=== PATIENT | female | born 1940 | race Caucasian/White ===

== ENCOUNTER 2017-09-18 19:50 | Inpatient (IN) | payer OTHER, MEDICARE ==
[~2017-09-18] VITALS: Ht 165.1 cm; Wt 70.3 kg
[~2017-09-18 19:50] MED LIST: ADVAIR 250-501 EACH INH; ADVAIR DISKUS 21 DSK INH; ALLEGRA ALLERG180 M1 PO; ASPIRIN EC81 M1 PO; B-12500 MC1 PO; BACTRIM 400-801 EACH PO; BETAMETHASONE D15 G4 TOP; CALCIUM + D 5001 TAB PO; CALCIUM + D 6001 TAB PO; CENTRUM SILVER1 EAC3 PO; CO Q-10100 MG PO; CO Q-10200 MG PO; CO-Q-10 200 MG-1 SGL PO; COLACE100 MG PO; COUMADIN 5 MG TA5 MG PO; CRESTOR20 M2 PO; CRESTOR40 M2 PO; DILANTIN100 M1 PO; DOXYCYCLINE HY100 M4 PO; DULCOLAX5 M1 PO; FIBER 6 TABLE1000 MG PO; FISH OIL 1,0001 EAC1 PO; FUROSEMIDE20 M1 PO; GLUCOSAMINE CHO1 CAP PO; GLUCOSAMINE HC500 MG PO; GLUCOSAMINE-CH1 EACH PO; HEARTBURN PREVE20 MG PO; HYDROCODON-ACE1 EAC2 PO; K-TAB ER20 MEQ PO; LASIX20 M1 IV; LASIX80 M1 PO; LEVOCETIRIZINE D5 M1 PO; LEVOFLOXACIN500 MG PO; LEVOTHYROXINE50 MCG PO; LIORESAL 10MG T10 MG PO; LIPITOR40 M1 PO; LIPITOR80 M1 PO; LOPRESSOR50 M1 PO; LOVAZA1 GM PO; MEDROL DOSEPAK1 PAC PO; METOLAZONE2.5 M1 PO; METOPROLOL TART50 M1 PO; MOBIC15 MG PO; MUCINEX1200 MG PO; NASONEX17 GM NASB; NATURAL IRON65 MG PO; NEURONTIN300 M1 PO; OMEGA 31000 MG PO; OMEGA-31 SGL PO; PREDNISONE20 M1 PO; PRINIVIL5 M1 PO; PROAIR HFA0.09 MG/Ac INH; SYNTHROID25 MCG PO; TYLENOL EXTRA500 M2 PO; VICODIN 5-3001 EACH PO; VITAB121000 PO; VITAMIN C1000 M1 PO; VITAMIN C1000 M4 PO; VITAMIN D-32000 UNIT PO; VITAMIN D32000 IU PO; ZETIA10 M1 PO
--- NOTE | 2017-09-18 21:31 | ED UPPER/LOWER EXTREMITY COMPL ---
History of Present Illness General Chief Complaint: General Adult Stated Complaint: "RT LEG RED, SWOLLEN, PAINFULL, STIFF" Source: patient Exam Limitations: no limitations Vital Signs & Intake/Output Vital Signs & Intake/Output Vital Signs Date Time Temp Pulse Resp B/P B/P Pulse O2 O2 Flow FiO2 Mean Ox Delivery Rate 09/186 98.5 111 20 136/67 95 Room Air 09/18 1956 95.8 116 18 129/78 97 Room Air Allergies Coded Allergies: naproxen (Intermediate, RASH, ABD PAIN 03/31/17) tramadol (Intermediate, HEART PALPATATIONS 09/18/17) Penicillins (Mild, RASH 03/31/17) amoxapine (Mild, RASH 03/31/17) duloxetine (From CYMBALTA) (Mild, BLURRY VISION 09/18/17) gabapentin (Mild, BLURRY VISION 09/18/17) pregabalin (From LYRICA) (Mild, BLURRY VISION 09/18/17) amoxicillin (UNKNOWN PER PT EITHER HEART PALPITATIONS OR RASH 04/07/17) PER ORDER SHEET OF 02/18/17 (SJS) ibuprofen (HEART RACING 03/31/17) Reconcile Medications Acetaminophen (Tylenol Extra Strength) 500 MG TABLET 2 TAB PO PRN PAIN ( Reported) Ascorbic Acid (Vitamin C) 1,000 MG TABLET 2,000 MG PO 1200 SUPPLEMENT ( Reported) Aspirin (Ecotrin*) 81 MG TABLET.DR 1 TAB PO QAM HEART/BLOOD (Reported) Betamethasone Dipropionate 0.05 % CREAM..G. 1 FLETCHER TOP BID LEG RASH (Reported) apply to affected area(s) Bisacodyl (Dulcolax) 5 MG TABLET.DR 1 TAB PO QPM GI (Reported) Bran/Gum/Fib/Meredith/Psyl/Kelp/Pec (Fiber 6 Tablet) (Unknown Strength) TABLET ( Unknown Dose) PO QAM OAT BRAN 1000MG SUPPLEMENT (Reported) Cholecalciferol (Vitamin D3) (Vitamin D-3) 2,000 UNIT TABLET 1 TAB PO 1200 VITAMIN SUPPORT (Reported) Cyanocobalamin (Vitamin B-12) (B-12) 500 MCG TABLET 1 TAB PO 1200 VITAMIN SUPPORT (Reported) Ezetimibe (Zetia) 10 MG TABLET 1 TAB PO QPM CHOLESTEROL (Reported) Famotidine (Heartburn Prevention) 20 MG TABLET 1 TAB PO BID GI ANTACID ( Reported) Furosemide (Lasix) 80 MG TABLET 1 TAB PO DAILY Water pill . Gabapentin (Neurontin) 300 MG CAPSULE 1 CAP PO QPM NERVE PAIN (Reported) Glucosam HCl/Chondro Ulloa A/C/Mn (Glucosamine-Chondroitin Cap) 1 EACH CAPSULE 1 CAP PO 1200 SUPPLEMENT (Reported) Hydrocodone/Acetaminophen (Vicodin 5-300 MG Tablet) 5 MG-300 MG TABLET 1 TAB PO AD PRN PAIN (Reported) Levocetirizine Dihydrochloride 5 MG TABLET 1 TAB PO QPM ALLERGIES (Reported) Levothyroxine Sodium 50 MCG TABLET 1 TAB PO DAILY AC THYROID (Reported) Lisinopril (Prinivil) 5 MG TABLET 1 TAB PO DAILY blood pressure . Metoprolol Tartrate (Lopressor) 50 MG TABLET 1 TAB PO BID HTN (Reported) Mometasone Furoate (Nasonex) 50 MCG SPRAY.PUMP 1 SPRAY NASB DAILY PRN ALLERGIES (Reported) Multivit-Min/FA/Lycopen/Lutein (Centrum Silver Tablet) 0.4 MG-300 MCG-250 MCG TABLET 1 TAB PO 1200 VITAMIN SUPPORT (Reported) Hurley-3 Fatty Acids/Fish Oil (Fish Oil 1,000 MG Softgel) 1 EACH CAPSULE 2 CAP PO 1200 SUPLEMENT (Reported) Phenytoin (Dilantin) 100 MG CAPSULE 2 CAP PO BID SEIZURES (Reported) Potassium Chloride (K-Tab ER) 20 MEQ TABLET.ER 2 TAB PO DAILY Potassium supplement . Prednisone 20 MG TABLET 1 TAB PO TID STEROID (Reported) Rosuvastatin Calcium (Crestor) 40 MG TABLET 1 TAB PO QPM CHOLESTEROL ( Reported) Sulfamethoxazole/Trimethoprim (Bactrim 400-80 MG Tablet) 400 MG-80 MG TABLET 1 TAB PO QAM PROPHYLAXIS (Reported) Ubidecarenone (Co Q-10) 200 MG CAPSULE 1 CAP PO 1200 SUPPLEMENT (Reported) Triage Note: PT FROM HOME C/O RIGH LEG SWELLING X2 DAYS. PT STATES 2 DAYS AGO PT WALKED INTO A BOX AND HAD A SMALL ABRASION TO PTS RIGHT LOWER EXT, PT STATES THAT CLEAR FLOOD WAS OOZING OUT ALONG WITH MINIMAL AMOUNTS OF BLOOD. PTS LEG CONTINUED TO OOZE THROUGHOUT THE PAST 2X DAYS, PT STATED SHE APPLIED AN LUIS MIGUEL WRAP ON THE OOZING LAST NIGHT. WHEN PT AWOKE THE LUIS MIGUEL WRAP WAS TOO TIGHT AND PT STATED THE LOWER EXT WAS WARM, TENDER,SWOLLEN AND RED. THIS RN UNABLE TO VIEW FULL LEG IN TRIAGE DUE TO PT WEARING JEANS, PT STATES UNABLE TO MOVE LEG "IT FEELS STIFF AND LIKE ITS GOING TO BURST". PT IS ON LASIX 80MG 2 TIMES DAILY. PT PROVIDED WITH WHEELCHAIR. AFEBRILE IN TRIAGE. Triage Nurses Notes Reviewed? yes Onset: Gradual Duration: hour(s): Timing: recent history Severity: moderate Pain/Injury Location: Right: Leg. Method of Injury: redness, swelling Modifying Factors: Improves With: rest. Worsens With: movement. Associated Symptoms: swelling, redness HPI: 76 yo woman on steroids for "kidney problems" presents with redness, tenderness, swelling of right leg. "At 3:15 there was a red spot that was tender.... and then over the next several hours, the redness got worse... it started to spread along my leg." She notes no fever, chills, dyspnea. She is otherwise well. Past History Travel History Traveled to [place] past 21 day No Medical History Any Pertinent Medical History? see below for history Neurological: seizure EENT: allergies, hearing loss Cardiovascular: hypertension, hyperlipidemia, CLOGGED HEART ARTERIES Respiratory: NONE Gastrointestinal: NONE Hepatic: NONE Renal: NONE Musculoskeletal: ARTHRITIS LYMPHeDEMA Psychiatric: PANIC ATTACK Endocrine: NONE Blood Disorders: NONE Cancer(s): NONE BASKETBALL SCOUT/Reproductive: NONE History of MRSA: No History of VRE: No History of CDIFF: No Surgical History Surgical History: hip replacement, knee replacement Psychosocial History Who do you live with Spouse Services at Home None What is your primary language Bruneian Tobacco Use: Never used Family History Family History, If Any: DAUGHTER MOTHER FH: breast cancer FATHER FH: Parkinson's disease Relation not specified for: FH: rheumatoid arthritis Hx Contributory? No Review of Systems Review of Systems Constitutional: Reports: no symptoms. EENTM: Reports: no symptoms. Respiratory: Reports: no symptoms. Cardiovascular: Reports: no symptoms. Gastrointestinal/Abdominal: Reports: no symptoms. Genitourinary: Reports: no symptoms. Musculoskeletal: Reports: no symptoms. Skin: Reports: no symptoms. Neurological/Psychological: Reports: no symptoms. Hematologic/Endocrine: Reports: no symptoms. Immunological: Reports: no symptoms. All Other Systems: Reviewed and Negative Physical Exam Physical Exam General Appearance: well developed/nourished, mild distress Head: atraumatic Eyes: Bilateral: normal appearance. Ears, Nose, Throat: normal pharynx, normal ENT inspection, hearing grossly normal Neck: normal inspection, supple Cardiovascular/Respiratory: regular rate/rhythm Back: normal inspection Leg Right: induration, redness, tenderness on Skin: intact, normal color, warm/dry Lymphatic: no anterior cervical chavo Progress Differential Diagnosis: cellulitis vs other. Plan of Care: Orders Procedure Date/time Status Saline Lock 09/18 2309 Active Misc Message 09/18 2309 Active ED Holding Orders 09/18 2309 Active Admit to inpatient 09/18 2309 Active Vital Signs 09/18 2309 Active EKG 09/18 2309 Active Code Status 09/18 2309 Active BLOOD CULTURE 09/18 2144 Active COMPREHENSIVE METABOLIC PANEL 09/18 2140 Complete CBC WITHOUT DIFFERENTIAL 09/18 2140 Complete Current Medications Sig/Arsalan Start time Last Medication Dose Stop Time Status Admin Sodium Chloride 1,000 ML BOLUS ONE 09/18 2299 AC 09/18 (Normal Saline 0.9%) 09/18 2359 2336 Laboratory Tests 09/18/170: Anion Gap 8, Estimated GFR > 60, BUN/Creatinine Ratio 37.8 H, Glucose 157 H, Calcium 8.3 L, Total Bilirubin 0.3, AST 50 H, ALT 44, Alkaline Phosphatase 86, Total Protein 6.1 L, Albumin 2.9 L, Globulin 3.2, Albumin/Globulin Ratio 0.9 L, CBC w Diff MAN DIFF ORDERED, RBC 4.17 L, MCV 100.2 H, MCH 34.2 H, MCHC 34.2, RDW 13.2, MPV 7.1 L, Gran % 93.9 H, Lymphocytes % 3.6 L, Monocytes % 2.2, Eosinophils % 0.1, Basophils % 0.2, Absolute Granulocytes 17.3 H, Segmented Neutrophils 84 H, Band Neutrophils 4, Absolute Lymphocytes 0.7 L, Lymphocytes 9 L, Monocytes 2, Absolute Monocytes 0.4, Absolute Eosinophils 0, Absolute Basophils 0, Metamyelocytes 1, Platelet Estimate ADEQUATE, Macrocytic Cells 1+, Fld Total RBCs Counted 100 Microbiology 09/18 2239 BLOOD: Blood Culture - RECD 09/18 2140 BLOOD: Blood Culture - CAN Cancelled: Quantity not sufficient for Aerobic blood culture bottle. Diagnostic Imaging: Viewed by Me: Radiology Read. Discussed w/RAD: Radiology Read. Radiology Impression: PATIENT: JENSEN MILLER PRESENT AGE: 76 PATIENT ACCOUNT NO: [id number] : 40 LOCATION: [facility] ORDERING PHYSICIAN: Sagar Cuevas MD SERVICE DATE: 09/18/17 EXAM TYPE: RAD - XRY-KNEE COMPLETE RIGHT; [id number], RIGHT EXAMINATION: XR TIBIA AND FIBULA, RIGHT XR KNEE, RIGHT CLINICAL INFORMATION: Edema, question septicemias gas. COMPARISON: None TECHNIQUE: AP and lateral views of the right tibia and fibula were obtained. 4 views of the right knee were obtained. FINDINGS: Right knee: The patient is status post total knee arthroplasty. There is diffuse edema of the subcutaneous tissues of the knee. There is no joint effusion. No subcutaneous foci of gas. No evidence of hardware loosening. Right tibia, fibula : There is diffuse edema of the subcutaneous tissues of the right lower extremity. No foci of gas identified on the radiographs. The right tibia and fibula appear intact. Limited views of the right ankle are grossly unremarkable. IMPRESSION: Diffuse subcutaneous edema involving the right knee and right lower extremity. No subcutaneous emphysema identified. Right knee hardware appears intact. DICTATED BY: Socorro Winters MD DATE/TIME DICTATED:09/18/172212 COMPUTATIONAL SCIENTIST:ANIYA DATE/TIME TRANSCRIBED:09/18/172212 CONFIDENTIAL, DO NOT COPY WITHOUT APPROPRIATE AUTHORIZATION. <Electronically signed in Other Vendor System> SIGNED BY: Socorro Winters MD 09/18/172218 Initial ED EKG: sinus tach, non specific st segment changes. Departure Departure Disposition: STILL A PATIENT Condition: Stable Clinical Impression Primary Impression: Cellulitis Referrals: Jaron Tanner MD (PCP/Family) Departure Forms: Customer Survey General Discharge Information Admission Note Spoke With: Oneil FONTENOT,Leticia Documentation of Exam: Documentation of any treatments & extenuating circumstances including Concerns Regarding Discharge (functional status, medication knowledge or non-compliance, living conditions, etc.) that warrant an admission rather than observation: Pt on chronic steroids with cellulitis, elevated wbc count, merits iv abx, close exam.
[2017-09-18 22:17] LABS: ABSOLUTE BASOPHIL COUNT 0 /CUMM (0.0-0.2); ABSOLUTE EOSINOPHIL COUNT 0 /CUMM (0.0-0.7); ABSOLUTE GRANULOCYTE CT 17.3 /CUMM (1.4-6.5); ABSOLUTE LYMPH COUNT 0.7 /CUMM (1.2-3.4); ABSOLUTE MONOCYTE COUNT 0.4 /CUMM (0.10-0.60); BASOPHIL % 0.2 % (0.0-2.0); EOSINOPHIL % 0.1 % (0-5); GRANULOCYTE % 93.9 % (42.2-75.2); HEMATOCRIT 41.8 % (37-47); MEAN CORPUSCULAR HGB 34.2 PG (27.0-31.0); MEAN CORPUSCULAR HGB CONC 34.2 G/DL (33.0-37.0); MEAN CORPUSCULAR VOLUME 100.2 FL (81.0-99.0); MEAN PLATELET VOLUME 7.1 FL (7.4-10.4); PLATELET COUNT 397 /CUMM (130-400); RBC DISTRIBUTION WIDTH 13.2 % (11.5-14.5); RED BLOOD CELL CT 4.17 /CUMM (4.20-5.40); WHITE BLOOD CELL COUNT 18.5 /CUMM (4.8-10.8)
--- NOTE | 2017-09-18 22:19 | RADIOLOGY REPORT ---
EXAMINATION: XR TIBIA AND FIBULA, RIGHT XR KNEE, RIGHT CLINICAL INFORMATION: Edema, question septicemias gas. COMPARISON: None TECHNIQUE: AP and lateral views of the right tibia and fibula were obtained. 4 views of the right knee were obtained. FINDINGS: Right knee: The patient is status post total knee arthroplasty. There is diffuse edema of the subcutaneous tissues of the knee. There is no joint effusion. No subcutaneous foci of gas. No evidence of hardware loosening. Right tibia, fibula: There is diffuse edema of the subcutaneous tissues of the right lower extremity. No foci of gas identified on the radiographs. The right tibia and fibula appear intact. Limited views of the right ankle are grossly unremarkable. IMPRESSION: Diffuse subcutaneous edema involving the right knee and right lower extremity. No subcutaneous emphysema identified. Right knee hardware appears intact.
--- NOTE | 2017-09-19 01:10 | History & Physical ---
Clayton FONTENOT,[facility] 09/19/17 0110: General Information and HPI MD Statement: I have seen and personally examined JENSEN CURIEL and documented this H&P. The patient is a 76 year old F who presented with a patient stated chief complaint of [right leg swelling, pain and redness]. Source of Information: patient, old records Exam Limitations: unable to give history, not alert/orientated, confusion, poor historian History of Present Illness: The patient is a 76-year-old female with past medical history of hypertension, hyperlipidemia, peripheral vascular disease, seizure disorder, chronic lower extremity lymphedema, nephrotic syndrome (renal biopsy shows FSGS) on steroids and chronic lower back pain. She presented to [facility] on 09/19 with complaint of swelling, pain and redness of right lower extremity. The patient was in her state of health until 2 days back when she hit the refrigerator box. She had a small abrasion on right lower extremity near her ankle. It was oozing clear liquid. Yesterday night she wrapped her right lower extremity in Galindo wrap. When she woke up she felt that Galindo wrap was too tight and her lower extremity was significantly swollen. Redness was previously present but has become worse and was extending upwards. Her leg is extremely painful. She denies any fevers or chills. She reports shortness of breath on review of system. Denies chest pain palpitations nausea vomiting or abdominal pain. Of note last month patient had a venous procedure with as per patient's . I called patient's to obtain the history and he gives a similar story. Patient appears to be little bit confused. Is alert but not oriented. Complains of 10/10 leg pain. Of note pt was recently admitted to ICU [facility] and was discharged on 05/26/2017 after being treated forl severely hyponatremia and hypokalemia likely secondary to overdiuresis in setting of nephrotic syndrome Allergies/Medications Allergies: Coded Allergies: naproxen (Intermediate, RASH, ABD PAIN 03/31/17) tramadol (Intermediate, HEART PALPATATIONS 09/18/17) Penicillins (Mild, RASH 03/31/17) amoxapine (Mild, RASH 03/31/17) duloxetine (From CYMBALTA) (Mild, BLURRY VISION 09/18/17) gabapentin (Mild, BLURRY VISION 09/18/17) pregabalin (From LYRICA) (Mild, BLURRY VISION 09/18/17) amoxicillin (UNKNOWN PER PT EITHER HEART PALPITATIONS OR RASH 04/07/17) PER ORDER SHEET OF 02/18/17 (SJS) ibuprofen (HEART RACING 03/31/17) Home Med list Acetaminophen (Tylenol Extra Strength) 500 MG TABLET 2 TAB PO PRN PAIN ( Reported) Ascorbic Acid (Vitamin C) 1,000 MG TABLET 2,000 MG PO 1200 SUPPLEMENT ( Reported) Aspirin (Ecotrin*) 81 MG TABLET.DR 1 TAB PO QAM HEART/BLOOD (Reported) Betamethasone Dipropionate 0.05 % CREAM..G. 1 FLETCHER TOP BID LEG RASH (Reported) apply to affected area(s) Bisacodyl (Dulcolax) 5 MG TABLET.DR 1 TAB PO QPM GI (Reported) Bran/Gum/Fib/Meredith/Psyl/Kelp/Pec (Fiber 6 Tablet) (Unknown Strength) TABLET ( Unknown Dose) PO QAM OAT BRAN 1000MG SUPPLEMENT (Reported) Cholecalciferol (Vitamin D3) (Vitamin D-3) 2,000 UNIT TABLET 1 TAB PO 1200 VITAMIN SUPPORT (Reported) Cyanocobalamin (Vitamin B-12) (B-12) 500 MCG TABLET 1 TAB PO 1200 VITAMIN SUPPORT (Reported) Ezetimibe (Zetia) 10 MG TABLET 1 TAB PO QPM CHOLESTEROL (Reported) Famotidine (Heartburn Prevention) 20 MG TABLET 2 TAB PO BID GI ANTACID ( Reported) Furosemide (Lasix) 80 MG TABLET 1 TAB PO DAILY Water pill . Glucosam HCl/Chondro Ulloa A/C/Mn (Glucosamine-Chondroitin Cap) 1 EACH CAPSULE 1 CAP PO 1200 SUPPLEMENT (Reported) Hydrocodone/Acetaminophen (Vicodin 5-300 MG Tablet) 5 MG-300 MG TABLET 1 TAB PO AD PRN PAIN (Reported) Levocetirizine Dihydrochloride 5 MG TABLET 1 TAB PO QPM ALLERGIES (Reported) Levothyroxine Sodium 50 MCG TABLET 1 TAB PO DAILY AC THYROID (Reported) Metolazone 2.5 MG TABLET 1 TAB PO DAILY WATER PILL (Reported) Metoprolol Tartrate (Lopressor) 50 MG TABLET 1 TAB PO BID HTN (Reported) Mometasone Furoate (Nasonex) 50 MCG SPRAY.PUMP 1 SPRAY NASB DAILY PRN ALLERGIES (Reported) Multivit-Min/FA/Lycopen/Lutein (Centrum Silver Tablet) 0.4 MG-300 MCG-250 MCG TABLET 1 TAB PO 1200 VITAMIN SUPPORT (Reported) Refugio-3 Fatty Acids/Fish Oil (Fish Oil 1,000 MG Softgel) 1 EACH CAPSULE 2 CAP PO 1200 SUPLEMENT (Reported) Phenytoin (Dilantin) 100 MG CAPSULE 2 CAP PO BID SEIZURES (Reported) Potassium Chloride (K-Tab ER) 20 MEQ TABLET.ER 2 TAB PO DAILY Potassium supplement . Prednisone 20 MG TABLET 1 TAB PO BID NEPHROTIC SYNDROME (Reported) Rosuvastatin Calcium (Crestor) 40 MG TABLET 1 TAB PO QPM CHOLESTEROL ( Reported) Spironolactone 50 MG TABLET 1 TAB PO DAILY BP (Reported) Sulfamethoxazole/Trimethoprim (Bactrim 400-80 MG Tablet) 400 MG-80 MG TABLET 1 TAB PO QAM PROPHYLAXIS (Reported) Tizanidine HCl (Zanaflex) 4 MG CAPSULE 1 CAP PO DAILY MUSCLE RELAXER ( Reported) Ubidecarenone (Co Q-10) 200 MG CAPSULE 1 CAP PO 1200 SUPPLEMENT (Reported) Past History Travel History Traveled to [place] past 21 day No Medical History Neurological: seizure EENT: allergies, hearing loss Cardiovascular: hypertension, hyperlipidemia, CLOGGED HEART ARTERIES Respiratory: NONE Gastrointestinal: NONE Hepatic: NONE Renal: NONE Musculoskeletal: ARTHRITIS LYMPHeDEMA Psychiatric: PANIC ATTACK Endocrine: NONE Blood Disorders: NONE Cancer(s): NONE 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 Home Who Do You Live With? spouse Services at Home: None Primary Language: Yoruba Smoking Status: Never Smoked ETOH Use: denies use Illicit Drug Use: denies illicit drug use Living Will? yes Power of Anesthesiologists' Assistant/HCP? yes Name of POA/HCP: Nitesh Curiel Functional Ability ADLs Independent: dressing, eating, toileting, bathing. Ambulation: independent IADLs Independent: shopping, housework, finances, food prep, telephone, transportation , medication admin. Review of Systems Review of Systems Constitutional: Reports: see HPI. Denies: chills, malaise. EENTM: Reports: no symptoms. Cardiovascular: Denies: chest pain, palpitations. Respiratory: Reports: short of breath. Denies: cough, sputum production. GI: Reports: no symptoms. Genitourinary: Reports: no symptoms. Musculoskeletal: Reports: no symptoms. Skin: Reports: no symptoms. Exam & Diagnostic Data Last 24 Hrs of Vital Signs/I&O Vital Signs Date Time Temp Pulse Resp B/P B/P Pulse O2 O2 Flow FiO2 Mean Ox Delivery Rate 09/19 0156 97.7 81 18 110/59 98 Room Air 09/18 2246 98.5 111 20 136/67 95 Room Air 09/18 1956 95.8 116 18 129/78 97 Room Air Intake & Output 09/19 0800 09/19 0000 09/18 1600 Intake Total 1000 0 Output Total Balance 1000 0 Intake, IV 1000 Intake, Oral 0 Patient 155 lb Weight Weight Reported by Patient Measurement Method Physical Exam General Appearance Alert, Cooperative, confused Skin No Rashes Skin Temp/Moisture Exam: Warm/Dry HEENT Atraumatic Neck No JVD Cardiovascular Normal S1, Normal S2, No Murmurs Lungs Clear to Auscultation Abdomen Soft Neurological Normal Speech Extremities Normal Pulses, R leg stiff, ROM limited 2/2 pain, able to bend the knee Body Front and Back (Adult) 1) edema, erythema, tenderness, warm Last 24 Hrs of Labs/Jeyson: Laboratory Tests 09/18/17 2210: Anion Gap 8, Estimated GFR > 60, BUN/Creatinine Ratio 37.8 H, Glucose 157 H, Calcium 8.3 L, Total Bilirubin 0.3, AST 50 H, ALT 44, Alkaline Phosphatase 86, Total Protein 6.1 L, Albumin 2.9 L, Globulin 3.2, Albumin/Globulin Ratio 0.9 L, D-Dimer High Sensitivty 217, CBC w Diff MAN DIFF ORDERED, RBC 4.17 L, MCV 100.2 H, MCH 34.2 H, MCHC 34.2, RDW 13.2, MPV 7.1 L, Gran % 93.9 H, Lymphocytes % 3.6 L, Monocytes % 2.2, Eosinophils % 0.1, Basophils % 0.2, Absolute Granulocytes 17.3 H, Segmented Neutrophils 84 H, Band Neutrophils 4, Absolute Lymphocytes 0.7 L, Lymphocytes 9 L, Monocytes 2, Absolute Monocytes 0.4, Absolute Eosinophils 0, Absolute Basophils 0, Metamyelocytes 1, Platelet Estimate ADEQUATE, Macrocytic Cells 1+, Fld Total RBCs Counted 100 Microbiology 09/19 0115 NASOPHARYN: Influenza Virus A & B Rapid Smear - COMP 09/18 2240 BLOOD: Blood Culture - RECD 09/18 2140 BLOOD: Blood Culture - CAN Cancelled: Quantity not sufficient for Aerobic blood culture bottle. Diagnostic Data Other Results XRY-KNEE COMPLETE RIGHT; [id number], RIGHT IMPRESSION: Diffuse subcutaneous edema involving the right knee and right lower extremity. No subcutaneous emphysema identified. Right knee hardware appears intact. Assessment/Plan Assessment: The patient is a 76-year-old female with past medical history of hypertension, hyperlipidemia, peripheral vascular disease, seizure disorder, chronic lower extremity lymphedema, nephrotic syndrome (renal biopsy shows FSGS) on steroids and chronic lower back pain. She presented to [facility] ED on 09/19 with complaint of swelling, pain and redness of right lower extremity. -VS tachycardic 116, rest WNL -Pertinent labs WBC count 18.5 with 93.9 percentage of granulocytes, no bands, sodium 128 bicarbonate 34, lactic acid 1.3, AST 50, D-Dimer 217 -Imaging findings discussed above Patient received IV Tylenol, cefazolin and 1 L of normal saline blood cultures 2 were drawn and influenza was negative. The patient is being admitted to general medicine floor and is being treated and evaluated for following conditions #Sepsis secondary to nonpurulent right lower extremity cellulitis The patient is presenting with right lower extremity edema, erythema and tenderness. Her white count is 18.5 with 93.9 percentage of granulocytes, no bands which can be be attributed to chronic steroid use however infectious cause should not be ruled out. Patient is altered/confused and appears to be septic with tachycardia. -Monitor fever and WBC curve -Leg elevation -Follow blood cultures -Continue IV cefazolin Q8 -Doppler ultrasound to rule out DVT -Cellulitis area has been marked monitor for signs of resolution -IVF gentle hydration; be cautious -If patient becomes hypotensive consider IV steroids #Chronic moderate hyponatremia Patient is presenting with sodium of 128, which is around her baseline -Consider 1 L fluid restriction #History of nephrotic syndrome -Continue home dose of PO prednisone -Continue Bactrim for PCP prophylaxis in context of chronic steroid use -If blood pressure drops got as consider IV steroids #Chronic lower extremity lymhedema -Leg elevation -We will resume patient's diuretic regimen Lasix 80 mg, metolazone 2.5 mg, spironolactone 50 mg from tomorrow if blood pressure allows #Chronic medical conditions hyperlipidemia, GERD, HTN and chronic back pain continue Lipitor, Zetia, Pepcid, metoprolol and Vicodin As Ranked By This Provider Problem List: 1. Cellulitis Core Measures/Misc (05/08) Acute Coronary Syndrome ACS Diagnosis: No Congestive Heart Failure Congestive Heart Failure Diagnosis No Cerebrovascular Accident CVA/TIA Diagnosis: No VTE (View Protocol) VTE Risk Factors Age>40 No Mechanical VTE Prophylaxis d/t N/A MechProphylax Ordered No VTE Pharm Prophylaxis d/t NA PharmProphylax ordered Sepsis (View protocol) Sepsis Present: Yes Oneil FONTENOT, [facility] 09/19/17 0429: Attending MD Review Statement Attending Statement Attending MD Statement: examined this patient, discuss w/resident/PA/CLOTH WORKER, agreed w/resident/PA/CLOTH WORKER, discussed with family, reviewed images, amended to note Attending Assessment/Plan: 76 yo F with h/o HTN, PVD, chronic lymphedema, nephrotic syndrome (renal biopsy shows FSGS) on steroids, chronic back pain, seizure disorder, nonobstructive CAD , is here for evaluation of right lower extremity. Patient's provided history reporting trauma to patient's leg 2 days ago, resulting in small abrasion near the ankle. He did notice some clear to serosanguinous discharge from the right leg as she has chronic lymphedema. He wrapped her leg in GALINDO wrap last night and noted it was too tight this morning. Gradually erythema extended from ankle upwards. states, patient has some baseline redness to her legs but this is worse. Patient reports pain in the leg. Chills+. Of note, patient has had an outpatient 'vein procedure' in the past [address] Diallo. is not clear of what exactly the procedure was. Vitals: Tmax 99.2, HR 80-100's, BP 110/59, sats 98% RA. Exam: Patient appears in distress due to the chills and leg being stiff. Slightly confused. Right leg has diffuse confluent erythematous area extending from ankle upto just below the knee, warm, tender and pitting edema with some clear discharge noted. Peripheral pulses well felt. Labs: WBC 18.5 (on steroids), bands 4, Na 128, bicarb 35, BUN 34, creat 0.9, glucose 157, lactic acid 1.6. Right knee/ tib-fib Xray: diffuse subcutaneous edema involving right knee and right lower extremity. Right knee hardware intact. No foci of gas. Assessment and plan: 1. Right lower extremity cellulitis 2. Sepsis 3. Chronic lymphedema 4. Nephrotic syndrome on chronic steroids 5. Chronic back pain on opiates 6. Chronic hyponatremia - Admit to general medicine - Elevate bilateral lower extremities - Blood cultures x 2 - IV cefazolin - Obtain LE dopplers rule out DVT - Wound consult - Consider Vascular consult - Pain management with tylenol and vicodin - Gentle hydration x 1 bag - Resume diuretics from AM, maintain 1000 ml fluid restriction. - Resume prednisone, if hypotensive give stress dose steroids - Nephro consult DVT ppx Hep SC. Full code. Loan Donaldson 09/19/17 0431: Resident Review Statement Resident Statement: discussed with advisory intern Other Findings: 76-year-old woman with past medical history of nephrotic syndrome w renal bx suggestive FSGS, diastolic CHF, hypertension, hyperlipidemia, peripheral vascular disease, chronic lower extremity lymphedema, chronic low back pain presented to ER with complaint of right leg swelling,, redness and pain for last 2 days. According to patient she had a small abrasion on her right leg 2 days ago. There was also mild erythema and swelling. She wrapped her leg in an Galindo wrap last night but next day her swelling and redness was worse. Her leg was more painful and she was having difficulty walking. Upon our evaluation patient is complaining of pain in her right leg. She was moaning in pain and not much oriented. She was also looking drowsy and not able to provide much history. We called her for additional information. No history of fever or chills. Vitals on admission: Temperature 95.8, pulse 116, respiratory rate 18, blood pressure 129/78 and oxygen saturation 97% on room air. Pertinent physical exam findings: Drowsy and disoriented. Tachycardia on heart auscultation. Right lower extremity is swollen and erythematous. It is warm and tender to touch. There is also a small abrasion on the lateral side of lower leg. No discharge noted. Redness is spreading up to inner side of her thigh. There is a vertical scar denia on her right knee. She is able to bend her knee. Pulses are difficult to palpate because of swelling. Right leg is also swollen with 2+ pitting edema. Pertinent labs: WBC count 18.5, sodium 128, potassium 3.6, chloride 86, bicarbonate 35, calcium 8.3, AST 50, albumin 2.9. D-dimer 217 Knee x-ray showed diffuse subcutaneous edema involving the right knee and right lower extremity. No subcutaneous emphysema identified. Right knee hardware appears intact. Right tibia fibula x-ray also shows diffuse subcutaneous edema. In ER she was given IV fluids, cefazolin and IV Tylenol. Assessment and plan 76-year-old woman with past medical history of nephrotic syndrome w renal bx suggestive FSGS, diastolic CHF, hypertension, hyperlipidemia, peripheral vascular disease, chronic lower extremity lymphedema, chronic low back pain. Problem list 1. Sepsis secondary to her lower extremity cellulitis 2. Leukocytosis. Sepsis vs steroids 3. History of nephrotic syndrome w renal bx suggestive FSGS. On prednisone taper (20 mg BID till 09/23, 15 mg BID 09/24-09/30, 10 mg BID 10/01-10/07, 5 mg BID 10/15 -10/21). Plan to start her on tacrolimus on 10/03. She is on Lasix, metolazone and spironolactone. 4. History of hypertension/hyperlipidemia. On metoprolol/Zetia and Crestor 5. History of chronic hyponatremia. On 1 L fluid restriction 6. History of seizure disorder on Dilantin 7. On Bactrim, ? PCP prophylaxis given chronic steroid use 8. History of GERD on famotidine 9. History of hypothyroidism 10. History of chronic low back pain. On Tylenol and Vicodin at home Plan * Admit to general medicine floor * Monitor vitals closely * Continue IV cefazolin * Follow blood cultures * Wound consult in a.m. * Leg elevation * Doppler venous ultrasound of right lower extremity to rule out DVT * Nephro consult in a.m. * Monitor electrolytes daily * Continue on her home medications * Heart healthy diet with 1 L fluid restriction * DVT prophylaxis * Pain management pathway * Patient is full code
[2017-09-19 02:54] VITALS: BP 102/54
[2017-09-19] MEDS ORDERED: SPIRONOLACTONE50 M1 PO (03:10)
[2017-09-19] MEDS ORDERED: ZANAFLEX4 M2 PO (03:11)
[2017-09-19] MEDS ORDERED: METOLAZONE2.5 M1 PO (03:12)
--- NOTE | 2017-09-19 03:48 | Admission Certification ---
Admission Certification Certification Statement - As attending physician, I certify that at the time of - admission, based on clinical presentation, severity of - symptoms, need for further diagnostic testing and - therapeutic interventions, and risk of adverse outcomes - without in-hospital treatment, in my clinical assessment, - this patient requires an acute hospital stay for a minimum - of two nights or longer. I have also considered psychsocial - factors such as support system, advanced age, financial - issues, cognitive issues, and failed out-patient treatments, - past re-admission history, safety of patient, and lack of - compliance as applicable. Specific rationale supporting this admission is: Sepsis, Right lower extremity cellulitis.
[2017-09-19 06:20] VITALS: BP 112/56
--- NOTE | 2017-09-19 07:27 | PN- Housestaff ---
Keshav FONTENOT,[facility] 09/19/17 0727: Subjective Follow-up For: Right lower extremity cellulitis Sepsis Chronic lymphedema Nephrotic syndrome on chronic steroids Chronic back pain on opiates Chronic hyponatremia Subjective: No acute events. Patient states she is doing ok. States R leg is sore. Review of Systems Constitutional: Reports: no symptoms. Cardiovascular: Reports: no symptoms. Respiratory: Reports: no symptoms. Gastrointestinal: Reports: no symptoms. Genitourinary: Reports: no symptoms. Musculoskeletal: Reports: see HPI (RLE cellulitis). Skin: Reports: see HPI (RLE cellulitis). Objective Last 24 Hrs of Vital Signs/I&O Vital Signs Date Time Temp Pulse Resp B/P B/P Pulse O2 O2 Flow FiO2 Mean Ox Delivery Rate 09/19 2100 100 120/60 09/19 1408 98.0 100 20 112/78 93 Room Air 09/19 0833 110/60 09/19 0620 98.6 111 20 112/56 95 Room Air 09/19 0254 99.2 109 18 102/54 92 Room Air 09/19 0156 97.7 81 18 110/59 98 Room Air Intake & Output 09/19 1600 09/19 0800 09/19 0000 Intake Total 1050 1520 0 Output Total 600 250 Balance 450 1270 0 Intake, IV 800 1400 Intake, Oral 250 120 0 Output, Urine 600 250 Patient 155 lb 155 lb Weight Weight Reported by Patient Measurement Method Physical Exam General Appearance: Alert, Oriented X3, Cooperative, No Acute Distress Skin: RLE cellulitis apepars to be slightly improve per markings. Cardiovascular: Regular Rate, Normal S1, Normal S2 Abdomen: Normal Bowel Sounds, Soft, No Tenderness Extremities: 3+ LE edema b/l Vascular: 2+ radial pulses Current Medications: Current Medications Sig/Arsalan Start time Last Medication Dose Route Stop Time Status Admin Acetaminophen 1,000 MG Q6P PRN 09/19 0345 AC N/A 1 UNIT IV Acetaminophen 650 MG Q8P PRN 09/19 0245 AC PO Acetaminophen 0 .STK-MED ONE 09/19 0154 DC IV Acetaminophen 1,000 MG ONCE ONE 09/19 0145 DC 09/19 N/A 1 UNIT IV 09/19 0159 0153 Aspirin Buffered 81 MG QAM 09/19 1000 AC 09/19 PO 0833 Atorvastatin Calcium 40 MG 1700 09/19 1700 AC 09/19 PO 1634 Cefazolin Sodium 1,000 MG IQ8 09/19 0800 AC 09/19 IV 1634 Enoxaparin Sodium 40 MG DAILY 09/19 1000 AC 09/19 SC 0833 Ezetimibe 10 MG QPM 09/19 2200 AC 09/19 PO 2059 Famotidine 40 MG DAILY 09/19 1000 AC 09/19 PO 0832 Furosemide 80 MG DAILY 09/19 1000 AC 09/19 PO 0833 Hydrocodone Bitart/ 1 TAB DAILY PRN 09/19 1045 CAN Acetaminophen PO Hydrocodone Bitart/ 1 TAB Q6P PRN 09/19 0330 AC 09/19 Acetaminophen PO 1405 Levothyroxine Sodium 0.05 MG DAILY AC 09/19 0700 AC 09/19 PO 0610 Lisinopril 5 MG DAILY 09/19 1500 DC PO Metolazone 2.5 MG DAILY 09/19 1000 AC 09/19 PO 0831 Metoprolol Tartrate 50 MG BID 09/19 1000 AC 09/19 PO 2100 Morphine Sulfate 2 MG ONCE ONE 09/19 1030 DC 09/19 IV 09/19 1031 1038 Phenytoin 200 MG BID 09/19 1000 AC 09/19 PO 2100 Potassium Chloride 40 MEQ DAILY 09/19 1000 AC 09/19 PO 0832 Potassium Chloride 40 MEQ ONCE ONE 09/19 0945 DC 09/19 PO 09/19 0946 1036 Prednisone 20 MG BID 09/19 1000 AC 09/19 PO 2059 Sodium Chloride 1,000 ML Q10H 09/19 0315 DC 09/19 IV 09/19 1314 0400 Sodium Chloride 1,000 ML BOLUS ONE 09/18 2300 DC 09/18 IV 09/18 2359 2336 Spironolactone 50 MG DAILY 09/19 1000 AC 09/19 PO 0831 Trimethoprim/ 1 TAB QAM 09/19 1000 AC 09/19 Sulfamethoxazole PO 09/20 0959 0833 Last 24 Hrs of Lab/Jeyson Results Last 24 Hrs of Labs/Mics: Laboratory Tests 09/19/17 1000: Urine Color YEL, Urine Clarity HAZY H, Urine pH 6.0, Ur Specific [place] 1.025, Urine Protein >=300 H, Urine Ketones NEG, Urine Nitrite NEG, Urine Bilirubin NEG, Urine Urobilinogen 0.2, Ur Leukocyte Esterase NEG, Ur Microscopic SEDIMENT EXAMINED, Urine RBC RARE, Urine WBC 3-5 H, Ur Epithelial Cells FEW, Micro UA Comment BUDDING YEAST H, Urine Hemoglobin TRACE-INTACT, Urine Glucose NEG 09/19/17808: Anion Gap 8, Estimated GFR > 60, BUN/Creatinine Ratio 31.3 H, CBC w Diff MAN DIFF ORDERED, RBC 3.40 L, MCV 99.4 H, MCH 35.2 H, MCHC 35.4, RDW 13.7, MPV 7.3 L, Gran % 89.8 H, Lymphocytes % 8.5 L, Monocytes % 1.5 L, Eosinophils % 0.1, Basophils % 0.1, Absolute Granulocytes 12.8 H, Segmented Neutrophils 77 H , Band Neutrophils 12 H, Absolute Lymphocytes 1.2, Lymphocytes 8 L, Monocytes 3, Absolute Monocytes 0.2, Absolute Eosinophils 0, Absolute Basophils 0, Normocytic RBCs VERIFIED, Normochromic RBCs VERIFIED Microbiology 09/19 808 BLOOD: Blood Culture - RECD 09/19 114 NASOPHARYN: Influenza Virus A & B Rapid Smear - COMP Assessment/Plan Assessment: A: 76-year-old female with past medical history of hypertension, hyperlipidemia, peripheral vascular disease, seizure disorder, chronic lower extremity lymphedema, nephrotic syndrome (renal biopsy shows FSGS) on steroids and chronic lower back pain presenting for swelling, pain and redness of right lower extremity found to have cellulitis of the RLE #Nonpurulent right lower extremity cellulitis WBC 18.5 4 bands -> 14.3 w/ 12 bands D-Dimer 217 Bcx negative thus far Venous doppler negative for DVT Arterial doppler: some peripheral vascular disease on RLE -Continue IV cefazolin Q8 -consider vascular for RLE PVD, however most likely cellutlitis -If patient becomes hypotensive consider IV steroids (stress dose) -f/u wound consult #Chronic moderate hyponatremia Na 129 -at baseline continue to monitor -1200ml fluid restriction per nephro -Zaroxolyn likely the bigger culprit with hyponatremia would continue for now but if sodium falls could hold this per nephro #History of nephrotic syndrome -f/u 24 hr urine - f/u microalbumin/cr ratio - start lisinopril 5mg and titrate up per neprho AFTER 24 hr urine collection -Continue home dose of PO prednisone (20 BID) -Continue Bactrim for PCP prophylaxis in context of chronic steroid use -If blood pressure drops consider IV steroid stress dose #Chronic lower extremity lymhedema -Leg elevation -continue Lasix 80 mg, metolazone 2.5 mg, spironolactone 50 mg #Chronic medical conditions: hyperlipidemia, GERD, HTN, hypothyroid, seizures and chronic back pain -continue Lipitor, Zetia, Pepcid, metoprolol and Vicodin, phenytoin, aspirin, levothyroxine #FULL CODE #lovenox Problem List: 1. Cellulitis 2. Hyponatremia 3. Nephrotic syndrome Pain Ratin Pain Location: RLE back Pain Goal: Pain 4 or less Pain Plan: pain pathway Tomorrow's Labs & Rationales: cbc bep Eneida Mina 09/19/17 1158: Attending MD Review Statement Attending Statement Attending MD Statement: examined this patient, discuss w/resident/PA/ACCOUNTING POLICY CONSULTANT, agreed w/resident/PA/ACCOUNTING POLICY CONSULTANT, discussed with family, reviewed EMR data (avail), discussed with nursing, discussed with case mgmt, reviewed images, amended to note Attending Assessment/Plan: 76 yo F with h/o HTN, PVD, chronic lymphedema, nephrotic syndrome (renal biopsy shows FSGS) on steroids, chronic back pain, seizure disorder, nonobstructive CAD , is here for evaluation of right lower extremity redness, tender , warmth likely cellulitis. (Also had vascular procedure) Patient seen/examined bedside. She c/o right lower extremity pain, USG with no evidence of dvt. redness+, tender+, warmth+. Assessment and plan: 1. Right lower extremity cellulitis with mild improvement. 2. Sepsis 3. Chronic lymphedema 4. Nephrotic syndrome on chronic steroids 5. Chronic back pain on opiates 6. Chronic hyponatremia - Elevation of leg. - Blood cultures x 2 f/u. - IV cefazolin - Wound consult f/u. - Consider Vascular consult. - Pain management with tylenol and vicodin. - continue outpatient prednisone. - Nephro inform about admission. DVT ppx Hep SC. Full code. Plan of care d.wed patient/ bedside.
[2017-09-19 08:48] LABS: ABSOLUTE BASOPHIL COUNT 0 /CUMM (0.0-0.2); ABSOLUTE EOSINOPHIL COUNT 0 /CUMM (0.0-0.7); ABSOLUTE GRANULOCYTE CT 12.8 /CUMM (1.4-6.5); ABSOLUTE LYMPH COUNT 1.2 /CUMM (1.2-3.4); ABSOLUTE MONOCYTE COUNT 0.2 /CUMM (0.10-0.60); BASOPHIL % 0.1 % (0.0-2.0); EOSINOPHIL % 0.1 % (0-5); GRANULOCYTE % 89.8 % (42.2-75.2); MEAN CORPUSCULAR HGB 35.2 PG (27.0-31.0); MEAN CORPUSCULAR HGB CONC 35.4 G/DL (33.0-37.0); MEAN CORPUSCULAR VOLUME 99.4 FL (81.0-99.0); MEAN PLATELET VOLUME 7.3 FL (7.4-10.4); PLATELET COUNT 312 /CUMM (130-400); RBC DISTRIBUTION WIDTH 13.7 % (11.5-14.5); WHITE BLOOD CELL COUNT 14.3 /CUMM (4.8-10.8)
--- NOTE | 2017-09-19 09:35 | ULTRASOUND REPORT ---
EXAMINATION: US TRIPLEX LOWER EXTREMITY, RIGHT CLINICAL INFORMATION: Swollen right lower extremity COMPARISON: None TECHNIQUE: Color-flow triplex imaging with spectral analysis and compression Doppler were performed on the lower extremity. FINDINGS: Respiratory variation, normal compression and augmented flow are noted throughout the lower extremity. The visualized common femoral vein, superficial femoral vein, profunda femoral vein, popliteal vein and midcalf peroneal and posterior tibial venous segments show no evidence of deep venous thrombosis. There is no Kwon's cyst. IMPRESSION: Normal triplex scan without evidence of deep venous thrombosis involving the lower extremity.
[2017-09-19 10:26] LABS: HEMATOCRIT 33.8 % (37-47)
--- NOTE | 2017-09-19 12:06 | Cons- Nephrology ---
General Information and HPI Consulting Request Date of Consult: 09/19/17 Requested By: Leopoldo FONTENOT,Eneida History of Present Illness: Ms. Curiel is a 76 yo F followed by with biopsy proven FSGS. She had 20 grams of proteinuria last fall and was started on prednisone and lasix. Despite this proteinuria has been persistent and she is to be transitioned to tacrolimus (hasn't started yet) while prednisone is being tapered She was admitted with cellulitis and a sodium of 129. I am asked to see her for this. Allergies/Medications Allergies: Coded Allergies: naproxen (Intermediate, RASH, ABD PAIN 03/31/17) tramadol (Intermediate, HEART PALPATATIONS 09/18/17) Penicillins (Mild, RASH 03/31/17) amoxapine (Mild, RASH 03/31/17) duloxetine (From CYMBALTA) (Mild, BLURRY VISION 09/18/17) gabapentin (Mild, BLURRY VISION 09/18/17) pregabalin (From LYRICA) (Mild, BLURRY VISION 09/18/17) amoxicillin (UNKNOWN PER PT EITHER HEART PALPITATIONS OR RASH 04/07/17) PER ORDER SHEET OF 02/18/17 (SJS) ibuprofen (HEART RACING 03/31/17) Home Med List: Acetaminophen (Tylenol Extra Strength) 500 MG TABLET 2 TAB PO PRN PAIN ( Reported) Ascorbic Acid (Vitamin C) 1,000 MG TABLET 2,000 MG PO 1200 SUPPLEMENT ( Reported) Aspirin (Ecotrin*) 81 MG TABLET.DR 1 TAB PO QAM HEART/BLOOD (Reported) Betamethasone Dipropionate 0.05 % CREAM..G. 1 FLETCHER TOP BID LEG RASH (Reported) apply to affected area(s) Bisacodyl (Dulcolax) 5 MG TABLET.DR 1 TAB PO QPM GI (Reported) Bran/Gum/Fib/Meredith/Psyl/Kelp/Pec (Fiber 6 Tablet) (Unknown Strength) TABLET ( Unknown Dose) PO QAM OAT BRAN 1000MG SUPPLEMENT (Reported) Cholecalciferol (Vitamin D3) (Vitamin D-3) 2,000 UNIT TABLET 1 TAB PO 1200 VITAMIN SUPPORT (Reported) Cyanocobalamin (Vitamin B-12) (B-12) 500 MCG TABLET 1 TAB PO 1200 VITAMIN SUPPORT (Reported) Ezetimibe (Zetia) 10 MG TABLET 1 TAB PO QPM CHOLESTEROL (Reported) Famotidine (Heartburn Prevention) 20 MG TABLET 2 TAB PO BID GI ANTACID ( Reported) Furosemide (Lasix) 80 MG TABLET 1 TAB PO DAILY Water pill . Glucosam HCl/Chondro Ulloa A/C/Mn (Glucosamine-Chondroitin Cap) 1 EACH CAPSULE 1 CAP PO 1200 SUPPLEMENT (Reported) Hydrocodone/Acetaminophen (Vicodin 5-300 MG Tablet) 5 MG-300 MG TABLET 1 TAB PO AD PRN PAIN (Reported) Levocetirizine Dihydrochloride 5 MG TABLET 1 TAB PO QPM ALLERGIES (Reported) Levothyroxine Sodium 50 MCG TABLET 1 TAB PO DAILY AC THYROID (Reported) Metolazone 2.5 MG TABLET 1 TAB PO DAILY WATER PILL (Reported) Metoprolol Tartrate (Lopressor) 50 MG TABLET 1 TAB PO BID HTN (Reported) Mometasone Furoate (Nasonex) 50 MCG SPRAY.PUMP 1 SPRAY NASB DAILY PRN ALLERGIES (Reported) Multivit-Min/FA/Lycopen/Lutein (Centrum Silver Tablet) 0.4 MG-300 MCG-250 MCG TABLET 1 TAB PO 1200 VITAMIN SUPPORT (Reported) [place]-3 Fatty Acids/Fish Oil (Fish Oil 1,000 MG Softgel) 1 EACH CAPSULE 2 CAP PO 1200 SUPLEMENT (Reported) Phenytoin (Dilantin) 100 MG CAPSULE 2 CAP PO BID SEIZURES (Reported) Potassium Chloride (K-Tab ER) 20 MEQ TABLET.ER 2 TAB PO DAILY Potassium supplement . Prednisone 20 MG TABLET 1 TAB PO BID NEPHROTIC SYNDROME (Reported) Rosuvastatin Calcium (Crestor) 40 MG TABLET 1 TAB PO QPM CHOLESTEROL ( Reported) Spironolactone 50 MG TABLET 1 TAB PO DAILY BP (Reported) Sulfamethoxazole/Trimethoprim (Bactrim 400-80 MG Tablet) 400 MG-80 MG TABLET 1 TAB PO QAM PROPHYLAXIS (Reported) Tizanidine HCl (Zanaflex) 4 MG CAPSULE 1 CAP PO DAILY MUSCLE RELAXER ( Reported) Ubidecarenone (Co Q-10) 200 MG CAPSULE 1 CAP PO 1200 SUPPLEMENT (Reported) Current Medications: Current Medications Sig/Arsalan Start time Last Medication Dose Route Stop Time Status Admin Acetaminophen 1,000 MG Q6P PRN 09/19 0345 AC N/A 1 UNIT IV Acetaminophen 650 MG Q8P PRN 09/19 0245 AC PO Acetaminophen 0 .STK-MED ONE 09/19 0154 DC IV Acetaminophen 1,000 MG ONCE ONE 09/19 0145 DC 09/19 N/A 1 UNIT IV 09/19 0159 0153 Aspirin Buffered 81 MG QAM 09/19 1000 AC 09/19 PO 0833 Atorvastatin Calcium 40 MG 1700 09/19 1700 AC PO Cefazolin Sodium 1,000 MG IQ8 09/19 0800 AC 09/19 IV 0831 Cefazolin Sodium 0 .STK-MED ONE 09/18 2250 DC .ROUTE Cefazolin Sodium 1,000 MG ONCE ONE 09/18 2145 DC 09/18 IV 09/18 2146 2336 Enoxaparin Sodium 40 MG DAILY 09/19 1000 AC 09/19 SC 0833 Ezetimibe 10 MG QPM 09/19 2200 AC PO Famotidine 40 MG DAILY 09/19 1000 AC 09/19 PO 0832 Furosemide 80 MG DAILY 09/19 1000 AC 09/19 PO 0833 Hydrocodone Bitart/ 1 TAB DAILY PRN 09/19 1045 CAN Acetaminophen PO Hydrocodone Bitart/ 1 TAB Q6P PRN 09/19 0330 AC Acetaminophen PO Levothyroxine Sodium 0.05 MG DAILY AC 09/19 0700 AC 09/19 PO 0610 Metolazone 2.5 MG DAILY 09/19 1000 AC 09/19 PO 0831 Metoprolol Tartrate 50 MG BID 09/19 1000 AC 09/19 PO 0833 Morphine Sulfate 2 MG ONCE ONE 09/19 1030 DC 09/19 IV 09/19 1031 1038 Phenytoin 200 MG BID 09/19 1000 AC 09/19 PO 0833 Potassium Chloride 40 MEQ DAILY 09/19 1000 AC 09/19 PO 0832 Potassium Chloride 40 MEQ ONCE ONE 09/19 0945 DC 09/19 PO 09/19 0946 1036 Prednisone 20 MG BID 09/19 1000 AC 09/19 PO 0832 Sodium Chloride 1,000 ML Q10H 09/19 0315 AC 09/19 IV 09/19 1314 0400 Sodium Chloride 1,000 ML BOLUS ONE 09/18 2300 DC 09/18 IV 09/18 2359 2336 Spironolactone 50 MG DAILY 09/19 1000 AC 09/19 PO 0831 Trimethoprim/ 1 TAB QAM 09/19 1000 AC 09/19 Sulfamethoxazole PO 09/20 0959 0833 Past History Travel History Traveled to [place] past 21 day No Medical History Blood Transfusion Hx: No Neurological: seizure EENT: allergies, hearing loss Cardiovascular: hypertension, hyperlipidemia, CLOGGED HEART ARTERIES Respiratory: NONE Gastrointestinal: NONE Hepatic: NONE Renal: NONE Musculoskeletal: ARTHRITIS LYMPHeDEMA Psychiatric: PANIC ATTACK Endocrine: NONE Blood Disorders: NONE Cancer(s): NONE 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 Home Who Do You Live With? spouse Services at Home: None Primary Language: [place] Smoking Status: Never Smoked ETOH Use: denies use Illicit Drug Use: denies illicit drug use Living Will? yes Power of Cable Repairer/HCP? yes Name of POA/HCP: Nitesh Curiel Functional Ability ADLs Independent: dressing, eating, toileting, bathing. Ambulation: independent IADLs Independent: shopping, housework, finances, food prep, telephone, transportation , medication admin. Exam & Diagnostic Data Vital Signs and I&O Pleasant F NAD 110/60 111 98.6 Skin cellulitiss erythema RLE Eyes anicteric ENT moist Lungs clear Cor RRR Abd soft Ext 2+edema DATA Results Pertinent Lab Results: 129/ 90 / 25 / 3.1 / 31 / 0.8\ Assessment/Plan Assessment/Recommendations Assessment: Nephrotic syndrome with 15 g protein in May and hyponatremia. Hyponatremia likely related to duretic use with excess water intake (compared to solute). Patient is currently on NS and whereas it will help correct the sodium it will worsen edema. Sodium is okay where it is and should be managed predominantly with water restriction. Rec: 1200 cc fluid restriction Continue lasix Zaroxolyn likely the bigger culprit with hyponatremia would continue for now but if sodium falls could hold this. Would repeat formal 24 hr urine for protein/creatinine to see where she is now with her NS Would initiate ACEI as this will lower proteinuria (start after 24 hr urine done - could start with 5 mg lisinopril and titrate up. Thanks will follow Philippe Márquez mD Recommendations: .
[2017-09-19 14:08] VITALS: BP 112/78
--- NOTE | 2017-09-19 16:35 | Cons- Wound Care ---
General Information and HPI Consulting Request Date of Consult: 09/19/17 Requested By: Leopoldo FONTENOT,Eneida Reason for Consult: Right lower extremity cellulitis History of Present Illness: Patient is 76-year-old woman with chronic lymphedema likely status post knee surgery on prednisone for woman of atherosclerosis and nephrotic syndrome is admitted with acute cellulitis of the right lower extremity. Patient sustained trauma to her right lower extremity with small ulcer. She applied an Galindo wrap and subsequently noticed diffuse erythema consistent with soft tissue skin infection. She denies history of peripheral vascular disease. She does use of Velcro compression wrap as well as a lymphedema pump at home. Allergies/Medications Allergies: Coded Allergies: naproxen (Intermediate, RASH, ABD PAIN 03/31/17) tramadol (Intermediate, HEART PALPATATIONS 09/18/17) Penicillins (Mild, RASH 03/31/17) amoxapine (Mild, RASH 03/31/17) duloxetine (From CYMBALTA) (Mild, BLURRY VISION 09/18/17) gabapentin (Mild, BLURRY VISION 09/18/17) pregabalin (From LYRICA) (Mild, BLURRY VISION 09/18/17) amoxicillin (UNKNOWN PER PT EITHER HEART PALPITATIONS OR RASH 04/07/17) PER ORDER SHEET OF 02/18/17 (SJS) ibuprofen (HEART RACING 03/31/17) Home Med List: Acetaminophen (Tylenol Extra Strength) 500 MG TABLET 2 TAB PO PRN PAIN ( Reported) Ascorbic Acid (Vitamin C) 1,000 MG TABLET 2,000 MG PO 1200 SUPPLEMENT ( Reported) Aspirin (Ecotrin*) 81 MG TABLET.DR 1 TAB PO QAM HEART/BLOOD (Reported) Betamethasone Dipropionate 0.05 % CREAM..G. 1 FLETCHER TOP BID LEG RASH (Reported) apply to affected area(s) Bisacodyl (Dulcolax) 5 MG TABLET.DR 1 TAB PO QPM GI (Reported) Bran/Gum/Fib/Meredith/Psyl/Kelp/Pec (Fiber 6 Tablet) (Unknown Strength) TABLET ( Unknown Dose) PO QAM OAT BRAN 1000MG SUPPLEMENT (Reported) Cholecalciferol (Vitamin D3) (Vitamin D-3) 2,000 UNIT TABLET 1 TAB PO 1200 VITAMIN SUPPORT (Reported) Cyanocobalamin (Vitamin B-12) (B-12) 500 MCG TABLET 1 TAB PO 1200 VITAMIN SUPPORT (Reported) Ezetimibe (Zetia) 10 MG TABLET 1 TAB PO QPM CHOLESTEROL (Reported) Famotidine (Heartburn Prevention) 20 MG TABLET 2 TAB PO BID GI ANTACID ( Reported) Furosemide (Lasix) 80 MG TABLET 1 TAB PO DAILY Water pill . Glucosam HCl/Chondro Ulloa A/C/Mn (Glucosamine-Chondroitin Cap) 1 EACH CAPSULE 1 CAP PO 1200 SUPPLEMENT (Reported) Hydrocodone/Acetaminophen (Vicodin 5-300 MG Tablet) 5 MG-300 MG TABLET 1 TAB PO AD PRN PAIN (Reported) Levocetirizine Dihydrochloride 5 MG TABLET 1 TAB PO QPM ALLERGIES (Reported) Levothyroxine Sodium 50 MCG TABLET 1 TAB PO DAILY AC THYROID (Reported) Metolazone 2.5 MG TABLET 1 TAB PO DAILY WATER PILL (Reported) Metoprolol Tartrate (Lopressor) 50 MG TABLET 1 TAB PO BID HTN (Reported) Mometasone Furoate (Nasonex) 50 MCG SPRAY.PUMP 1 SPRAY NASB DAILY PRN ALLERGIES (Reported) Multivit-Min/FA/Lycopen/Lutein (Centrum Silver Tablet) 0.4 MG-300 MCG-250 MCG TABLET 1 TAB PO 1200 VITAMIN SUPPORT (Reported) [place]-3 Fatty Acids/Fish Oil (Fish Oil 1,000 MG Softgel) 1 EACH CAPSULE 2 CAP PO 1200 SUPLEMENT (Reported) Phenytoin (Dilantin) 100 MG CAPSULE 2 CAP PO BID SEIZURES (Reported) Potassium Chloride (K-Tab ER) 20 MEQ TABLET.ER 2 TAB PO DAILY Potassium supplement . Prednisone 20 MG TABLET 1 TAB PO BID NEPHROTIC SYNDROME (Reported) Rosuvastatin Calcium (Crestor) 40 MG TABLET 1 TAB PO QPM CHOLESTEROL ( Reported) Spironolactone 50 MG TABLET 1 TAB PO DAILY BP (Reported) Sulfamethoxazole/Trimethoprim (Bactrim 400-80 MG Tablet) 400 MG-80 MG TABLET 1 TAB PO QAM PROPHYLAXIS (Reported) Tizanidine HCl (Zanaflex) 4 MG CAPSULE 1 CAP PO DAILY MUSCLE RELAXER ( Reported) Ubidecarenone (Co Q-10) 200 MG CAPSULE 1 CAP PO 1200 SUPPLEMENT (Reported) Past History Travel History Traveled to [place] past 21 day No Medical History Blood Transfusion Hx: No Neurological: seizure EENT: allergies, hearing loss Cardiovascular: hypertension, hyperlipidemia, CLOGGED HEART ARTERIES Respiratory: NONE Gastrointestinal: NONE Hepatic: NONE Renal: NONE Musculoskeletal: ARTHRITIS LYMPHeDEMA Psychiatric: PANIC ATTACK Endocrine: NONE Blood Disorders: NONE Cancer(s): 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 Home Who Do You Live With? spouse Services at Home: None Primary Language: Bangladeshi Smoking Status: Never Smoked ETOH Use: denies use Illicit Drug Use: denies illicit drug use Living Will? yes Power of Soap Drier Tender/HCP? yes Name of POA/HCP: Nitesh Curiel Functional Ability ADLs Independent: dressing, eating, toileting, bathing. Ambulation: independent IADLs Independent: shopping, housework, finances, food prep, telephone, transportation , medication admin. Exam & Diagnostic Data Vital Signs and I&O Vital Signs Result Date Time Pulse Ox 93 09/19 1408 B/P 112/78 09/19 1408 O2 Delivery Room Air 09/19 1408 Temp 98.0 09/19 1408 Pulse 100 09/19 1408 Resp 20 09/19 1408 Intake & Output 09/19 0000 09/18 1600 09/18 0800 Intake Total 0 Output Total Balance 0 Intake, Oral 0 Patient 155 lb Weight Weight Reported by Patient Measurement Method There is 2-3+ pitting edema of the right leg with extensive erythema from the foot to below the knee. Distal pulses are able to be palpated. There is a small ulcer over the lower lateral leg measuring approximately 1 x 0.5 cm with serous drainage. Duplex ultrasound was negative Assessment/Plan Impression/Plan: 76-year-old woman with chronic lymphedema is admitted with acute cellulitis after trauma to her right lower extremity. There is a small ulcer there which can be covered with Aquacel Ag. Most importantly is continued diuresis as renal function allows and maximal leg elevation. Complete course of antibiotics. Consult Acknowledgment - Thank you for your consult request.
--- NOTE | 2017-09-19 17:06 | ULTRASOUND REPORT ---
EXAMINATION: US ARTERIAL DOPPLER LOWER EXTREMITY, BILATERAL CLINICAL INFORMATION: Cellulitis with history of peripheral vascular disease and claudication. COMPARISON: None TECHNIQUE: Bilateral lower extremity duplex ultrasound was performed with velocity measurements and waveform analysis in the common femoral arteries, profunda femoris arteries, proximal mid and distal superficial femoral arteries, popliteal arteries and tibial vessels. This study was performed only at rest. FINDINGS: Velocities in cm/s and phasicity as well as the presence of plaque are reported below. RIGHT LEG: Common Femoral: 135 cm/s Profunda Femoris: 134 cm/s Proximal SFA: 181 cm/s Mid SFA: 140 cm/s Distal SFA: 139 cm/s Popliteal: 120 cm/s Anterior Tibial: 64 cm/s Posterior Tibial: 75 cm/s Dorsalis Pedis: 81 cm/s There are scattered areas of plaquing present. The common femoral artery demonstrates triphasic flow as does the profunda femoris artery. In the femoral artery, popliteal artery, posterior tibial artery and anterior tibial artery, monophasic flow is seen. Surprisingly, triphasic flow is seen in the dorsalis pedis which may be getting excellent collateral flow from a non-imaged peroneal artery. LEFT LEG: Common Femoral: 106 cm/s Profunda Femoris: 85 cm/s Proximal SFA: 94 cm/s Mid SFA: 68 cm/s Distal SFA: 70 cm/s Popliteal: 74 cm/s Anterior Tibial: 66 cm/s Posterior Tibial: 62 cm/s Dorsalis Pedis: 69 cm/s Scattered areas of plaque are seen. Multiphasic flow is noted throughout the left lower extremity. IMPRESSION: There is evidence of some peripheral vascular disease on the right as described above. The left side looks unremarkable. If clinically indicated, CT angiography may be of value to better define the anatomic location of disease.
[2017-09-20 06:46] VITALS: BP 116/52
--- NOTE | 2017-09-20 07:44 | PN- Housestaff ---
BarryTati Del Alberto 09/20/17 0739: Subjective Follow-up For: Right lower extremity cellulitis Sepsis Chronic lymphedema Nephrotic syndrome on chronic steroids Chronic back pain on opiates Chronic hyponatremia Subjective: No overnight event. Pt was sleeping when I entered the room. Breathing comfortbly under RA. Review of Systems Constitutional: Reports: see HPI. Objective Last 24 Hrs of Vital Signs/I&O Vital Signs Date Time Temp Pulse Resp B/P B/P Pulse O2 O2 Flow FiO2 Mean Ox Delivery Rate 09/20 0646 98.2 106 20 116/52 92 Room Air 09/19 2355 99.2 90 18 94 Room Air 09/19 2100 100 120/60 09/19 1408 98.0 100 20 112/78 93 Room Air 09/19 0833 110/60 Intake & Output 09/20 0800 09/20 0000 09/19 1600 Intake Total 400 582 4950 Output Total 350 300 600 Balance -250 300 450 Intake, IV 800 Intake, Oral 100 600 250 Output, Urine 350 300 600 Physical Exam General Appearance: Patient was sleeping Cardiovascular: Regular Rate Lungs: Clear to Auscultation, Normal Air Movement Extremities: RLE cellulitis under ABx treatment, with darkened skin color and retracted from marked border Current Medications: Current Medications Sig/Arsalan Start time Last Medication Dose Route Stop Time Status Admin Acetaminophen 1,000 MG Q6P PRN 09/19 0345 AC N/A 1 UNIT IV Acetaminophen 650 MG Q8P PRN 09/19 0245 AC PO Aspirin Buffered 81 MG QAM 09/19 1000 AC 09/19 PO 0833 Atorvastatin Calcium 40 MG 1700 09/19 1700 AC 09/19 PO 1634 Cefazolin Sodium 1,000 MG IQ8 09/19 0800 AC 09/19 IV 2341 Enoxaparin Sodium 40 MG DAILY 09/19 1000 AC 09/19 SC 0833 Ezetimibe 10 MG QPM 09/19 2200 AC 09/19 PO 2059 Famotidine 40 MG DAILY 09/19 1000 AC 09/19 PO 0832 Furosemide 80 MG DAILY 09/19 1000 AC 09/19 PO 0833 Hydrocodone Bitart/ 1 TAB DAILY PRN 09/19 1045 CAN Acetaminophen PO Hydrocodone Bitart/ 1 TAB Q6P PRN 09/19 0330 AC 09/19 Acetaminophen PO 1405 Levothyroxine Sodium 0.05 MG DAILY AC 09/19 0700 AC 09/20 PO 0551 Lisinopril 5 MG DAILY 09/19 1500 DC PO Metolazone 2.5 MG DAILY 09/19 1000 AC 09/19 PO 0831 Metoprolol Tartrate 50 MG BID 09/19 1000 AC 09/19 PO 2100 Morphine Sulfate 2 MG ONCE ONE 09/19 1030 DC 09/19 IV 09/19 1031 1038 Phenytoin 200 MG BID 09/19 1000 AC 09/19 PO 2100 Potassium Chloride 40 MEQ DAILY 09/19 1000 AC 09/19 PO 0832 Potassium Chloride 40 MEQ ONCE ONE 09/19 0945 DC 09/19 PO 09/19 0946 1036 Prednisone 20 MG BID 09/19 1000 AC 09/19 PO 2059 Sodium Chloride 1,000 ML Q10H 09/19 0315 DC 09/19 IV 09/19 1314 0400 Spironolactone 50 MG DAILY 09/19 1000 AC 09/19 PO 0831 Trimethoprim/ 1 TAB QAM 09/19 1000 AC 09/19 Sulfamethoxazole PO 09/20 0959 0833 Last 24 Hrs of Lab/Jeyson Results Last 24 Hrs of Labs/Mics: Laboratory Tests 09/19/17 1000: Urine Color YEL, Urine Clarity HAZY H, Urine pH 6.0, Ur Specific [place] 1.025, Urine Protein >=300 H, Urine Ketones NEG, Urine Nitrite NEG, Urine Bilirubin NEG, Urine Urobilinogen 0.2, Ur Leukocyte Esterase NEG, Ur Microscopic SEDIMENT EXAMINED, Urine RBC RARE, Urine WBC 3-5 H, Ur Epithelial Cells FEW, Micro UA Comment [place] H, Urine Hemoglobin TRACE-INTACT, Urine Glucose NEG 09/19/17 0809: Anion Gap 8, Estimated GFR > 60, BUN/Creatinine Ratio 31.3 H, CBC w Diff MAN DIFF ORDERED, RBC 3.40 L, MCV 99.4 H, MCH 35.2 H, MCHC 35.4, RDW 13.7, MPV 7.3 L, Gran % 89.8 H, Lymphocytes % 8.5 L, Monocytes % 1.5 L, Eosinophils % 0.1, Basophils % 0.1, Absolute Granulocytes 12.8 H, Segmented Neutrophils 77 H , Band Neutrophils 12 H, Absolute Lymphocytes 1.2, Lymphocytes 8 L, Monocytes 3, Absolute Monocytes 0.2, Absolute Eosinophils 0, Absolute Basophils 0, Normocytic RBCs VERIFIED, Normochromic RBCs VERIFIED Microbiology 09/19 808 BLOOD: Blood Culture - RECD Assessment/Plan Assessment: Ms. Curiel is a 76-year-old female with past medical history of hypertension, hyperlipidemia, peripheral vascular disease, seizure disorder, chronic lower extremity lymphedema, nephrotic syndrome (renal biopsy shows FSGS) on steroids and chronic lower back pain presenting for swelling, pain and redness of right lower extremity found to have cellulitis of the RLE #Nonpurulent right lower extremity cellulitis WBC 18.5 4 bands -> 14.3 w/ 12 bands -> 16.3 w/ no bands on latest lab. - Sepsis w/ >10% band (within 24hrs of admission), leukocytosis, and tachycardia >100 on presentation, however resolved with treatment now. D-Dimer 217 Bcx negative thus far Venous doppler negative for DVT Arterial doppler: some peripheral vascular disease on RLE -Continue IV cefazolin Q8 1g, currently day 2. Will complete 2 week course of treatment. - Improved from yesterday with darken color and retraction from previously marked border. - Cultures negative so far. -consider vascular for RLE PVD, although arteries were patent on U/S. - Pending Vascular consult. -If patient becomes hypotensive consider IV steroids (stress dose) -f/u wound consult #Chronic moderate hyponatremia Na 129 -at baseline continue to monitor -1200ml fluid restriction per nephro -Zaroxolyn likely the bigger culprit with hyponatremia would continue for now but if sodium falls could hold this per nephro #History of nephrotic syndrome - f/u 24 hr urine - f/u microalbumin/cr ratio - would start lisinopril 5mg and titrate up per neprho AFTER 24 hr urine collection - Continue home dose of PO prednisone (20 BID) - Continue Bactrim for PCP prophylaxis in context of chronic steroid use - If blood pressure drops consider IV steroid stress dose #Chronic lower extremity lymhedema - Leg elevation - continue Lasix 80 mg, metolazone 2.5 mg, spironolactone 50 mg #Chronic medical conditions: hyperlipidemia, GERD, HTN, hypothyroid, seizures and chronic back pain - continue Lipitor, Zetia, Pepcid, metoprolol and Vicodin, phenytoin, aspirin, levothyroxine #FULL CODE Heart Healthy Diet #lovenox Problem List: 1. Cellulitis 2. Leg edema 3. Nephrotic syndrome 4. Hyponatremia Pain Ratin Pain Location: Pt is sleeping Pain Goal: Remain pain free Pain Plan: see AP Tomorrow's Labs & Rationales: CBC/BEP Eneida Mina 09/20/17 1125: Attending MD Review Statement Attending Statement Attending MD Statement: examined this patient, discuss w/resident/PA/FURNACE BRAZER, agreed w/resident/PA/FURNACE BRAZER, discussed with family, reviewed EMR data (avail), discussed with nursing, discussed with case mgmt, reviewed images, amended to note Attending Assessment/Plan: 76 yo F with h/o HTN, PVD, chronic lymphedema, nephrotic syndrome (renal biopsy shows FSGS) on steroids, chronic back pain, seizure disorder, nonobstructive CAD , is here for evaluation of right lower extremity redness, tender , warmth likely cellulitis. (Also had vascular procedure) Patient seen/examined bedside. She c/o right lower extremity pain, USG with no evidence of dvt. redness+, tender+, warmth+ with slow improvement. Assessment and plan: 1. Right lower extremity cellulitis with mild improvement. 2. Sepsis 3. Chronic lymphedema 4. Nephrotic syndrome on chronic steroids 5. Chronic back pain on opiates 6. Chronic hyponatremia - Elevation of leg continue - Blood cultures x 2 f/u. - IV cefazolin - Wound recommendations followed - f/u Vascular consult. - Pain management with tylenol and vicodin. - continue outpatient prednisone. - Nephro f/u. Addition of chidi inhibitor as per nephro. DVT ppx Hep SC. Full code. Plan of care d.wed patient/ bedside.
--- NOTE | 2017-09-20 08:33 | PN- Wound Care ---
Subjective Subjective: Patient feels well without complaints Objective Vital Signs and I&Os Vital Signs Result Date Time B/P 120/60 09/20 0807 Pulse Ox 92 09/20 645 O2 Delivery Room Air 09/20 645 Temp 98.2 09/20 645 Pulse 106 09/20 0646 Resp 20 09/20 0646 Intake & Output 09/20 0000 09/19 1600 09/19 0800 Intake Total 600 1050 1520 Output Total 300 600 250 Balance 660 965 5992 Intake, IV 800 1400 Intake, Oral 600 250 120 Output, Urine 300 600 250 Patient 155 lb Weight The extensive right lower extremity remedy erythema appears to be receding. There are no open wounds or drainage. There is persistent edema Impression/Plan Impression/Plan Impression/Plan: 76-year-old woman with chronic lymphedema is admitted with acute cellulitis after trauma to her right lower extremity. There is a small ulcer there which can be covered with Aquacel Ag. Most importantly is continued diuresis as renal function allows and maximal leg elevation. Complete course of antibiotics. Patient appears to be responding to antibiotics. Patient's bed will be changed to facilitate more aggressive elevation. The original wound appears to have a small scab no further wound care appears necessary
[2017-09-20 09:20] LABS: ABSOLUTE BASOPHIL COUNT 0 /CUMM (0.0-0.2); ABSOLUTE EOSINOPHIL COUNT 0 /CUMM (0.0-0.7); ABSOLUTE GRANULOCYTE CT 14.2 /CUMM (1.4-6.5); ABSOLUTE LYMPH COUNT 1.2 /CUMM (1.2-3.4); ABSOLUTE MONOCYTE COUNT 0.9 /CUMM (0.10-0.60); BASOPHIL % 0.1 % (0.0-2.0); EOSINOPHIL % 0 % (0-5); HEMATOCRIT 32.5 % (37-47); MEAN CORPUSCULAR HGB 35.1 PG (27.0-31.0); MEAN CORPUSCULAR HGB CONC 34.8 G/DL (33.0-37.0); MEAN PLATELET VOLUME 7.7 FL (7.4-10.4); PLATELET COUNT 296 /CUMM (130-400); RBC DISTRIBUTION WIDTH 13.4 % (11.5-14.5); RED BLOOD CELL CT 3.22 /CUMM (4.20-5.40); WHITE BLOOD CELL COUNT 16.3 /CUMM (4.8-10.8)
[2017-09-20 14:28] VITALS: BP 102/50
--- NOTE | 2017-09-20 16:53 | Cons- Vascular Surgery ---
See Addendum General Information and HPI Consulting Request Date of Consult: 09/20/17 Requested By: Eneida Mina MD History of Present Illness: 76-year-old lady with history of hypertension, venous insufficiency, nephrotic syndrome on steroids, lymphedema and dyslipidemia was admitted with right leg swelling and pain and discoloration. She was diagnosed with right leg cellulitis and has been started on antibiotics. She does wear compression stockings and use his lymphedema pump at home. Vascular surgery was called regarding lots applied to the leg. Allergies/Medications Allergies: Coded Allergies: naproxen (Intermediate, RASH, ABD PAIN 03/31/17) tramadol (Intermediate, HEART PALPATATIONS 09/18/17) Penicillins (Mild, RASH 03/31/17) amoxapine (Mild, RASH 03/31/17) duloxetine (From CYMBALTA) (Mild, BLURRY VISION 09/18/17) gabapentin (Mild, BLURRY VISION 09/18/17) pregabalin (From LYRICA) (Mild, BLURRY VISION 09/18/17) amoxicillin (UNKNOWN PER PT EITHER HEART PALPITATIONS OR RASH 04/07/17) PER ORDER SHEET OF 02/18/17 (SJS) ibuprofen (HEART RACING 03/31/17) Home Med List: Acetaminophen (Tylenol Extra Strength) 500 MG TABLET 2 TAB PO PRN PAIN ( Reported) Ascorbic Acid (Vitamin C) 1,000 MG TABLET 2,000 MG PO 1200 SUPPLEMENT ( Reported) Aspirin (Ecotrin*) 81 MG TABLET.DR 1 TAB PO QAM HEART/BLOOD (Reported) Betamethasone Dipropionate 0.05 % CREAM..G. 1 FLETCHER TOP BID LEG RASH (Reported) apply to affected area(s) Bisacodyl (Dulcolax) 5 MG TABLET.DR 1 TAB PO QPM GI (Reported) Bran/Gum/Fib/Meredith/Psyl/Kelp/Pec (Fiber 6 Tablet) (Unknown Strength) TABLET ( Unknown Dose) PO QAM OAT BRAN 1000MG SUPPLEMENT (Reported) Cholecalciferol (Vitamin D3) (Vitamin D-3) 2,000 UNIT TABLET 1 TAB PO 1200 VITAMIN SUPPORT (Reported) Cyanocobalamin (Vitamin B-12) (B-12) 500 MCG TABLET 1 TAB PO 1200 VITAMIN SUPPORT (Reported) Ezetimibe (Zetia) 10 MG TABLET 1 TAB PO QPM CHOLESTEROL (Reported) Famotidine (Heartburn Prevention) 20 MG TABLET 2 TAB PO BID GI ANTACID ( Reported) Furosemide (Lasix) 80 MG TABLET 1 TAB PO DAILY Water pill . Glucosam HCl/Chondro [place]lloa A/C/Mn (Glucosamine-Chondroitin Cap) 1 EACH CAPSULE 1 CAP PO 1200 SUPPLEMENT (Reported) Hydrocodone/Acetaminophen (Vicodin 5-300 MG Tablet) 5 MG-300 MG TABLET 1 TAB PO AD PRN PAIN (Reported) Levocetirizine Dihydrochloride 5 MG TABLET 1 TAB PO QPM ALLERGIES (Reported) Levothyroxine Sodium 50 MCG TABLET 1 TAB PO DAILY AC THYROID (Reported) Metolazone 2.5 MG TABLET 1 TAB PO DAILY WATER PILL (Reported) Metoprolol Tartrate (Lopressor) 50 MG TABLET 1 TAB PO BID HTN (Reported) Mometasone Furoate (Nasonex) 50 MCG SPRAY.PUMP 1 SPRAY NASB DAILY PRN ALLERGIES (Reported) Multivit-Min/FA/Lycopen/Lutein (Centrum Silver Tablet) 0.4 MG-300 MCG-250 MCG TABLET 1 TAB PO 1200 VITAMIN SUPPORT (Reported) [place]-3 Fatty Acids/Fish Oil (Fish Oil 1,000 MG Softgel) 1 EACH CAPSULE 2 CAP PO 1200 SUPLEMENT (Reported) Phenytoin (Dilantin) 100 MG CAPSULE 2 CAP PO BID SEIZURES (Reported) Potassium Chloride (K-Tab ER) 20 MEQ TABLET.ER 2 TAB PO DAILY Potassium supplement . Prednisone 20 MG TABLET 1 TAB PO BID NEPHROTIC SYNDROME (Reported) Rosuvastatin Calcium (Crestor) 40 MG TABLET 1 TAB PO QPM CHOLESTEROL ( Reported) Spironolactone 50 MG TABLET 1 TAB PO DAILY BP (Reported) Sulfamethoxazole/Trimethoprim (Bactrim 400-80 MG Tablet) 400 MG-80 MG TABLET 1 TAB PO QAM PROPHYLAXIS (Reported) Tizanidine HCl (Zanaflex) 4 MG CAPSULE 1 CAP PO DAILY MUSCLE RELAXER ( Reported) Ubidecarenone (Co Q-10) 200 MG CAPSULE 1 CAP PO 1200 SUPPLEMENT (Reported) Past History Medical History Blood Transfusion Hx: No Neurological: seizure EENT: allergies, hearing loss Cardiovascular: hypertension, hyperlipidemia, CLOGGED HEART ARTERIES Respiratory: NONE Gastrointestinal: NONE Hepatic: NONE Renal: NONE Musculoskeletal: ARTHRITIS LYMPHeDEMA Psychiatric: PANIC ATTACK Endocrine: NONE Blood Disorders: NONE Cancer(s): NONE ASTROBIOLOGIST/Reproductive: NONE Surgical History Pertinent Surgical History: hip replacement, knee replacement Family History Relations & Conditions If Any: DAUGHTER MOTHER FH: breast cancer FATHER FH: Parkinson's disease Relation not specified for: FH: rheumatoid arthritis Psychosocial History Where Do You Live? Home Who Do You Live With? spouse Services at Home: None Primary Language: Tamazight Smoking Status: Never Smoked ETOH Use: denies use Illicit Drug Use: denies illicit drug use Living Will? yes Power of Workforce Management Analyst/HCP? yes Name of POA/HCP: Nitesh Curiel Functional Ability ADLs Independent: dressing, eating, toileting, bathing. Ambulation: independent IADLs Independent: shopping, housework, finances, food prep, telephone, transportation , medication admin. Review of Systems Review of Systems: She denies headache, dizziness, cough, palpitation, diarrhea or constipation Exam & Diagnostic Data Vital Signs and I&O Vital Signs Date Time Temp Pulse Resp B/P B/P Pulse O2 O2 Flow FiO2 Mean Ox Delivery Rate 09/20 1428 98.4 106 22 102/50 93 Room Air 09/20 0807 120/60 09/20 0646 98.2 106 20 116/52 92 Room Air 09/19 2355 99.2 90 18 94 Room Air 09/19 2100 100 120/60 Intake & Output 09/20 1600 09/20 0800 09/20 0000 09/19 1600 09/19 0700 09/19 0000 Intake Total 440 996 134 6393 1520 0 Output Total 900 350 300 600 250 Balance -460 -250 188 201 3717 0 Intake, IV 800 1400 Intake, Oral 440 100 600 250 120 0 Output, Urine 900 350 300 600 250 Patient 155 lb 155 lb Weight Weight Reported by Patient Measurement Method Physical Exam: Patient is alert and oriented 3 Lungs: Clear to auscultation bilaterally Heart: Regular rate and rhythm Abdomen: Soft, nontender nondistended Extremities: There is discoloration of right leg reddish purplish tinge. There are strongly palpable pedal pulses. Assessment/Plan Assessment/Plan 76-year-old lady with right leg cellulitis and palpable pedal pulses. I don't believe she has significant arterial disease. Venous duplex showed no evidence of DVT. Continue leg elevation and antibiotics. Vascular surgery interventions necessary at this time. Thank you for asking me to be involved in the care of this patient. Consult Acknowledgment - Thank you for your consult request. Attending MD Review Statement Attending Statement Attending MD Statement: examined this patient, discuss w/resident/PA/ASPHALT SCREED OPERATOR
[2017-09-20 22:42] VITALS: BP 124/62
[2017-09-21 06:53] VITALS: BP 124/70
--- NOTE | 2017-09-21 08:21 | PN- Wound Care ---
Subjective Subjective: Patient feels well without complaints Objective Vital Signs and I&Os Vital Signs Result Date Time Pulse Ox 95 09/21 652 B/P 124/70 09/21 652 O2 Delivery Room Air 09/21 652 Temp 97.6 09/21 652 Pulse 96 09/21 652 Resp 20 09/21 652 Intake & Output 09/21 0000 09/20 1600 09/20 0800 Intake Total 800 440 100 Output Total 900 350 Balance 800 -460 -250 Intake, Oral 800 440 100 Output, Urine 900 350 She remains afebrile the amount of erythema of the right lower extremity is dramatically improved with effective elevation and antibiotics. There is no open wound. Vascular evaluation reviewed Impression/Plan Impression/Plan Impression/Plan: 76-year-old woman with chronic lymphedema is admitted with acute cellulitis after trauma to her right lower extremity. Cellulitis appears dramatically improved. They are is no longer an open ulcer. Patient should be able to resume her routine lymphedema management treatment at discharge
[2017-09-21 08:58] LABS: ABSOLUTE BASOPHIL COUNT 0 /CUMM (0.0-0.2); ABSOLUTE EOSINOPHIL COUNT 0.1 /CUMM (0.0-0.7); ABSOLUTE GRANULOCYTE CT 13.6 /CUMM (1.4-6.5); ABSOLUTE LYMPH COUNT 1.7 /CUMM (1.2-3.4); BASOPHIL % 0.3 % (0.0-2.0); EOSINOPHIL % 0.3 % (0-5); GRANULOCYTE % 82.7 % (42.2-75.2); MEAN CORPUSCULAR HGB CONC 33.9 G/DL (33.0-37.0); MEAN CORPUSCULAR VOLUME 100.5 FL (81.0-99.0); MEAN PLATELET VOLUME 7.9 FL (7.4-10.4); PLATELET COUNT 327 /CUMM (130-400); RED BLOOD CELL CT 3.38 /CUMM (4.20-5.40); WHITE BLOOD CELL COUNT 16.4 /CUMM (4.8-10.8)
--- NOTE | 2017-09-21 12:11 | PN- Housestaff ---
Tati Reddy 09/21/17 1211: Subjective Follow-up For: Right lower extremity cellulitis Sepsis Chronic lymphedema Nephrotic syndrome on chronic steroids Chronic back pain on opiates Chronic hyponatremia Subjective: No overnight event. Patient got her legs elevated in bed and felt improved on pain and the look of her legs with less redness. No other specific complaint. Review of Systems Constitutional: Reports: see HPI. Objective Last 24 Hrs of Vital Signs/I&O Vital Signs Date Time Temp Pulse Resp B/P B/P Pulse O2 O2 Flow FiO2 Mean Ox Delivery Rate 09/21 0950 96 124/70 09/21 0913 96 124/70 09/21 0800 Room Air 09/21 0653 97.6 96 20 124/70 95 Room Air 09/20 2242 98.1 108 20 124/62 95 Room Air 09/20 2131 108 124/70 09/20 1428 98.4 106 22 102/50 93 Room Air Intake & Output 09/21 1600 09/21 0800 09/21 0000 Intake Total 100 800 Output Total 1000 900 Balance -1000 -800 800 Intake, Oral 100 800 Number 0 Bowel Movements Output, Urine 1000 900 Physical Exam General Appearance: Alert, Oriented X3, Cooperative, No Acute Distress Cardiovascular: Regular Rate Lungs: Clear to Auscultation, Normal Air Movement Abdomen: Normal Bowel Sounds, Soft, No Tenderness Neurological: Normal Speech Extremities: RLE cellulitis with retracted erythema and redness, very mild pain upon pressing on the RLE Current Medications: Current Medications Sig/Arsalan Start time Last Medication Dose Route Stop Time Status Admin Acetaminophen 1,000 MG Q6P PRN 09/19 0345 AC N/A 1 UNIT IV Acetaminophen 650 MG Q8P PRN 09/19 0245 AC PO Aspirin Buffered 81 MG QAM 09/19 1000 AC 09/21 PO 0912 Atorvastatin Calcium 40 MG 1700 09/19 1700 AC 09/20 PO 1635 Cefazolin Sodium 1,000 MG IQ8 09/19 0800 AC 09/21 IV 0911 Enoxaparin Sodium 40 MG DAILY 09/19 1000 AC 09/21 SC 0913 Ezetimibe 10 MG QPM 09/19 2200 AC 09/20 PO 2131 Famotidine 40 MG DAILY 09/19 1000 AC 09/21 PO 0912 Furosemide 80 MG DAILY 09/19 1000 AC 09/21 PO 0912 Hydrocodone Bitart/ 1 TAB Q6P PRN 09/19 0330 AC 09/19 Acetaminophen PO 1405 Levothyroxine Sodium 0.05 MG DAILY AC 09/19 0700 AC 09/21 PO 0547 Lisinopril 5 MG DAILY 09/21 1000 AC 09/21 PO 0950 Metolazone 2.5 MG DAILY 09/19 1000 AC 09/21 PO 0911 Metoprolol Tartrate 50 MG BID 09/19 1000 AC 09/21 PO 0913 Patient Medication 1 ED ONE ONE 09/21 1030 DC Teaching ED 09/21 1031 Phenytoin 200 MG BID 09/19 1000 AC 09/21 PO 0912 Potassium Chloride 40 MEQ DAILY 09/19 1000 AC 09/21 PO 0912 Prednisone 20 MG BID 09/19 1000 AC 09/21 PO 0913 Spironolactone 50 MG DAILY 09/19 1000 AC 09/21 PO 0911 Last 24 Hrs of Lab/Jeyson Results Last 24 Hrs of Labs/Mics: Laboratory Tests 09/21/17 0852: D-Dimer High Sensitivty 439 H 09/21/17 0740: Anion Gap 8, Estimated GFR > 60, BUN/Creatinine Ratio 28.3 H, CBC w Diff NO MAN DIFF REQ, RBC 3.38 L, MCV 100.5 H, MCH 34.0 H, MCHC 33.9, RDW 13.0, MPV 7.9, Gran % 82.7 H, Lymphocytes % 10.4 L, Monocytes % 6.3, Eosinophils % 0.3, Basophils % 0.3, Absolute Granulocytes 13.6 H, Absolute Lymphocytes 1.7, Absolute Monocytes 1.0 H, Absolute Eosinophils 0.1, Absolute Basophils 0 09/20/17 1853: Ur Random Creatinine 37.9, Urine Total Volume 1850 H, Urine Creatinine 0.7 L, Ur Total Protein 24 Hr 35819.5 H 09/20/17 1600: Ur Random Creatinine Cancelled, Urine Total Volume Cancelled, Urine Creatinine Cancelled Assessment/Plan Assessment: Ms. Curiel is a 76-year-old female with past medical history of hypertension, hyperlipidemia, peripheral vascular disease, seizure disorder, chronic lower extremity lymphedema, nephrotic syndrome (renal biopsy shows FSGS) on steroids and chronic lower back pain presenting for swelling, pain and redness of right lower extremity found to have cellulitis of the RLE #Nonpurulent right lower extremity cellulitis, resolving WBC 18.5 4 bands -> 14.3 w/ 12 bands -> 16.3 w/ no bands on latest lab. - Sepsis w/ >10% band (within 24hrs of admission), leukocytosis, and tachycardia >100 on presentation, however resolved with treatment now. D-Dimer 217 -> 439 Bcx negative thus far Venous doppler negative for DVT Arterial doppler: some peripheral vascular disease on RLE -Continue IV cefazolin Q8 1g, currently day 3. Will complete 2 week course of treatment. - Improved from yesterday with retraction from previously marked border. Very mild pain on pressing. - Cultures negative so far. -Vascular surgery suggested no intervention at this time for PVD. -If patient becomes hypotensive consider IV steroids (stress dose) -f/u wound consult #Chronic moderate hyponatremia Na 128 on admission -> 132 on latest lab -at baseline continue to monitor -1200ml fluid restriction per nephro -Zaroxolyn likely the bigger culprit with hyponatremia would continue for now but if sodium falls could hold this per nephro #History of nephrotic syndrome - 24hr urine showed 12.6g protein, aligned with her underlying nephrotic symdrome. - f/u microalbumin/cr ratio - restarted lisinopril 5mg and titrate up per neprho AFTER 24 hr urine collection - Continue home dose of PO prednisone (20 BID) - Continue Bactrim for PCP prophylaxis in context of chronic steroid use - If blood pressure drops consider IV steroid stress dose #Chronic lower extremity lymhedema - Leg elevation - continue Lasix 80 mg, metolazone 2.5 mg, spironolactone 50 mg #Chronic medical conditions: hyperlipidemia, GERD, HTN, hypothyroid, seizures and chronic back pain - continue Lipitor, Zetia, Pepcid, metoprolol and Vicodin, phenytoin, aspirin, levothyroxine #FULL CODE Heart Healthy Diet #lovenox Problem List: 1. Cellulitis 2. Nephrotic syndrome Pain Ratin Pain Location: NA Pain Goal: Remain pain free Pain Plan: see AP Tomorrow's Labs & Rationales: CBC/BEP Eneida Mina 09/21/17 1302: Attending Review Statement Attending Statement Attending MD Statement: examined this patient, discuss w/resident/PA/HEARING AID ASSEMBLY SUPERVISOR, agreed w/resident/PA/HEARING AID ASSEMBLY SUPERVISOR, discussed with family, reviewed EMR data (avail), discussed with nursing, discussed with case mgmt, reviewed images, amended to note Attending Assessment/Plan: 76 yo F with h/o HTN, PVD, chronic lymphedema, nephrotic syndrome (renal biopsy shows FSGS) on steroids, chronic back pain, seizure disorder, nonobstructive CAD , is here for evaluation of right lower extremity redness, tender , warmth likely cellulitis. (Also had vascular procedure) Patient seen/examined bedside. She c/o right lower extremity pain, USG with no evidence of dvt. redness+, tender+, warmth+ with some clinical improvement. Assessment and plan: 1. Right lower extremity cellulitis with mild improvement. 2. Sepsis 3. Chronic lymphedema 4. Nephrotic syndrome on chronic steroids 5. Chronic back pain on opiates 6. Chronic hyponatremia - Elevation of leg continue - Blood cultures x 2 f/u. - PO abx. - Wound recommendations followed - f/u Vascular consult recommend no intervention inpatient. - Pain management - continue outpatient prednisone. - Nephro f/u. Addition of chidi inhibitor as per nephro. - PT consult for dc planning. DVT ppx Hep SC. Full code.
--- NOTE | 2017-09-21 13:39 | PN- Nephrology ---
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 titrate up as BP allows. target dose would be in the 10-40 mg range if she tolerates this. To start tacrolimus as outpt. Please ask PT to see patient. She is unable to walk. Philippe Márquez MD Suggestion: . Subjective Subjective: Pt doing much better. 24 hr urine with 12 grams of protein (0.7 grams creatinine ) a bit better than last fall. Cellulitis much better. sd Objective Vital Signs and I&Os 124/70 96 97.6 Lungs clear Cor RRR Abd soft Ext 1+edema erythema better Current Medications: Current Medications Sig/Arsalan Start time Last Medication Dose Route Stop Time Status Admin Acetaminophen 1,000 MG Q6P PRN 09/19 0345 AC N/A 1 UNIT IV Acetaminophen 650 MG Q8P PRN 09/19 0245 AC PO Aspirin Buffered 81 MG QAM 09/19 1000 AC 09/21 PO 0912 Atorvastatin Calcium 40 MG 1700 09/19 1700 AC 09/20 PO 1635 Cefazolin Sodium 1,000 MG IQ8 09/19 0800 AC 09/21 IV 0911 Enoxaparin Sodium 40 MG DAILY 09/19 1000 AC 09/21 SC 0913 Ezetimibe 10 MG QPM 09/19 2200 AC 09/20 PO 2131 Famotidine 40 MG DAILY 09/19 1000 AC 09/21 PO 0912 Furosemide 80 MG DAILY 09/19 1000 AC 09/21 PO 0912 Hydrocodone Bitart/ 1 TAB Q6P PRN 09/19 0330 AC 09/19 Acetaminophen PO 1405 Levothyroxine Sodium 0.05 MG DAILY AC 09/19 0700 AC 09/21 PO 0547 Lisinopril 5 MG DAILY 09/21 1000 AC 09/21 PO 0950 Metolazone 2.5 MG DAILY 09/19 1000 AC 09/21 PO 0911 Metoprolol Tartrate 50 MG BID 09/19 1000 AC 09/21 PO 0913 Patient Medication 1 ED ONE ONE 09/21 1030 DC Teaching ED 09/21 1031 Phenytoin 200 MG BID 09/19 1000 AC 09/21 PO 0912 Potassium Chloride 40 MEQ DAILY 09/19 1000 AC 09/21 PO 0912 Prednisone 20 MG BID 09/19 1000 AC 09/21 PO 0913 Spironolactone 50 MG DAILY 09/19 1000 AC 09/21 PO 0911 Results Pertinent Lab Results: Laboratory Tests 09/21 09/21 09/20 0852 0740 1853 Chemistry Sodium (137 - 145 mmol/L) 132 L Potassium (3.5 - 5.1 mmol/L) 3.1 L Chloride (98 - 107 mmol/L) 93 L Carbon Dioxide (22 - 30 mmol/L) 31 H Anion Gap (5 - 16) 8 BUN (7 - 17 mg/dL) 17 Creatinine (0.5 - 1.0 mg/dL) 0.6 Estimated GFR (>60 ml/min) > 60 BUN/Creatinine Ratio (7 - 25 %) 28.3 H Coagulation D-Dimer High Sensitivty (0 - 243 ng/ml) 439 H Hematology CBC w Diff NO MAN DIFF REQ WBC (4.8 - 10.8 /CUMM) 16.4 H RBC (4.20 - 5.40 /CUMM) 3.38 L Hgb (12.0 - 16.0 G/DL) 11.5 L Hct (37 - 47 %) 34.0 L MCV (81.0 - 99.0 FL) 100.5 H MCH (27.0 - 31.0 PG) 34.0 H MCHC (33.0 - 37.0 G/DL) 33.9 RDW (11.5 - 14.5 %) 13.0 Plt Count (130 - 400 /CUMM) 327 MPV (7.4 - 10.4 FL) 7.9 Gran % (42.2 - 75.2 %) 82.7 H Lymphocytes % (20.5 - 51.1 %) 10.4 L Monocytes % (1.7 - 9.3 %) 6.3 Eosinophils % (0 - 5 %) 0.3 Basophils % (0.0 - 2.0 %) 0.3 Absolute Granulocytes (1.4 - 6.5 /CUMM) 13.6 H Absolute Lymphocytes (1.2 - 3.4 /CUMM) 1.7 Absolute Monocytes (0.10 - 0.60 /CUMM) 1.0 H Absolute Eosinophils (0.0 - 0.7 /CUMM) 0.1 Absolute Basophils (0.0 - 0.2 /CUMM) 0 Urines Ur Random Creatinine (mg/dL) 37.9 Urine Total Volume (600 - 1500 ML/24HR) 1850 H Urine Creatinine (0.8 - 1.8 g/24HR) 0.7 L Ur Total Protein 24 Hr (42 - 255 mg/24HR) 06734.5 H 09/20 09/20 09/20 1600 UNK 0832 Chemistry Sodium (137 - 145 mmol/L) 128 L Potassium (3.5 - 5.1 mmol/L) 3.2 L Chloride (98 - 107 mmol/L) 89 L Carbon Dioxide (22 - 30 mmol/L) 33 H Anion Gap (5 - 16) 6 BUN (7 - 17 mg/dL) 22 H Creatinine (0.5 - 1.0 mg/dL) 0.8 Estimated GFR (>60 ml/min) > 60 BUN/Creatinine Ratio (7 - 25 %) 27.5 H Hematology CBC w Diff NO MAN DIFF REQ WBC (4.8 - 10.8 /CUMM) 16.3 H RBC (4.20 - 5.40 /CUMM) 3.22 L Hgb (12.0 - 16.0 G/DL) 11.3 L Hct (37 - 47 %) 32.5 L MCV (81.0 - 99.0 FL) 101.0 H MCH (27.0 - 31.0 PG) 35.1 H MCHC (33.0 - 37.0 G/DL) 34.8 RDW (11.5 - 14.5 %) 13.4 Plt Count (130 - 400 /CUMM) 296 MPV (7.4 - 10.4 FL) 7.7 Gran % (42.2 - 75.2 %) 87.0 H Lymphocytes % (20.5 - 51.1 %) 7.4 L Monocytes % (1.7 - 9.3 %) 5.5 Eosinophils % (0 - 5 %) 0 Basophils % (0.0 - 2.0 %) 0.1 Absolute Granulocytes (1.4 - 6.5 /CUMM) 14.2 H Absolute Lymphocytes (1.2 - 3.4 /CUMM) 1.2 Absolute Monocytes (0.10 - 0.60 /CUMM) 0.9 H Absolute Eosinophils (0.0 - 0.7 /CUMM) 0 Absolute Basophils (0.0 - 0.2 /CUMM) 0 Urines Ur Random Creatinine Cancelled Urine Total Volume Cancelled Cancelled Urine Creatinine Cancelled Ur Total Protein 24 Hr Cancelled 09/19 09/19 1450 1000 Urines Urine Color (YEL,AMB,STR) YEL Urine Clarity (CLEAR) HAZY H Urine pH (5.0 - 8.0) 6.0 Ur Specific Altha (1.001 - 1.035) 1.025 Urine Protein (NEG,<30 MG/DL) >=300 H Urine Ketones (NEG) NEG Urine Nitrite (NEG) NEG Urine Bilirubin (NEG) NEG Urine Urobilinogen (0.1 - 1.0 EU/dl) 0.2 Ur Leukocyte Esterase (NEG) NEG Ur Microscopic SEDIMENT EXAMINED Urine RBC (0 - 5 /HPF) RARE Urine WBC (0 - 2 /HPF) 3-5 H Ur Epithelial Cells (NONE,FEW) FEW Micro UA Comment BUDDING YEAST H Urine Hemoglobin (NEG) TRACE-INTACT Ur Random Creatinine Cancelled Ur Random Microalbumin Cancelled Urine Total Volume Cancelled Urine Creatinine Cancelled Urine Glucose (N MG/DL) NEG U Cystine/Creat Ratio Cancelled 09/19 09/18 0809 2210 Chemistry Sodium (137 - 145 mmol/L) 129 L 128 L Potassium (3.5 - 5.1 mmol/L) 3.1 L 3.6 Chloride (98 - 107 mmol/L) 90 L 86 L Carbon Dioxide (22 - 30 mmol/L) 31 H 35 H Anion Gap (5 - 16) 8 8 BUN (7 - 17 mg/dL) 25 H 34 H Creatinine (0.5 - 1.0 mg/dL) 0.8 0.9 Estimated GFR (>60 ml/min) > 60 > 60 BUN/Creatinine Ratio (7 - 25 %) 31.3 H 37.8 H Glucose (65 - 99 mg/dL) 157 H Lactic Acid (0.7 - 2.1 mmol/L) 1.6 Calcium (8.4 - 10.2 mg/dL) 8.3 L Total Bilirubin (0.2 - 1.3 mg/dL) 0.3 AST (14 - 36 U/L) 50 H ALT (9 - 52 U/L) 44 Alkaline Phosphatase (<127 U/L) 86 Total Protein (6.3 - 8.2 g/dL) 6.1 L Albumin (3.5 - 5.0 g/dL) 2.9 L Globulin (1.9 - 4.2 gm/dL) 3.2 Albumin/Globulin Ratio (1.1 - 2.2 %) 0.9 L Coagulation D-Dimer High Sensitivty (0 - 243 ng/ml) 217 Hematology CBC w Diff MAN DIFF ORDERED MAN DIFF ORDERED WBC (4.8 - 10.8 /CUMM) 14.3 H 18.5 H RBC (4.20 - 5.40 /CUMM) 3.40 L 4.17 L Hgb (12.0 - 16.0 G/DL) 11.9 L 14.3 Hct (37 - 47 %) 33.8 L 41.8 MCV (81.0 - 99.0 FL) 99.4 H 100.2 H MCH (27.0 - 31.0 PG) 35.2 H 34.2 H MCHC (33.0 - 37.0 G/DL) 35.4 34.2 RDW (11.5 - 14.5 %) 13.7 13.2 Plt Count (130 - 400 /CUMM) 312 397 MPV (7.4 - 10.4 FL) 7.3 L 7.1 L Gran % (42.2 - 75.2 %) 89.8 H 93.9 H Lymphocytes % (20.5 - 51.1 %) 8.5 L 3.6 L Monocytes % (1.7 - 9.3 %) 1.5 L 2.2 Eosinophils % (0 - 5 %) 0.1 0.1 Basophils % (0.0 - 2.0 %) 0.1 0.2 Absolute Granulocytes (1.4 - 6.5 /CUMM) 12.8 H 17.3 H Segmented Neutrophils (42.2 - 75.2 %) 77 H 84 H Band Neutrophils (0.0 - 5.0 %) 12 H 4 Absolute Lymphocytes (1.2 - 3.4 /CUMM) 1.2 0.7 L Lymphocytes (20.5 - 51.1 %) 8 L 9 L Monocytes (1.7 - 9.3 %) 3 2 Absolute Monocytes (0.10 - 0.60 /CUMM) 0.2 0.4 Absolute Eosinophils (0.0 - 0.7 /CUMM) 0 0 Absolute Basophils (0.0 - 0.2 /CUMM) 0 0 Metamyelocytes (0.0 - 1.0 %) 1 Platelet Estimate (ADEQUATE) ADEQUATE Normocytic RBCs VERIFIED Normochromic RBCs VERIFIED Macrocytic Cells 1+ Other Body Source Fld Total RBCs Counted (%) 100
[2017-09-21 13:49] VITALS: BP 122/84
--- NOTE | 2017-09-21 19:05 | Patient Discharge Instructions ---
Discharge Instructions General Discharge Information You were seen/treated for: #Sepsis 2/2 RLE cellulitis #Chronic hyponatremia #Chronic lower extremity edema #Nephrotic Syndrome Special Instructions: - Please follow up with your kidney specialist Dr. Gardner within 1 week of discharge for your nephrotic syndrome and further ealuation of your medications. - Please continue Lasix 80mg daily. - Please recheck your BEP within a week. - Please follow up with your primary care physician within 1-2 week of discharge. Inform your primary care physician of this admission to [facility]. - Continue your current medications per discharge instructions. - Please watch for these problems: Fever, Chills, Nausea, Vomiting, Shortness of Breath, Productive Cough, Chest Pain/Discomfort, Abdominal Pain, Active Bleeding or Bloody urine/stool. Diet Continue normal diet: Yes Activity Full Activity/No Limits: Yes Acute Coronary Syndrome Inclusion Criteria At DC or during hospital stay patient has or had the following: ACS DIAGNOSIS No Discharge Core Measures Meds if any: Prescribed or Continued at Discharge Meds if any: NOT Prescribed or Continued at Discharge Congestive Heart Failure Inclusion Criteria At DC or during hospital stay patient has or had the following: CHF DIAGNOSIS No Discharge Core Measures Meds if any: Prescribed or Continued at Discharge Meds if any: NOT Prescribed or Continued at Discharge Cerebrovascular accident Inclusion Criteria At DC or during hospital stay patient has or had the following: CVA/TIA Diagnosis No Discharge Core Measures Meds if any: Prescribed or Continued at Discharge Meds if any: NOT Prescribed or Continued at Discharge Venous thromboembolism Inclusion Criteria VTE Diagnosis No VTE Type NONE VTE Confirmed by (Test) NONE Discharge Core Measures - Per Current guidelines, there needs to be overlap - treatment for the first 5 days of Warfarin therapy. - If discharged on Warfarin prior to 5 days of - overlap therapy, the patient will need to be - assessed for post discharge needs including - *Post discharge parental anticoagulation - *Warfarin and/or parental anticoagulation education - *Follow up date to check INR post discharge At least 5 days overlap therapy as Inpatient No Meds if any: Prescribed or Continued at Discharge Note: Overlap Therapy is Warfarin and Anticoagulant Meds if any: NOT Prescribed or Continued at Discharge
--- NOTE | 2017-09-21 19:07 | Discharge Summary ---
Visit Information Visit Dates Admission Date: 09/18/17 Hospital Course Course Attending Physician: Eneida Mina MD Primary Care Physician: Jaron Tanner MD Allergies: Coded Allergies: naproxen (Intermediate, RASH, ABD PAIN 03/31/17) tramadol (Intermediate, HEART PALPATATIONS 09/18/17) Penicillins (Mild, RASH 03/31/17) amoxapine (Mild, RASH 03/31/17) duloxetine (From CYMBALTA) (Mild, BLURRY VISION 09/18/17) gabapentin (Mild, BLURRY VISION 09/18/17) pregabalin (From LYRICA) (Mild, BLURRY VISION 09/18/17) amoxicillin (UNKNOWN PER PT EITHER HEART PALPITATIONS OR RASH 04/07/17) PER ORDER SHEET OF 02/18/17 (SJS) ibuprofen (HEART RACING 03/31/17) Pertinent Lab Results: SERVICE DATE: 09/18/17-2140 EXAM TYPE: RAD - XRY-KNEE COMPLETE RIGHT; [id number], RIGHT IMPRESSION: Diffuse subcutaneous edema involving the right knee and right lower extremity. No subcutaneous emphysema identified. Right knee hardware appears intact. SERVICE DATE: 09/19/17- EXAM TYPE: US - US-UNILATERAL VENOUS DOPPLER IMPRESSION: Normal triplex scan without evidence of deep venous thrombosis involving the lower extremity. SERVICE DATE: 09/19/17-1599 EXAM TYPE: US - US-BILAT LOW EXTR ARTERIAL DOP IMPRESSION: There is evidence of some peripheral vascular disease on the right as described above. The left side looks unremarkable. If clinically indicated, CT angiography may be of value to better define the anatomic location of disease. Disposition Summary Disposition Principal Diagnosis: #Sepsis 2/2 RLE cellulitis #Chronic hyponatremia #Chronic lower extremity edema #Nephrotic Syndrome Additional Diagnosis: As above Discharge Instructions General Discharge Information Code Status: Full Code Patient's Diet: Heart Healthy Patient's Activity: As tolerated Medications at Discharge Discharge Medications: Stop taking the following medications: Prednisone (Prednisone) 20 MG TABLET ORAL TWICE DAILY Qty = 90 Potassium Chloride (K-Tab ER) 20 MEQ TABLET.ER ORAL DAILY Qty = 60 Spironolactone (Spironolactone) 50 MG TABLET ORAL DAILY Qty = 30 Metolazone (Metolazone) 2.5 MG TABLET ORAL DAILY Qty = 30 Continue taking these medications: Phenytoin (Dilantin) 100 MG CAPSULE 2 Capsule ORAL TWICE DAILY Comments: Last Taken: 10/04/17 Time: 9:00 AM Metoprolol Tartrate (Lopressor) 50 MG TABLET 1 Tablet ORAL TWICE DAILY Comments: NOT GIVEN IN HOSPITAL Ezetimibe (Zetia) 10 MG TABLET 1 Tablet ORAL Every night Comments: Last Taken: 10/04/17 Time: 9:00 PM Levocetirizine Dihydrochloride (Levocetirizine Dihydrochloride) 5 MG TABLET 1 Tablet ORAL Every night Comments: NOT GIVEN IN HOSPITAL Multivit-Min/FA/Lycopen/Lutein (Centrum Silver Tablet) 0.4 MG-300 MCG-250 MCG TABLET 1 Tablet ORAL 1200 Comments: NOT GIVEN IN HOSPITAL Bran/Gum/Fib/Meredith/Psyl/Kelp/Pec (Fiber 6 Tablet) (Unknown Strength) TABLET Unknown Dose ORAL Every Morning Comments: NOT GIVEN IN HOSPITAL Cholecalciferol (Vitamin D3) (Vitamin D-3) 2,000 UNIT TABLET 1 Tablet ORAL 1200 Comments: Last Taken: 05-26-17 Time: 9 AM Mometasone Furoate (Nasonex) 50 MCG SPRAY.PUMP 1 Teller Both sides of nose DAILY as needed for ALLERGIES Comments: NOT GIVEN IN HOSPITAL Cyanocobalamin (Vitamin B-12) (B-12) 500 MCG TABLET 1 Tablet ORAL 1200 Comments: NOT GIVEN IN HOSPITAL Ascorbic Acid (Vitamin C) 1,000 MG TABLET 2,000 Milligram ORAL 1200 Comments: NOT GIVEN IN HOSPITAL [place]-3 Fatty Acids/Fish Oil (Fish Oil 1,000 MG Softgel) 1 EACH CAPSULE 2 Capsule ORAL 1200 Comments: NOT GIVEN IN HOSPITAL Acetaminophen (Tylenol Extra Strength) 500 MG TABLET 2 Tablet ORAL as needed for PAIN Comments: LAST GIVEN 10/03 3:50 PM Betamethasone Dipropionate (Betamethasone Dipropionate) 0.05 % CREAM..G. 1 Application On the skin TWICE DAILY Qty = 45 Instructions: apply to affected area(s) Comments: NOT GIVEN IN HOSPITAL Rosuvastatin Calcium (Crestor) 40 MG TABLET 1 Tablet ORAL Every night Qty = 30 Comments: Last Taken: 10/03/17 Time: 5 PM GIVEN LIPITOR Bisacodyl (Dulcolax) 5 MG TABLET.DR 1 Tablet ORAL Every night Comments: NOT GIVEN IN HOSPITAL Aspirin (Ecotrin*) 81 MG TABLET.DR 1 Tablet ORAL Every Morning Comments: Last Taken: 10/04/17 Time: 9:50 AM Sulfamethoxazole/Trimethoprim (Bactrim 400-80 MG Tablet) 400 MG-80 MG TABLET 1 Tablet ORAL Every Morning Qty = 30 Comments: NOT GIVEN IN HOSPITAL Ubidecarenone (Co Q-10) 200 MG CAPSULE 1 Capsule ORAL 1200 Comments: NOT GIVEN IN HOSPITAL Famotidine (Heartburn Prevention) 20 MG TABLET 2 Tablet ORAL TWICE DAILY Comments: LAST TAKEN: 10/04/17 9:50 AM Glucosam HCl/Chondro Ulloa A/C/Mn (Glucosamine-Chondroitin Cap) 1 EACH CAPSULE 1 Capsule ORAL 1200 Comments: NOT GIVEN IN HOSPITAL Levothyroxine Sodium (Levothyroxine Sodium) 50 MCG TABLET 1 Tablet ORAL DAILY BEFORE BREAKFAST Comments: Last Taken: 10/04/17 Time: 5:50 AM Hydrocodone/Acetaminophen (Vicodin 5-300 MG Tablet) 5 MG-300 MG TABLET 1 Tablet ORAL As Directed as needed for PAIN Qty = 30 Comments: NOT GIVEN IN HOSPITAL Furosemide (Lasix) 80 MG TABLET 1 Tablet ORAL DAILY Qty = 30 Instructions: . Comments: NOT GIVEN WITH LAST FEW DAYS Tizanidine HCl (Zanaflex) 4 MG CAPSULE 1 Capsule ORAL DAILY Qty = 60 Comments: NOT GIVEN IN HOSPITAL Start taking the following new medications: Prednisone (Prednisone) 5 MG TABLET 10 Milligram ORAL TWICE DAILY Qty = 20 No Refills Instructions: . Comments: LAST GIVEN 10MG 10/04/17 9:00 AM Copies To: Jaron Tanner MD Attending MD Review Statement Documenting Attending: Eneida Mina MD Other Findings: 76 yo F with h/o HTN, PVD, chronic lymphedema, nephrotic syndrome (renal biopsy shows FSGS) on steroids, chronic back pain, seizure disorder, nonobstructive CAD , is here for evaluation of right lower extremity redness, tender , warmth admitted for cellulitis (Also had vascular procedure) now developed acute kidney injury with lisinopril challenge likely ATN possible worsening FSGS. Patient seen/examined bedside. Denies any new complaints, Watch for fluid overlaod, Cr 3.8 today. Patient is working with PT daily. DSICHARGE DIAGNOSIS 1. Right lower extremity cellulitis with improvement 2. Sepsis resoved 3. Chronic lymphedema 4. Nephrotic syndrome on chronic steroids 5. Chronic back pain on opiates 6. Chronic hyponatremia 7. 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 Resumed diuretics as per nephrology. Titrate lasix as per nephro. Can give lasix as outpatent. - f/u Vascular consult recommend no intervention inpatient. - Pain management. - continue outpatient prednisone. Taper prednisone as per nephro. Tacrolimus as per nephro. - PT recommends home PT. - anticipate dc as cr function improves with close outpatient follow up with nephrology Dr Godinez. FOLLOW UP Nephrology in 3-5 days
[2017-09-21 22:35] VITALS: BP 102/60
[2017-09-22 06:20] VITALS: BP 118/70
--- NOTE | 2017-09-22 08:32 | PN- Housestaff ---
BarryTati 09/22/17 08: Subjective Follow-up For: Right lower extremity cellulitis Sepsis Chronic lymphedema Nephrotic syndrome on chronic steroids Chronic back pain on opiates Chronic hyponatremia Subjective: No overnight event. Patient had her legs elevated and had no specific complaint. Patient was eating her breakfast when i entered Review of Systems Constitutional: Reports: see HPI. Objective Last 24 Hrs of Vital Signs/I&O Vital Signs Date Time Temp Pulse Resp B/P B/P Pulse O2 O2 Flow FiO2 Mean Ox Delivery Rate 09/22 1434 97.8 90 20 110/64 96 09/22 1150 Room Air 09/22 0934 98.0 80 16 132/82 09/22 0932 98.0 80 16 132/82 09/22 0800 94 Room Air 09/22 0620 98.1 95 18 118/70 95 Room Air 09/21 2235 98.1 100 20 102/60 97 Room Air 09/21 2115 98.1 100 20 102/60 Intake & Output 09/22 1600 09/22 0800 09/22 0000 Intake Total 110 600 Output Total 200 Balance -90 600 Intake, IV 10 Intake, Oral 100 600 Output, Urine 200 Physical Exam General Appearance: Alert, Oriented X3, Cooperative, No Acute Distress Cardiovascular: Regular Rate, Normal S1 Lungs: Clear to Auscultation, Normal Air Movement Abdomen: Soft, No Tenderness Neurological: Normal Speech Extremities: Normal Pulses, Much improved look from RLE cellulitis with insurance underwriter color and non-tender on pressing Current Medications: Current Medications Sig/Arsalan Start time Last Medication Dose Route Stop Time Status Admin Acetaminophen 1,000 MG Q6P PRN 09/19 0345 AC N/A 1 UNIT IV Acetaminophen 650 MG Q8P PRN 09/19 0245 AC PO Aspirin Buffered 81 MG QAM 09/19 1000 AC 09/22 PO 0935 Atorvastatin Calcium 40 MG 1700 09/19 1700 AC 09/21 PO 1629 Cefazolin Sodium 1,000 MG IQ8 09/19 0800 DC 09/22 IV 0733 Cephalexin 250 MG Q8 09/22 1400 AC PO Enoxaparin Sodium 40 MG DAILY 09/19 1000 AC 09/22 SC 0932 Ezetimibe 10 MG QPM 09/19 2200 AC 09/21 PO 2115 Famotidine 40 MG DAILY 09/19 1000 AC 09/22 PO 0934 Furosemide 80 MG DAILY 09/19 1000 AC 09/22 PO 0934 Hydrocodone Bitart/ 1 TAB Q6P PRN 09/19 0330 AC 09/19 Acetaminophen PO 1405 Levothyroxine Sodium 0.05 MG DAILY AC 09/19 0700 AC 09/22 PO 0534 Lisinopril 5 MG DAILY 09/21 1000 DC 09/22 PO 0932 Metolazone 2.5 MG DAILY 09/19 1000 AC 09/22 PO 0932 Metoprolol Tartrate 50 MG BID 09/19 1000 AC 09/22 PO 0934 Phenytoin 200 MG BID 09/19 1000 AC 09/22 PO 0935 Potassium Chloride 40 MEQ ONCE ONE 09/21 1445 DC 09/21 PO 09/21 1446 1629 Potassium Chloride 40 MEQ DAILY 09/19 1000 DC 09/22 PO 0935 Prednisone 20 MG BID 09/19 1000 AC 09/22 PO 0934 Spironolactone 50 MG DAILY 09/19 1000 DC 09/22 PO 0935 Last 24 Hrs of Lab/Jeyson Results Last 24 Hrs of Labs/Mics: Laboratory Tests 09/22/17 0847: Anion Gap 9, Estimated GFR 24 L, BUN/Creatinine Ratio 16.0, CBC w Diff NO MAN DIFF REQ, RBC 3.54 L, MCV 99.9 H, MCH 34.3 H, MCHC 34.3, RDW 13.4, MPV 7.6, Gran % 78.7 H, Lymphocytes % 10.7 L, Monocytes % 9.4 H, Eosinophils % 1.1, Basophils % 0.1, Absolute Granulocytes 11.9 H, Absolute Lymphocytes 1.6, Absolute Monocytes 1.4 H, Absolute Eosinophils 0.2, Absolute Basophils 0 Assessment/Plan Assessment: Ms. Curiel is a 76-year-old female with past medical history of hypertension, hyperlipidemia, peripheral vascular disease, seizure disorder, chronic lower extremity lymphedema, nephrotic syndrome (renal biopsy shows FSGS) on steroids and chronic lower back pain presenting for swelling, pain and redness of right lower extremity found to have cellulitis of the RLE #Nonpurulent right lower extremity cellulitis, resolving WBC 18.5 4 bands -> 14.3 w/ 12 bands -> 15.1 w/ no bands on latest lab. - Sepsis w/ >10% band (within 24hrs of admission), leukocytosis, and tachycardia >100 on presentation, however resolved with treatment now. D-Dimer 217 -> 439 Bcx negative thus far Venous doppler negative for DVT Arterial doppler: some peripheral vascular disease on RLE -Switched to Oral Keflex 250mg q8, currently day 4. Will complete 2 week course of treatment. - Improved with retraction from previously marked border. Very mild pain on pressing. - Cultures negative so far. -Vascular surgery suggested no intervention at this time for PVD. -If patient becomes hypotensive consider IV steroids (stress dose) -f/u wound consult #Acute Kidney Injury (new onset 09/22/2017): Cr increased suddenly from 0.6 -> 2.0 , likely 2/2 restart of lisinopril after 24hr urine collection. - Will hold lisinopril, spironolactone, and K (to avoid hyperkalemia in CRF). - Recheck BEP in PM and next AM. #Chronic moderate hyponatremia Na 128 on admission -> 130 on latest lab -at baseline continue to monitor -1200ml fluid restriction per nephro -Zaroxolyn likely the bigger culprit with hyponatremia would continue for now but if sodium falls could hold this per nephro #History of nephrotic syndrome - 24hr urine showed 12.6g protein, aligned with her underlying nephrotic symdrome. - f/u microalbumin/cr ratio - Hold lisinopril as above. - Continue home dose of PO prednisone (20 BID) - Continue Bactrim for PCP prophylaxis in context of chronic steroid use - If blood pressure drops consider IV steroid stress dose #Chronic lower extremity lymhedema - Leg elevation - continue Lasix 80 mg, metolazone 2.5 mg, spironolactone 50 mg #Chronic medical conditions: hyperlipidemia, GERD, HTN, hypothyroid, seizures and chronic back pain - continue Lipitor, Zetia, Pepcid, metoprolol and Vicodin, phenytoin, aspirin, levothyroxine #FULL CODE Heart Healthy Diet #lovenox Problem List: 1. Nephrotic syndrome 2. Cellulitis 3. S/P total hip arthroplasty Pain Ratin Pain Location: NA Pain Goal: Remain pain free Pain Plan: see AP Tomorrow's Labs & Rationales: CBC/BEP Shani Mitchell MD 09/22/17 1232: Attending MD Review Statement Attending Statement Attending MD Statement: examined this patient, discuss w/resident/PA/GEOTHERMAL FIELD TECHNICIAN, agreed w/resident/PA/GEOTHERMAL FIELD TECHNICIAN, discussed with family, reviewed EMR data (avail), discussed with nursing, discussed with case mgmt, reviewed images Attending Assessment/Plan: Overall patient feels better. She feels like her right leg is markedly better. She is worried about her ability to go home given the soreness and her weakness. She was seen by PT who is recommending STR. She is a 76-year-old who has chronic lymphedema was here with a right lower extremity nonpurulent cellulitis on IV Ancef. She appears to have a chronically elevated white count which could be attributed to the chronic prednisone she is on for her FSGS associated nephrotic syndrome. She was on Bactrim as an outpatient for PJP prophylaxis witht this high-dose of steroids. She was also on Lasix, metolazone and Aldactone. I am concerned as today after the introduction of lisinopril, as per renal's recommendations to decrease proteinuria it appears that her creatinine dramatically went from 0.6-2.0 today. We'll stop the lisinopril, stop the potassium supplementation and stop the Aldactone. Will have to talk to renal and follow the creatinine closely.
--- NOTE | 2017-09-22 08:47 | PN- Wound Care ---
Subjective Subjective: Patient feels significantly improved. Erythema has almost completely resolved edema is markedly improved Objective Vital Signs and I&Os Vital Signs Result Date Time Pulse Ox 95 09/22 619 B/P 118/70 09/22 619 O2 Delivery Room Air 09/22 619 Temp 98.1 09/22 06 Pulse 95 09/22 0620 Resp 18 09/22 06 Intake & Output 09/22 0000 09/21 1600 09/21 0800 Intake Total 600 240 100 Output Total 1300 900 Balance 600 -1060 -800 Intake, Oral 600 240 100 Number 0 0 Bowel Movements Output, Urine 1300 900 Exam of her right lower extremity shows there to be minimal residual erythema the edema has improved. Persistent leukocytosis is thought secondary to high- dose prednisone Impression/Plan Impression/Plan Impression/Plan: 76-year-old woman with chronic lymphedema is admitted with acute cellulitis after trauma to her right lower extremity. Cellulitis appears to have almost resolved complete course of antibiotics orally patient is safe to resume her maintenance lymphedema treatment
[2017-09-22 09:31] LABS: ABSOLUTE BASOPHIL COUNT 0 /CUMM (0.0-0.2); ABSOLUTE EOSINOPHIL COUNT 0.2 /CUMM (0.0-0.7); ABSOLUTE GRANULOCYTE CT 11.9 /CUMM (1.4-6.5); ABSOLUTE LYMPH COUNT 1.6 /CUMM (1.2-3.4); ABSOLUTE MONOCYTE COUNT 1.4 /CUMM (0.10-0.60); BASOPHIL % 0.1 % (0.0-2.0); EOSINOPHIL % 1.1 % (0-5); GRANULOCYTE % 78.7 % (42.2-75.2); HEMATOCRIT 35.4 % (37-47); MEAN CORPUSCULAR HGB 34.3 PG (27.0-31.0); MEAN CORPUSCULAR HGB CONC 34.3 G/DL (33.0-37.0); MEAN CORPUSCULAR VOLUME 99.9 FL (81.0-99.0); MEAN PLATELET VOLUME 7.6 FL (7.4-10.4); PLATELET COUNT 414 /CUMM (130-400); RBC DISTRIBUTION WIDTH 13.4 % (11.5-14.5); RED BLOOD CELL CT 3.54 /CUMM (4.20-5.40); WHITE BLOOD CELL COUNT 15.1 /CUMM (4.8-10.8)
--- NOTE | 2017-09-22 11:35 | Discharge Summary ---
Visit Information Visit Dates Admission Date: 09/18/17 Discharge Date: 10/04/2017 Hospital Course Course Attending Physician: Paula FONTENOT,Shani Simmons Primary Care Physician: Jaron Tanner MD Consulting Request: Consulting Specialty: Nephrology Consulting Physician: Reason for Consult: FSGS Hospital Course: 76 yo F with h/o HTN, PVD, chronic lymphedema, nephrotic syndrome (renal biopsy shows FSGS) on steroids, chronic back pain, seizure disorder, nonobstructive CAD , is here for evaluation of right lower extremity swelling,, redness and pain for last 2 days. Vitals on admission: Temperature 95.8, pulse 116, respiratory rate 18, blood pressure 129/78 and oxygen saturation 97% on room air. Pertinent physical exam findings: Drowsy and disoriented. Tachycardia on heart auscultation. Right lower extremity is swollen and erythematous. It is warm and tender to touch. There is also a small abrasion on the lateral side of lower leg. No discharge noted. Redness is spreading up to inner side of her thigh. There is a vertical scar denia on her right knee. She is able to bend her knee. Pulses are difficult to palpate because of swelling. Right leg is also swollen with 2+ pitting edema. Pertinent labs: WBC count 18.5, sodium 128, potassium 3.6, chloride 86, bicarbonate 35, calcium 8.3, AST 50, albumin 2.9. D-dimer 217 Problem list 1. Sepsis secondary to her lower extremity cellulitis 2. Leukocytosis. Sepsis vs steroids 3. History of nephrotic syndrome w renal bx suggestive FSGS. On prednisone taper (15 mg BID 09/24-09/30, 10 mg BID 10/01-10/07, 5 mg BID 10/15-10/21). Plan to start her on tacrolimus on 10/03. She is on Lasix, metolazone and spironolactone. 4. History of HTN/HLD On metoprolol/Zetia and Crestor 5. History of chronic hyponatremia. On 1 L fluid restriction 6. History of seizure disorder on Dilantin 7. On Bactrim, ? PCP prophylaxis given chronic steroid use 8. History of GERD on famotidine 9. History of hypothyroidism 10. History of chronic low back pain. On Tylenol and Vicodin at home Admitted to general medicine floor and the following is her management Nonpurulent right lower extremity cellulitis, resolving Intially she had WBC 18.5 4 bands -> 14.3 w/ 12 bands -> 15.1 w/ no bands on latest lab. Presumably Sepsis w/ >10% band, leukocytosis, and tachycardia >100 at presentation. Started on IV cefazoline with good response, so transitioned to oral keflex and completed a 7-day course. Blood cultures were negative. Doppler had ruled out DVT. Arterial doppler shows scattered plaques secondary to PVD (no inpatient management required). ANURAG/ATN secondary to lisinopril Patient is on a long couse of steroid taper for FSGS. During this hospitalization 24-hour urine collection revealed 12.6 g of protein excretion ( previously 15 g). She was started on lisinopril 5 mg which increased her creatinine to 2.0 which further got worse up to 4.6. Lasix, spironolactone and metolazone were held and watchfully waited for creatinine to return. Patient's Cr slowly improved to 3.8 prior discharge and patient was advised to restarted lasix 80mg daily. Patient would need to follow up with coil assembler outpatient for restart of other medications. Last yr ultrasound of the patient did show small kidney on right side, normal kidney on left side. It was presumed that patient could have KENNEDY on left side, however renal doppler showed no KENNEDY. Further evaluation by renal scan or captopril renal to check split function +/- evidence of KENNEDY (mostly looking at the left kidney changes) could be done but this would have to wait until after creatinine recovers to baseline and could be done as outpt. Patient's prednisone for her nephrotic syndrome had been tapered to 10mg twice daily based on the tapering schedule from her coil assembler. Tacrolimus was not started due to ANURAG/ATN and would defer to outpatient follow up. DVT prophylaxis Subcutaneous Lovenox CODE STATUS Full code Complications: Increase in creatinine after starting lisinopril 5mg Allergies: Coded Allergies: naproxen (Intermediate, RASH, ABD PAIN 03/31/17) tramadol (Intermediate, HEART PALPATATIONS 09/18/17) Penicillins (Mild, RASH 03/31/17) amoxapine (Mild, RASH 03/31/17) duloxetine (From CYMBALTA) (Mild, BLURRY VISION 09/18/17) gabapentin (Mild, BLURRY VISION 09/18/17) pregabalin (From LYRICA) (Mild, BLURRY VISION 09/18/17) amoxicillin (UNKNOWN PER PT EITHER HEART PALPITATIONS OR RASH 04/07/17) PER ORDER SHEET OF 02/18/17 ([facility]) ibuprofen (HEART RACING 03/31/17) Significant Procedures: EXAM TYPE: RAD - XRY-KNEE COMPLETE RIGHT; [id number], RIGHT IMPRESSION: Diffuse subcutaneous edema involving the right knee and right lower extremity. No subcutaneous emphysema identified. Right knee hardware appears intact. SERVICE DATE: 09/19/17- EXAM TYPE: US - US-UNILATERAL VENOUS DOPPLER IMPRESSION: Normal triplex scan without evidence of deep venous thrombosis involving the lower extremity. SERVICE DATE: 09/19/17-1600 EXAM TYPE: US - US-BILAT LOW EXTR ARTERIAL DOP IMPRESSION: There is evidence of some peripheral vascular disease on the right as described above. The left side looks unremarkable. If clinically indicated, CT angiography may be of value to better define the anatomic location of disease. Pertinent Lab Results: as above Disposition Summary Disposition Principal Diagnosis: Sepsis 2/2 RLE cellulitis Additional Diagnosis: Chronic hyponatremia Chronic lower extremity edema Nephrotic Syndrome with focal segmental glomerulosclerosis on renal biopsy Discharge Disposition: short term rehab Discharge Instructions General Discharge Information Code Status: Full Code Patient's Diet: heart healthy Patient's Activity: as tolerated Follow-Up Instructions/Appts: Please follow up with your PCP in a week Please follow up with your Director Of Therapy Services in a week Medications at Discharge Discharge Medications: Stop taking the following medications: Prednisone (Prednisone) 20 MG TABLET ORAL TWICE DAILY Qty = 90 Potassium Chloride (K-Tab ER) 20 MEQ TABLET.ER ORAL DAILY Qty = 60 Spironolactone (Spironolactone) 50 MG TABLET ORAL DAILY Qty = 30 Metolazone (Metolazone) 2.5 MG TABLET ORAL DAILY Qty = 30 Continue taking these medications: Phenytoin (Dilantin) 100 MG CAPSULE 2 Capsule ORAL TWICE DAILY Comments: Last Taken: 10/04/17 Time: 9:00 AM Metoprolol Tartrate (Lopressor) 50 MG TABLET 1 Tablet ORAL TWICE DAILY Comments: NOT GIVEN IN HOSPITAL Ezetimibe (Zetia) 10 MG TABLET 1 Tablet ORAL Every night Comments: Last Taken: 10/04/17 Time: 9:00 PM Levocetirizine Dihydrochloride (Levocetirizine Dihydrochloride) 5 MG TABLET 1 Tablet ORAL Every night Comments: NOT GIVEN IN HOSPITAL Multivit-Min/FA/Lycopen/Lutein (Centrum Silver Tablet) 0.4 MG-300 MCG-250 MCG TABLET 1 Tablet ORAL 1200 Comments: NOT GIVEN IN HOSPITAL Bran/Gum/Fib/Meredith/Psyl/Kelp/Pec (Fiber 6 Tablet) (Unknown Strength) TABLET Unknown Dose ORAL Every Morning Comments: NOT GIVEN IN HOSPITAL Cholecalciferol (Vitamin D3) (Vitamin D-3) 2,000 UNIT TABLET 1 Tablet ORAL 1200 Comments: Last Taken: 05-26-17 Time: 9 AM Mometasone Furoate (Nasonex) 50 MCG SPRAY.PUMP 1 [place] Both sides of nose DAILY as needed for ALLERGIES Comments: NOT GIVEN IN HOSPITAL Cyanocobalamin (Vitamin B-12) (B-12) 500 MCG TABLET 1 Tablet ORAL 1200 Comments: NOT GIVEN IN HOSPITAL Ascorbic Acid (Vitamin C) 1,000 MG TABLET 2,000 Milligram ORAL 1200 Comments: NOT GIVEN IN HOSPITAL [place]-3 Fatty Acids/Fish Oil (Fish Oil 1,000 MG Softgel) 1 EACH CAPSULE 2 Capsule ORAL 1200 Comments: NOT GIVEN IN HOSPITAL Acetaminophen (Tylenol Extra Strength) 500 MG TABLET 2 Tablet ORAL as needed for PAIN Comments: LAST GIVEN 10/03 3:50 PM Betamethasone Dipropionate (Betamethasone Dipropionate) 0.05 % CREAM..G. 1 Application On the skin TWICE DAILY Qty = 45 Instructions: apply to affected area(s) Comments: NOT GIVEN IN HOSPITAL Rosuvastatin Calcium (Crestor) 40 MG TABLET 1 Tablet ORAL Every night Qty = 30 Comments: Last Taken: 10/03/17 Time: 5 PM GIVEN LIPITOR Bisacodyl (Dulcolax) 5 MG TABLET.DR 1 Tablet ORAL Every night Comments: NOT GIVEN IN HOSPITAL Aspirin (Ecotrin*) 81 MG TABLET.DR 1 Tablet ORAL Every Morning Comments: Last Taken: 10/04/17 Time: 9:50 AM Sulfamethoxazole/Trimethoprim (Bactrim 400-80 MG Tablet) 400 MG-80 MG TABLET 1 Tablet ORAL Every Morning Qty = 30 Comments: NOT GIVEN IN HOSPITAL Ubidecarenone (Co Q-10) 200 MG CAPSULE 1 Capsule ORAL 1200 Comments: NOT GIVEN IN HOSPITAL Famotidine (Heartburn Prevention) 20 MG TABLET 2 Tablet ORAL TWICE DAILY Comments: LAST TAKEN: 10/04/17 9:50 AM Glucosam HCl/Chondro [place] A/C/Mn (Glucosamine-Chondroitin Cap) 1 EACH CAPSULE 1 Capsule ORAL 1200 Comments: NOT GIVEN IN HOSPITAL Levothyroxine Sodium (Levothyroxine Sodium) 50 MCG TABLET 1 Tablet ORAL DAILY BEFORE BREAKFAST Comments: Last Taken: 10/04/17 Time: 5:50 AM Hydrocodone/Acetaminophen (Vicodin 5-300 MG Tablet) 5 MG-300 MG TABLET 1 Tablet ORAL As Directed as needed for PAIN Qty = 30 Comments: NOT GIVEN IN HOSPITAL Furosemide (Lasix) 80 MG TABLET 1 Tablet ORAL DAILY Qty = 30 Instructions: . Comments: NOT GIVEN WITH LAST FEW DAYS Tizanidine HCl (Zanaflex) 4 MG CAPSULE 1 Capsule ORAL DAILY Qty = 60 Comments: NOT GIVEN IN HOSPITAL Start taking the following new medications: Prednisone (Prednisone) 5 MG TABLET 10 Milligram ORAL TWICE DAILY Qty = 20 No Refills Instructions: . Comments: LAST GIVEN 10MG 10/04/17 9:00 AM Copies To: Jj FONTENOT,Ede Ruiz; Jraon Tanner MD Attending MD Review Statement Documenting Attending: Shani Mitchell MD
[2017-09-22 14:34] VITALS: BP 110/64
--- NOTE | 2017-09-22 15:05 | PN- Nephrology ---
Assessment/Plan Assessment: FSGS. Cr up. repeat labs today. If hi (I suspect it will be) she will not be able to take ACEI or ARB. At some point could look for KENNEDY (can be done as outpt). Philippe Márquez MD Suggestion: . Subjective Subjective: Asked to resee for Cr up to 2.0. Pt received 2 doses of lisinopril (yesterday and today) (2.0 reflects only first dose) Objective Vital Signs and I&Os F NAD 110/64 90 97.8 Lungs clear Cor RRR Abd soft Ext 1+edema cellulitis better. Results Pertinent Lab Results: Laboratory Tests 09/22 09/21 0847 0852 Chemistry Sodium (137 - 145 mmol/L) 130 L Potassium (3.5 - 5.1 mmol/L) 4.1 Chloride (98 - 107 mmol/L) 93 L Carbon Dioxide (22 - 30 mmol/L) 27 Anion Gap (5 - 16) 9 BUN (7 - 17 mg/dL) 32 H Creatinine (0.5 - 1.0 mg/dL) 2.0 H Estimated GFR (>60 ml/min) 24 L BUN/Creatinine Ratio (7 - 25 %) 16.0 Coagulation D-Dimer High Sensitivty (0 - 243 ng/ml) 439 H Hematology CBC w Diff NO MAN DIFF REQ WBC (4.8 - 10.8 /CUMM) 15.1 H RBC (4.20 - 5.40 /CUMM) 3.54 L Hgb (12.0 - 16.0 G/DL) 12.1 Hct (37 - 47 %) 35.4 L MCV (81.0 - 99.0 FL) 99.9 H MCH (27.0 - 31.0 PG) 34.3 H MCHC (33.0 - 37.0 G/DL) 34.3 RDW (11.5 - 14.5 %) 13.4 Plt Count (130 - 400 /CUMM) 414 H MPV (7.4 - 10.4 FL) 7.6 Gran % (42.2 - 75.2 %) 78.7 H Lymphocytes % (20.5 - 51.1 %) 10.7 L Monocytes % (1.7 - 9.3 %) 9.4 H Eosinophils % (0 - 5 %) 1.1 Basophils % (0.0 - 2.0 %) 0.1 Absolute Granulocytes (1.4 - 6.5 /CUMM) 11.9 H Absolute Lymphocytes (1.2 - 3.4 /CUMM) 1.6 Absolute Monocytes (0.10 - 0.60 /CUMM) 1.4 H Absolute Eosinophils (0.0 - 0.7 /CUMM) 0.2 Absolute Basophils (0.0 - 0.2 /CUMM) 0 09/21 09/20 0740 1853 Chemistry Sodium (137 - 145 mmol/L) 132 L Potassium (3.5 - 5.1 mmol/L) 3.1 L Chloride (98 - 107 mmol/L) 93 L Carbon Dioxide (22 - 30 mmol/L) 31 H Anion Gap (5 - 16) 8 BUN (7 - 17 mg/dL) 17 Creatinine (0.5 - 1.0 mg/dL) 0.6 Estimated GFR (>60 ml/min) > 60 BUN/Creatinine Ratio (7 - 25 %) 28.3 H Hematology CBC w Diff NO MAN DIFF REQ WBC (4.8 - 10.8 /CUMM) 16.4 H RBC (4.20 - 5.40 /CUMM) 3.38 L Hgb (12.0 - 16.0 G/DL) 11.5 L Hct (37 - 47 %) 34.0 L MCV (81.0 - 99.0 FL) 100.5 H MCH (27.0 - 31.0 PG) 34.0 H MCHC (33.0 - 37.0 G/DL) 33.9 RDW (11.5 - 14.5 %) 13.0 Plt Count (130 - 400 /CUMM) 327 MPV (7.4 - 10.4 FL) 7.9 Gran % (42.2 - 75.2 %) 82.7 H Lymphocytes % (20.5 - 51.1 %) 10.4 L Monocytes % (1.7 - 9.3 %) 6.3 Eosinophils % (0 - 5 %) 0.3 Basophils % (0.0 - 2.0 %) 0.3 Absolute Granulocytes (1.4 - 6.5 /CUMM) 13.6 H Absolute Lymphocytes (1.2 - 3.4 /CUMM) 1.7 Absolute Monocytes (0.10 - 0.60 /CUMM) 1.0 H Absolute Eosinophils (0.0 - 0.7 /CUMM) 0.1 Absolute Basophils (0.0 - 0.2 /CUMM) 0 Urines Ur Random Creatinine (mg/dL) 37.9 Urine Total Volume (600 - 1500 ML/24HR) 1850 H Urine Creatinine (0.8 - 1.8 g/24HR) 0.7 L Ur Total Protein 24 Hr (42 - 255 mg/24HR) 18638.5 H 09/20 09/20 09/20 1600 UNK 0832 Chemistry Sodium (137 - 145 mmol/L) 128 L Potassium (3.5 - 5.1 mmol/L) 3.2 L Chloride (98 - 107 mmol/L) 89 L Carbon Dioxide (22 - 30 mmol/L) 33 H Anion Gap (5 - 16) 6 BUN (7 - 17 mg/dL) 22 H Creatinine (0.5 - 1.0 mg/dL) 0.8 Estimated GFR (>60 ml/min) > 60 BUN/Creatinine Ratio (7 - 25 %) 27.5 H Hematology CBC w Diff NO MAN DIFF REQ WBC (4.8 - 10.8 /CUMM) 16.3 H RBC (4.20 - 5.40 /CUMM) 3.22 L Hgb (12.0 - 16.0 G/DL) 11.3 L Hct (37 - 47 %) 32.5 L MCV (81.0 - 99.0 FL) 101.0 H MCH (27.0 - 31.0 PG) 35.1 H MCHC (33.0 - 37.0 G/DL) 34.8 RDW (11.5 - 14.5 %) 13.4 Plt Count (130 - 400 /CUMM) 296 MPV (7.4 - 10.4 FL) 7.7 Gran % (42.2 - 75.2 %) 87.0 H Lymphocytes % (20.5 - 51.1 %) 7.4 L Monocytes % (1.7 - 9.3 %) 5.5 Eosinophils % (0 - 5 %) 0 Basophils % (0.0 - 2.0 %) 0.1 Absolute Granulocytes (1.4 - 6.5 /CUMM) 14.2 H Absolute Lymphocytes (1.2 - 3.4 /CUMM) 1.2 Absolute Monocytes (0.10 - 0.60 /CUMM) 0.9 H Absolute Eosinophils (0.0 - 0.7 /CUMM) 0 Absolute Basophils (0.0 - 0.2 /CUMM) 0 Urines Ur Random Creatinine Cancelled Urine Total Volume Cancelled Cancelled Urine Creatinine Cancelled Ur Total Protein 24 Hr Cancelled
[2017-09-22 22:28] VITALS: BP 124/70
[2017-09-23 05:46] VITALS: BP 120/70
--- NOTE | 2017-09-23 08:44 | PN- Housestaff ---
Tati Redyd 09/23/17 0839: Subjective Follow-up For: Right lower extremity cellulitis Sepsis Chronic lymphedema Nephrotic syndrome on chronic steroids Chronic back pain on opiates Chronic hyponatremia Subjective: No complaint. Patient was working with physical therapy when I entered. Patient admitted soreness from RLE cellulitis site but no pain. Patient felt sore throat this morning but denied chills/fever/muscle aches. Review of Systems Constitutional: Reports: see HPI. Objective Last 24 Hrs of Vital Signs/I&O Vital Signs Date Time Temp Pulse Resp B/P B/P Pulse O2 O2 Flow FiO2 Mean Ox Delivery Rate 09/23 0546 98.0 91 20 120/70 96 09/22 2228 97.6 89 20 124/70 97 09/22 2139 88 120/60 09/22 1600 95 Room Air 09/22 1434 97.8 90 20 110/64 96 09/22 1150 Room Air 09/22 0934 98.0 80 16 132/82 09/22 0932 98.0 80 16 132/82 Intake & Output 09/23 1600 09/23 0800 09/23 0000 Intake Total 100 100 Output Total 802 300 Balance -702 -200 Intake, Oral 100 100 Number 1 Bowel Movements Output, Stool 2 Output, Urine 800 300 Physical Exam General Appearance: Alert, Oriented X3, Cooperative, No Acute Distress Cardiovascular: Regular Rate Lungs: Normal Air Movement Neurological: Normal Speech Extremities: Normal Pulses, RLE darken color without erythema or elevation of skin temp. Appeared more swelling compared to left but not tender to press. Current Medications: Current Medications Sig/Arsalan Start time Last Medication Dose Route Stop Time Status Admin Acetaminophen 1,000 MG Q6P PRN 09/19 0345 AC N/A 1 UNIT IV Acetaminophen 650 MG Q8P PRN 09/19 0245 AC PO Aspirin Buffered 81 MG QAM 09/19 1000 AC 09/22 PO 0935 Atorvastatin Calcium 40 MG 1700 09/19 1700 AC 09/22 PO 1554 Cefazolin Sodium 1,000 MG IQ8 09/19 0800 DC 09/22 IV 0733 Cephalexin 250 MG Q8 09/22 1400 AC 09/23 PO 0552 Enoxaparin Sodium 40 MG DAILY 09/19 1000 AC 09/22 SC 0932 Ezetimibe 10 MG QPM 09/19 2200 AC 09/22 PO 2133 Famotidine 40 MG DAILY 09/19 1000 AC 09/22 PO 0934 Furosemide 80 MG DAILY 09/19 1000 AC 09/22 PO 0934 Hydrocodone Bitart/ 1 TAB Q6P PRN 09/19 0330 AC 09/19 Acetaminophen PO 1405 Levothyroxine Sodium 0.05 MG DAILY AC 09/19 0700 AC 09/23 PO 0553 Lisinopril 5 MG DAILY 09/21 1000 DC 09/22 PO 0932 Metolazone 2.5 MG DAILY 09/19 1000 AC 09/22 PO 0932 Metoprolol Tartrate 50 MG BID 09/19 1000 AC 09/22 PO 2139 Phenytoin 200 MG BID 09/19 1000 AC 09/22 PO 2133 Potassium Chloride 40 MEQ DAILY 09/19 1000 DC 09/22 PO 0935 Prednisone 15 MG BID 09/24 1000 AC PO Prednisone 20 MG BID 09/19 1000 AC 09/22 PO 09/23 2300 2155 Spironolactone 50 MG DAILY 09/19 1000 DC 09/22 PO 0935 Last 24 Hrs of Lab/Jeyson Results Last 24 Hrs of Labs/Mics: Laboratory Tests 09/23/17 0600: CBC w Diff Cancelled, WBC Cancelled, RBC Cancelled, Hgb Cancelled, Hct Cancelled , MCV Cancelled, MCH Cancelled, MCHC Cancelled, RDW Cancelled, Plt Count Cancelled, MPV Cancelled 09/22/17 2050: Anion Gap 10, Estimated GFR 18 L, BUN/Creatinine Ratio 16.2 09/22/17 0847: Anion Gap 9, Estimated GFR 24 L, BUN/Creatinine Ratio 16.0, CBC w Diff NO MAN DIFF REQ, RBC 3.54 L, MCV 99.9 H, MCH 34.3 H, MCHC 34.3, RDW 13.4, MPV 7.6, Gran % 78.7 H, Lymphocytes % 10.7 L, Monocytes % 9.4 H, Eosinophils % 1.1, Basophils % 0.1, Absolute Granulocytes 11.9 H, Absolute Lymphocytes 1.6, Absolute Monocytes 1.4 H, Absolute Eosinophils 0.2, Absolute Basophils 0 Assessment/Plan Assessment: Ms. Curiel is a 76-year-old female with past medical history of hypertension, hyperlipidemia, peripheral vascular disease, seizure disorder, chronic lower extremity lymphedema, nephrotic syndrome (renal biopsy shows FSGS) on steroids and chronic lower back pain presenting for swelling, pain and redness of right lower extremity found to have cellulitis of the RLE #Nonpurulent right lower extremity cellulitis, resolving WBC 18.5 4 bands -> 14.3 w/ 12 bands -> 15.1 w/ no bands on latest lab. - Sepsis w/ >10% band (within 24hrs of admission), leukocytosis, and tachycardia >100 on presentation, however resolved with treatment now. D-Dimer 217 -> 439 Bcx negative thus far Venous doppler negative for DVT Arterial doppler: some peripheral vascular disease on RLE -Switched to Oral Keflex 250mg q8, currently day 5. Will complete 2 week course of treatment. - RLE appeared to be in chronic change from cellulitis without pain/elevated skin temp. Encouraged patient to try her best of OOB to chair. - Cultures negative so far. -Vascular surgery suggested no intervention at this time for PVD. -If patient becomes hypotensive consider IV steroids (stress dose) -f/u wound consult #Acute Kidney Injury (new onset 09/22/2017): Cr increased suddenly from 0.6 -> 2.0 -> 2.6, likely 2/2 restart of lisinopril after 24hr urine collection. - Will hold lisinopril, spironolactone, and K (to avoid hyperkalemia in CRF). - Recheck BEP in PM and next AM. #Chronic moderate hyponatremia Na 128 on admission -> 130 on latest lab -at baseline continue to monitor -1200ml fluid restriction per nephro -Zaroxolyn likely the bigger culprit with hyponatremia would continue for now but if sodium falls could hold this per nephro #History of nephrotic syndrome - 24hr urine showed 12.6g protein, aligned with her underlying nephrotic symdrome. - f/u microalbumin/cr ratio - Hold lisinopril as above. - Continue home dose of PO prednisone (20 BID) - Continue Bactrim for PCP prophylaxis in context of chronic steroid use - If blood pressure drops consider IV steroid stress dose #Chronic lower extremity lymhedema - Leg elevation - continue Lasix 80 mg, metolazone 2.5 mg, spironolactone 50 mg #Chronic medical conditions: hyperlipidemia, GERD, HTN, hypothyroid, seizures and chronic back pain - continue Lipitor, Zetia, Pepcid, metoprolol and Vicodin, phenytoin, aspirin, levothyroxine #FULL CODE Heart Healthy Diet #lovenox Problem List: 1. Nephrotic syndrome 2. Cellulitis Pain Ratin Pain Location: NA Pain Goal: Remain pain free Pain Plan: see AP Tomorrow's Labs & Rationales: BRIAN Mitchell MD,Shani 09/23/17 1434: Attending MD Review Statement Attending Statement Attending MD Statement: examined this patient, discuss w/resident/PA/APPLICATION DEFENSE MANAGER, agreed w/resident/PA/APPLICATION DEFENSE MANAGER, reviewed EMR data (avail), discussed with nursing, reviewed images Attending Assessment/Plan: Pt feels okay. She's worried about her kidneys. Now her creatinine went from 2 yesterday to 2.6 yesterday afternoon to 3 today. We spoke at length with the senior tax accountant whose feeling is this is likely renal artery stenosis and given that it appears that she has only one functioning kidney even unilateral renal artery stenosis could do this. He feels that this reflects the 2 doses of the lisinopril and in the next 24-48 hours, her creatinine will start coming down. We'll await that closely. We'll follow the creatinine closely. Will hold off on the Lasix, metolazone for now and watch the creatinine. Will switch her to by mouth Augmentin for the cellulitis.
[2017-09-23] MEDS ORDERED: CEPHALEXIN250 M2 PO (08:47)
--- NOTE | 2017-09-23 13:00 | PN- Nephrology ---
Assessment/Plan Assessment: FSGS. ANURAG most likely due to lisinopril. Ultrasound done here last year showed a small right kidney (8.5 cm) and normal L (10.7 cm) (note this is a single dimension so kidney volume is proportional to the cube of a single dimension. hence the smaller kidney is less than half the size of the larger. The loss is predominantly cortical so the R kidney has very little function and I suspect most of the function is from the left. She could have unilateral left KENNEDY to explain this ANURAG. In any case Cr should start to recover over the weekend. Avoid NSAIDs/ACEI/ARB. Could do renal scan or captopril renal to check split function +/- evidence of KENNEDY (mostly looking at the left kidney changes) but this would have to wait until after creatinine recovers to baseline and could be done as outpt. Okay to use lasix. Okay to hold today but will need to resume over weekend to avoid reaccumulation of edema. Philippe Márquez MD. Suggestion: . Subjective Subjective: Pt comfortable Cr up to 3.0 today (expected) Objective Vital Signs and I&Os F NAD BP 128/80 80 98.1 Lungs clear Cor RRR Abd soft Ext 1+ edema Results Pertinent Lab Results: Laboratory Tests 09/23 09/23 09/22 0700 0600 2050 Chemistry Sodium (137 - 145 mmol/L) 128 L 128 L Potassium (3.5 - 5.1 mmol/L) 5.1 4.7 Chloride (98 - 107 mmol/L) 91 L 89 L Carbon Dioxide (22 - 30 mmol/L) 27 29 Anion Gap (5 - 16) 9 10 BUN (7 - 17 mg/dL) 44 H 42 H Creatinine (0.5 - 1.0 mg/dL) 3.0 H 2.6 H Estimated GFR (>60 ml/min) 15 L 18 L BUN/Creatinine Ratio (7 - 25 %) 14.7 16.2 Hematology CBC w Diff Cancelled WBC Cancelled RBC Cancelled Hgb Cancelled Hct Cancelled MCV Cancelled MCH Cancelled MCHC Cancelled RDW Cancelled Plt Count Cancelled MPV Cancelled 09/22 09/21 0847 0852 Chemistry Sodium (137 - 145 mmol/L) 130 L Potassium (3.5 - 5.1 mmol/L) 4.1 Chloride (98 - 107 mmol/L) 93 L Carbon Dioxide (22 - 30 mmol/L) 27 Anion Gap (5 - 16) 9 BUN (7 - 17 mg/dL) 32 H Creatinine (0.5 - 1.0 mg/dL) 2.0 H Estimated GFR (>60 ml/min) 24 L BUN/Creatinine Ratio (7 - 25 %) 16.0 Coagulation D-Dimer High Sensitivty (0 - 243 ng/ml) 439 H Hematology CBC w Diff NO MAN DIFF REQ WBC (4.8 - 10.8 /CUMM) 15.1 H RBC (4.20 - 5.40 /CUMM) 3.54 L Hgb (12.0 - 16.0 G/DL) 12.1 Hct (37 - 47 %) 35.4 L MCV (81.0 - 99.0 FL) 99.9 H MCH (27.0 - 31.0 PG) 34.3 H MCHC (33.0 - 37.0 G/DL) 34.3 RDW (11.5 - 14.5 %) 13.4 Plt Count (130 - 400 /CUMM) 414 H MPV (7.4 - 10.4 FL) 7.6 Gran % (42.2 - 75.2 %) 78.7 H Lymphocytes % (20.5 - 51.1 %) 10.7 L Monocytes % (1.7 - 9.3 %) 9.4 H Eosinophils % (0 - 5 %) 1.1 Basophils % (0.0 - 2.0 %) 0.1 Absolute Granulocytes (1.4 - 6.5 /CUMM) 11.9 H Absolute Lymphocytes (1.2 - 3.4 /CUMM) 1.6 Absolute Monocytes (0.10 - 0.60 /CUMM) 1.4 H Absolute Eosinophils (0.0 - 0.7 /CUMM) 0.2 Absolute Basophils (0.0 - 0.2 /CUMM) 0 09/21 09/20 0740 1853 Chemistry Sodium (137 - 145 mmol/L) 132 L Potassium (3.5 - 5.1 mmol/L) 3.1 L Chloride (98 - 107 mmol/L) 93 L Carbon Dioxide (22 - 30 mmol/L) 31 H Anion Gap (5 - 16) 8 BUN (7 - 17 mg/dL) 17 Creatinine (0.5 - 1.0 mg/dL) 0.6 Estimated GFR (>60 ml/min) > 60 BUN/Creatinine Ratio (7 - 25 %) 28.3 H Hematology CBC w Diff NO MAN DIFF REQ WBC (4.8 - 10.8 /CUMM) 16.4 H RBC (4.20 - 5.40 /CUMM) 3.38 L Hgb (12.0 - 16.0 G/DL) 11.5 L Hct (37 - 47 %) 34.0 L MCV (81.0 - 99.0 FL) 100.5 H MCH (27.0 - 31.0 PG) 34.0 H MCHC (33.0 - 37.0 G/DL) 33.9 RDW (11.5 - 14.5 %) 13.0 Plt Count (130 - 400 /CUMM) 327 MPV (7.4 - 10.4 FL) 7.9 Gran % (42.2 - 75.2 %) 82.7 H Lymphocytes % (20.5 - 51.1 %) 10.4 L Monocytes % (1.7 - 9.3 %) 6.3 Eosinophils % (0 - 5 %) 0.3 Basophils % (0.0 - 2.0 %) 0.3 Absolute Granulocytes (1.4 - 6.5 /CUMM) 13.6 H Absolute Lymphocytes (1.2 - 3.4 /CUMM) 1.7 Absolute Monocytes (0.10 - 0.60 /CUMM) 1.0 H Absolute Eosinophils (0.0 - 0.7 /CUMM) 0.1 Absolute Basophils (0.0 - 0.2 /CUMM) 0 Urines Ur Random Creatinine (mg/dL) 37.9 Urine Total Volume (600 - 1500 ML/24HR) 1850 H Urine Creatinine (0.8 - 1.8 g/24HR) 0.7 L Ur Total Protein 24 Hr (42 - 255 mg/24HR) 27359.5 H 09/20 1600 Urines Ur Random Creatinine Cancelled Urine Total Volume Cancelled Urine Creatinine Cancelled
[2017-09-23 14:03] VITALS: BP 110/80; BP 118/80
[2017-09-23 22:19] VITALS: BP 120/60
[2017-09-24 07:41] VITALS: BP 136/70
--- NOTE | 2017-09-24 08:05 | PN- Housestaff ---
BarryTati Del Alberto 09/24/17 0805: Subjective Follow-up For: Right lower extremity cellulitis Sepsis Chronic lymphedema Nephrotic syndrome on chronic steroids Chronic back pain on opiates Chronic hyponatremia Subjective: No complaint. Patient was happy about making progress with physical therapy and was able to walk around with computer assistant, and denied soreness feeling from RLE. c/ o of chronic pain from possible sciatica of her LLE but would not need treatment for now. Review of Systems Constitutional: Reports: see HPI. Objective Last 24 Hrs of Vital Signs/I&O Vital Signs Date Time Temp Pulse Resp B/P B/P Pulse O2 O2 Flow FiO2 Mean Ox Delivery Rate 09/24 0835 120/60 / 0741 97.3 90 20 136/70 95 Room Air 09/23 2219 98.0 86 20 120/60 98 Room Air 09/23 2137 98.8 86 20 120/60 09/23 1403 98.0 88 20 118/80 94 Room Air 09/23 1154 Room Air 09/23 1059 98.1 80 16 128/80 Intake & Output 09/24 1600 09/24 0800 09/24 0000 Intake Total 120 480 Output Total 100 Balance -100 120 480 Intake, Oral 120 480 Number 1 1 Bowel Movements Output, Urine 100 Physical Exam General Appearance: Alert, Oriented X3, Cooperative, No Acute Distress Cardiovascular: Regular Rate Lungs: Clear to Auscultation, Normal Air Movement Abdomen: Normal Bowel Sounds, Soft, No Tenderness Neurological: Normal Speech Extremities: RLE post-cellulitis with darken color without tenderness Current Medications: Current Medications Sig/Arsalan Start time Last Medication Dose Route Stop Time Status Admin Acetaminophen 1,000 MG Q6P PRN 09/19 0345 AC N/A 1 UNIT IV Acetaminophen 650 MG Q8P PRN 09/19 0245 AC PO Aspirin Buffered 81 MG QAM 09/19 1000 AC 09/24 PO 0835 Atorvastatin Calcium 40 MG 1700 09/19 1700 AC 09/23 PO 1630 Cephalexin 250 MG Q8 09/22 1400 AC 09/24 PO 0623 Diphenhydramine HCl 50 MG ONCE ONE 09/24 0100 DC 09/24 PO 09/24 0101 0049 Diphenhydramine HCl 50 MG ONCE ONE 09/24 0030 DC PO 09/24 0031 Diphenhydramine HCl 25 MG ONCE ONE 09/23 1930 DC 09/23 PO 09/23 193 194 Enoxaparin Sodium 40 MG DAILY 09/19 1000 DC 09/24 SC 0838 Ezetimibe 10 MG QPM 09/19 2200 AC 09/23 PO 2137 Famotidine 40 MG DAILY 09/19 1000 AC 09/24 PO 0835 Hydrocodone Bitart/ 1 TAB Q6P PRN 09/19 0330 AC 09/19 Acetaminophen PO 1405 Levothyroxine Sodium 0.05 MG DAILY AC 09/19 0700 AC 09/24 PO 0623 Metolazone 2.5 MG DAILY 09/19 1000 DC 09/23 PO 1102 Metoprolol Tartrate 50 MG BID 09/19 1000 AC 09/24 PO 0835 Phenytoin 200 MG BID 09/19 1000 AC 09/24 PO 0835 Prednisone 15 MG BID 09/24 1000 AC 09/24 PO 0836 Prednisone 20 MG BID 09/19 1000 DC 09/23 PO 09/23 2300 2137 Last 24 Hrs of Lab/Jeyson Results Last 24 Hrs of Labs/Mics: Laboratory Tests 09/24/17 0820: Anion Gap 11, Estimated GFR 11 L, BUN/Creatinine Ratio 13.8 Assessment/Plan Assessment: Ms. Curiel is a 76-year-old female with past medical history of hypertension, hyperlipidemia, peripheral vascular disease, seizure disorder, chronic lower extremity lymphedema, nephrotic syndrome (renal biopsy shows FSGS) on steroids and chronic lower back pain presenting for swelling, pain and redness of right lower extremity found to have cellulitis of the RLE #Nonpurulent right lower extremity cellulitis, resolving WBC 18.5 4 bands -> 14.3 w/ 12 bands -> 15.1 w/ no bands on latest lab. - Sepsis w/ >10% band (within 24hrs of admission), leukocytosis, and tachycardia >100 on presentation, however resolved with treatment now. D-Dimer 217 -> 439 Bcx negative thus far Venous doppler negative for DVT Arterial doppler: some peripheral vascular disease on RLE -Switched to Oral Keflex 250mg q8, currently day 6. Will complete 2 week course of treatment. - RLE appeared to be in chronic change from cellulitis without pain/elevated skin temp. Encouraged patient to try her best of OOB to chair. - Cultures negative so far. -Vascular surgery suggested no intervention at this time for PVD. -If patient becomes hypotensive consider IV steroids (stress dose) -f/u wound consult #Acute Kidney Injury (new onset 09/22/2017): Cr increased suddenly from 0.6 -> 2.0 -> 2.6 -> 3.9 on latest lab. likely 2/2 restart of lisinopril after 24hr urine collection. - Will hold lisinopril, spironolactone, and K (to avoid hyperkalemia in CRF). - Recheck BEP daily to trend Cr. #Chronic moderate hyponatremia Na 128 on admission -> 128 on latest lab -at baseline continue to monitor -1200ml fluid restriction per nephro -Zaroxolyn on hold as well #History of nephrotic syndrome - 24hr urine showed 12.6g protein, aligned with her underlying nephrotic symdrome. - f/u microalbumin/cr ratio - Hold lisinopril as above. - Continue home dose of PO prednisone (20 BID) - Continue Bactrim for PCP prophylaxis in context of chronic steroid use - If blood pressure drops consider IV steroid stress dose #Chronic lower extremity lymhedema - Leg elevation - Holding diuretics as above. #Chronic medical conditions: hyperlipidemia, GERD, HTN, hypothyroid, seizures and chronic back pain - continue Lipitor, Zetia, Pepcid, metoprolol and Vicodin, phenytoin, aspirin, levothyroxine #FULL CODE Heart Healthy Diet #lovenox Problem List: 1. Cellulitis 2. Nephrotic syndrome Pain Ratin Pain Location: NA Pain Goal: Remain pain free Pain Plan: see AP Tomorrow's Labs & Rationales: CBC/BEP Shani Mitchell MD 09/24/17 0937: Attending MD Review Statement Attending Statement Attending MD Statement: examined this patient, discuss w/resident/PA/DESIGN TECHNICIAN, agreed w/resident/PA/DESIGN TECHNICIAN, reviewed EMR data (avail), discussed with nursing, reviewed images Attending Assessment/Plan: Patient did extremely well with physical therapy today and walked all around the unit with a walker. PT says if she continues at this she likely can go home instead of rehabilitation. She is feeling okay and her edema appears to be at baseline. However her creatinine has jama further to 3.9 today. So it is essentially gone from 0.5-0.6 to now 3.9 in 48 hours. We are presuming this is a lisinopril induced as she got 2 doses of lisinopril and she could have underlying unilateral renal artery stenosis with secondary FSGS as a result of this. We are watching the creatinine closely and watching for any signs of acute kidney injury on chronic kidney disease in terms of volume overload, hyperkalemia or any such symptoms. I stopped the Lovenox due to the bleeding risk and switched her to Alps. And will follow-up closely with the creatinine and nephrology's recommendations. I think we can comfortably stop the antibiotics tomorrow she'll finish a seven-day course of antibiotics for cellulitis.
[2017-09-24 13:47] VITALS: BP 130/80
[2017-09-25 07:00] VITALS: BP 124/70
--- NOTE | 2017-09-25 08:50 | PN- Housestaff ---
Tati Reddy Del Alberto 09/25/17 0850: Subjective Follow-up For: Right lower extremity cellulitis Sepsis Chronic lymphedema Nephrotic syndrome on chronic steroids Chronic back pain on opiates Chronic hyponatremia Subjective: No overnight event. Patient had no specific complaint or discomfort. Would like to stay until her overall renal status recovers Review of Systems Constitutional: Reports: see HPI. Objective Last 24 Hrs of Vital Signs/I&O Vital Signs Date Time Temp Pulse Resp B/P B/P Pulse O2 O2 Flow FiO2 Mean Ox Delivery Rate 09/25 0754 124/70 09/25 0700 97.4 89 20 124/70 94 Room Air 09/24 2037 85 112/68 09/24 1347 98.0 96 20 130/80 95 Room Air Intake & Output 09/25 1600 09/25 0800 09/25 0000 Intake Total 120 600 Output Total 400 400 Balance -400 -280 600 Intake, Oral 120 600 Output, Urine 400 400 Physical Exam General Appearance: Alert, Oriented X3, Cooperative, No Acute Distress Cardiovascular: Regular Rate Lungs: Clear to Auscultation, Normal Air Movement Abdomen: Normal Bowel Sounds, Soft, No Tenderness Neurological: Normal Speech Extremities: No Edema, Normal Pulses, RLE cellulitis resolved without much physical findings. Current Medications: Current Medications Sig/Arsalan Start time Last Medication Dose Route Stop Time Status Admin Acetaminophen 1,000 MG Q6P PRN 09/19 0345 AC N/A 1 UNIT IV Acetaminophen 650 MG Q8P PRN 09/19 0245 AC PO Aspirin Buffered 81 MG QAM 09/19 1000 AC 09/25 PO 0754 Atorvastatin Calcium 40 MG 1700 09/19 1700 AC 09/24 PO 1615 Cephalexin 250 MG Q8 09/22 1400 AC 09/25 PO 09/25 1800 0549 Diphenhydramine HCl 1 FLETCHER Q6-PRN PRN 09/24 1945 AC 09/25 TOP 0430 Ezetimibe 10 MG QPM 09/19 2200 AC 09/24 PO 2037 Famotidine 40 MG DAILY 09/19 1000 AC 09/25 PO 0754 Guaifenesin 10 ML Q6P PRN 09/25 0415 AC 09/25 PO 0430 Hydrocodone Bitart/ 1 TAB Q6P PRN 09/19 0330 AC 09/19 Acetaminophen PO 1405 Levothyroxine Sodium 0.05 MG DAILY AC 09/19 0700 AC 09/25 PO 0549 Metoprolol Tartrate 50 MG BID 09/19 1000 AC 09/25 PO 0754 Phenytoin 200 MG BID 09/19 1000 AC 09/25 PO 0754 Prednisone 15 MG BID 09/24 1000 AC 09/25 PO 0754 Last 24 Hrs of Lab/Jeyson Results Last 24 Hrs of Labs/Mics: Laboratory Tests 09/25/17 0740: Anion Gap 10, Estimated GFR 9 L, BUN/Creatinine Ratio 12.8, CBC w Diff MAN DIFF ORDERED, RBC 3.09 L, MCV 100.1 H, MCH 34.4 H, MCHC 34.4, RDW 13.9, MPV 7.3 L , Gran % 82.3 H, Lymphocytes % 9.2 L, Monocytes % 7.2, Eosinophils % 1.1, Basophils % 0.2, Absolute Granulocytes 12.9 H, Segmented Neutrophils 69, Band Neutrophils 4, Absolute Lymphocytes 1.5, Lymphocytes 14 L, Monocytes 4, Absolute Monocytes 1.1 H, Eosinophils 1, Absolute Eosinophils 0.2, Absolute Basophils 0, Metamyelocytes 8 H, Normocytic RBCs VERIFIED, Normochromic RBCs VERIFIED Assessment/Plan Assessment: Ms. Curiel is a 76-year-old female with past medical history of hypertension, hyperlipidemia, peripheral vascular disease, seizure disorder, chronic lower extremity lymphedema, nephrotic syndrome (renal biopsy shows FSGS) on steroids and chronic lower back pain presenting for swelling, pain and redness of right lower extremity found to have cellulitis of the RLE #Nonpurulent right lower extremity cellulitis, resolving WBC 18.5 4 bands -> 14.3 w/ 12 bands -> 15.1 w/ no bands on latest lab. - Sepsis w/ >10% band (within 24hrs of admission), leukocytosis, and tachycardia >100 on presentation, however resolved with treatment now. D-Dimer 217 -> 439 Bcx negative thus far Venous doppler negative for DVT Arterial doppler: some peripheral vascular disease on RLE -Completed 7-day course of ABX (Cefazolin + Keflex). - RLE appeared to be in chronic change from cellulitis without pain/elevated skin temp. Encouraged patient to try her best of OOB to chair. - Cultures negative so far. -Vascular surgery suggested no intervention at this time for PVD. -If patient becomes hypotensive consider IV steroids (stress dose) -f/u wound consult #Acute Kidney Injury (new onset 09/22/2017): Cr increased suddenly from 0.6 -> 2.0 -> 2.6 -> 3.9 -> 4.6 on latest lab. likely 2/2 restart of lisinopril after 24hr urine collection, with L kidney KENNEDY. - Will hold lisinopril, spironolactone, and K (to avoid hyperkalemia in CRF). - Recheck BEP daily to trend Cr. #Chronic moderate hyponatremia Na 128 on admission -> 130 on latest lab -at baseline continue to monitor -1200ml fluid restriction per nephro -Zaroxolyn on hold as well #History of nephrotic syndrome - 24hr urine showed 12.6gm protein, aligned with her underlying nephrotic symdrome. - f/u microalbumin/cr ratio - Hold lisinopril as above. - Continue PO prednisone (15 BID) - Continue Bactrim for PCP prophylaxis in context of chronic steroid use - If blood pressure drops consider IV steroid stress dose #Chronic lower extremity lymhedema - Leg elevation - Holding diuretics as above. #Chronic medical conditions: hyperlipidemia, GERD, HTN, hypothyroid, seizures and chronic back pain - continue Lipitor, Zetia, Pepcid, metoprolol and Vicodin, phenytoin, aspirin, levothyroxine #FULL CODE Heart Healthy Diet #lovenox Problem List: 1. Nephrotic syndrome 2. Elevated serum creatinine Pain Ratin Pain Location: NA Pain Goal: Remain pain free Pain Plan: see AP Tomorrow's Labs & Rationales: BRIAN Mitchell MD,Shani 09/25/17 1013: Attending MD Review Statement Attending Statement Attending MD Statement: examined this patient, discuss w/resident/PA/JANITOR CARETAKER, agreed w/resident/PA/JANITOR CARETAKER, reviewed EMR data (avail), discussed with nursing, reviewed images Attending Assessment/Plan: Patient is now complaining of a dry cough. Otherwise she feels well. She has no shortness of breath. Her cellulitis marked appears markedly improved and I think we can comfortably stop the antibiotics given that she has finished a seven-day course. I am worried as now her creatinine is up to 4.6. This rise in creatinine is very rapid over the last 48 hours and attributed to 2 doses of lisinopril given to her. We think that she may have renal artery stenosis that has prompted this acute kidney injury and that her FSGS underlying may be secondary FSGS. We'll get a chest x-ray to make sure there is no volume overload and no other cause of the dry cough. Will notify renal about the creatinine of 4.6. She doesn't appear clinically volume overloaded, she's not hyperkalemic. Her Lasix and metolazone remain on hold. She remains on the prednisone, which she is on a taper for for this nephrotic syndrome associated with FSGS and as such her white count is hard to interpret and will follow closely.
[2017-09-25 09:23] LABS: ABSOLUTE BASOPHIL COUNT 0 /CUMM (0.0-0.2); ABSOLUTE EOSINOPHIL COUNT 0.2 /CUMM (0.0-0.7); ABSOLUTE GRANULOCYTE CT 12.9 /CUMM (1.4-6.5); ABSOLUTE LYMPH COUNT 1.5 /CUMM (1.2-3.4); ABSOLUTE MONOCYTE COUNT 1.1 /CUMM (0.10-0.60); BASOPHIL % 0.2 % (0.0-2.0); EOSINOPHIL % 1.1 % (0-5); GRANULOCYTE % 82.3 % (42.2-75.2); MEAN CORPUSCULAR HGB 34.4 PG (27.0-31.0); MEAN CORPUSCULAR HGB CONC 34.4 G/DL (33.0-37.0); MEAN CORPUSCULAR VOLUME 100.1 FL (81.0-99.0); MEAN PLATELET VOLUME 7.3 FL (7.4-10.4); PLATELET COUNT 495 /CUMM (130-400); RBC DISTRIBUTION WIDTH 13.9 % (11.5-14.5); RED BLOOD CELL CT 3.09 /CUMM (4.20-5.40); WHITE BLOOD CELL COUNT 15.7 /CUMM (4.8-10.8)
[2017-09-25 13:48] VITALS: BP 118/90
--- NOTE | 2017-09-25 18:37 | RADIOLOGY REPORT ---
EXAMINATION: XR CHEST CLINICAL INFORMATION: Volume overload. Dry cough. COMPARISON: Prior chest May 2017 TECHNIQUE: 2 views of the chest were obtained. FINDINGS: There are small bilateral pleural effusions There is additional linear opacity at the left base compatible discoid atelectasis. The cardiac silhouette mediastinum pulmonary vascularity are normal. Lung volumes decreased likely due to suboptimal inspiration. IMPRESSION: Small bilateral pleural effusions new compared to the most recent chest x-ray. Atelectasis left base.
[2017-09-25 20:37] VITALS: BP 114/66
[2017-09-26 06:20] VITALS: BP 130/64
--- NOTE | 2017-09-26 07:46 | PN- Housestaff ---
BarryTati 09/26/17 0746: Subjective Follow-up For: Right lower extremity cellulitis Sepsis Chronic lymphedema Nephrotic syndrome on chronic steroids Chronic back pain on opiates Chronic hyponatremia Subjective: No overnight event. Endorsed some dry cough unchanged from yesterday. Acknowledged about her CXR with pleural effusion. Otherwise specific complaint, and concerned about whether she could make to her vacation by the end of Sep. Review of Systems Constitutional: Reports: see HPI. Objective Last 24 Hrs of Vital Signs/I&O Vital Signs Date Time Temp Pulse Resp B/P B/P Pulse O2 O2 Flow FiO2 Mean Ox Delivery Rate 09/26 619 98.7 88 18 130/64 95 Room Air 09/25 2036 98.2 92 18 114/66 95 Room Air 09/25 2035 92 114/66 09/25 1600 Room Air 09/25 1348 98.0 80 18 118/90 98 Room Air Intake & Output 09/26 1600 09/26 0800 09/26 0000 Intake Total 30 600 Output Total 1050 Balance -1020 600 Intake, Oral 30 600 Number 0 Bowel Movements Output, Urine 1050 Physical Exam General Appearance: Alert, Oriented X3, Cooperative, No Acute Distress Cardiovascular: Regular Rate Lungs: Normal Air Movement Abdomen: Normal Bowel Sounds, Soft, No Tenderness Neurological: Normal Speech Extremities: No Edema, Normal Pulses Current Medications: Current Medications Sig/Arsalan Start time Last Medication Dose Route Stop Time Status Admin Acetaminophen 1,000 MG Q6P PRN 09/19 0345 AC N/A 1 UNIT IV Acetaminophen 650 MG Q8P PRN 09/19 0245 AC PO Aspirin Buffered 81 MG QAM 09/19 1000 AC 09/25 PO 0754 Atorvastatin Calcium 40 MG 1700 09/19 1700 AC 09/25 PO 1628 Cephalexin 250 MG Q8 09/22 1400 DC 09/25 PO 09/25 1800 1428 Diphenhydramine HCl 1 FLETCHER Q6-PRN PRN 09/24 1945 AC 09/25 TOP 0430 Ezetimibe 10 MG QPM 09/19 2200 AC 09/25 PO 2035 Famotidine 40 MG DAILY 09/19 1000 AC 09/25 PO 0754 Guaifenesin 10 ML Q6P PRN 09/25 0415 AC 09/25 PO 0430 Hydrocodone Bitart/ 1 TAB Q6P PRN 09/19 0330 DC 09/19 Acetaminophen PO 1405 Levothyroxine Sodium 0.05 MG DAILY AC 09/19 0700 AC 09/26 PO 0649 Metoprolol Tartrate 50 MG BID 09/19 1000 AC 09/25 PO 2035 Phenytoin 200 MG BID 09/19 1000 AC 09/25 PO 2035 Prednisone 15 MG BID 09/24 1000 AC 09/25 PO 2035 Assessment/Plan Assessment: Ms. Curiel is a 76-year-old female with past medical history of hypertension, hyperlipidemia, peripheral vascular disease, seizure disorder, chronic lower extremity lymphedema, nephrotic syndrome (renal biopsy shows FSGS) on steroids and chronic lower back pain presenting for swelling, pain and redness of right lower extremity found to have cellulitis of the RLE #Nonpurulent right lower extremity cellulitis, resolving WBC 18.5 4 bands -> 14.3 w/ 12 bands -> 15.1 w/ no bands on latest lab. - Sepsis w/ >10% band (within 24hrs of admission), leukocytosis, and tachycardia >100 on presentation, however resolved with treatment now. D-Dimer 217 -> 439 Bcx negative thus far Venous doppler negative for DVT Arterial doppler: some peripheral vascular disease on RLE -Completed 7-day course of ABX (Cefazolin + Keflex). - RLE appeared to be in chronic change from cellulitis without pain/elevated skin temp. Encouraged patient to try her best of OOB to chair. - Cultures negative so far. -Vascular surgery suggested no intervention at this time for PVD. -If patient becomes hypotensive consider IV steroids (stress dose) -f/u wound consult #Acute Kidney Injury (new onset 09/22/2017): Cr increased suddenly from 0.6 -> 2.0 -> 2.6 -> 3.9 -> 4.6 -> 4.3 on latest lab. likely 2/2 restart of lisinopril after 24hr urine collection, with L kidney KENNEDY. - Will hold lisinopril, spironolactone, and K (to avoid hyperkalemia in CRF). - Recheck BEP daily to trend Cr. - Will restart Lasix 40mg qd -> increased to 80mg qd tomorrow - Will discuss with Renal regarding prednisone tapering and bactrim ppx. #Chronic moderate hyponatremia Na 128 on admission -> 130 on latest lab -at baseline continue to monitor -1200ml fluid restriction per nephro -Zaroxolyn on hold as well #History of nephrotic syndrome - 24hr urine showed 12.6gm protein, aligned with her underlying nephrotic symdrome. - f/u microalbumin/cr ratio - Hold lisinopril as above. - Continue PO prednisone (15 BID) - Continue Bactrim for PCP prophylaxis in context of chronic steroid use - If blood pressure drops consider IV steroid stress dose #Chronic lower extremity lymhedema - Leg elevation - Holding diuretics as above. #Chronic medical conditions: hyperlipidemia, GERD, HTN, hypothyroid, seizures and chronic back pain - continue Lipitor, Zetia, Pepcid, metoprolol and Vicodin, phenytoin, aspirin, levothyroxine #FULL CODE Heart Healthy Diet #lovenox Problem List: 1. Elevated serum creatinine 2. Nephrotic syndrome Pain Ratin Pain Location: NA Pain Goal: Remain pain free Pain Plan: see AP Tomorrow's Labs & Rationales: BEP/CBC LeopoldoEneida 09/26/17 1158: Attending MD Review Statement Attending Statement Attending MD Statement: examined this patient, discuss w/resident/PA/GRIT BLASTER, agreed w/resident/PA/GRIT BLASTER, discussed with family, reviewed EMR data (avail), discussed with nursing, discussed with case mgmt, reviewed images, amended to note Attending Assessment/Plan: 76 yo F with h/o HTN, PVD, chronic lymphedema, nephrotic syndrome (renal biopsy shows FSGS) on steroids, chronic back pain, seizure disorder, nonobstructive CAD , is here for evaluation of right lower extremity redness, tender , warmth admitted for cellulitis (Also had vascular procedure) now developed acute kidney injury with lisinopril challenge and rule out underlying renal artery stenosis. Patient seen/examined bedside. Chest xray with b/l pleural effusion small in amount. Watch for fluid overlaod, Cr plateu today. Assessment and plan: 1. Right lower extremity cellulitis with improvement 2. Sepsis resoved 3. Chronic lymphedema 4. Nephrotic syndrome on chronic steroids 5. Chronic back pain on opiates 6. Chronic hyponatremia 7. ANURAG with luis miguel inhibitor challenge 8. ??Possible renal artery stenosis. - Monitor for fluid overlaod, Creatinine function. F/u nephrology. LUIS MIGUEL inhibitor discontinue alongwith diuretics. Plan is to resume diuretics as per nephrology. - f/u Vascular consult recommend no intervention inpatient. - Pain management. - continue outpatient prednisone. - dc planning based on PT recommendations. - gi/dvt prophyalxis plan of care d/wed patient bedside.
[2017-09-26 10:27] LABS: ABSOLUTE BASOPHIL COUNT 0 /CUMM (0.0-0.2); ABSOLUTE EOSINOPHIL COUNT 0.2 /CUMM (0.0-0.7); BASOPHIL % 0.1 % (0.0-2.0); MEAN CORPUSCULAR VOLUME 101.3 FL (81.0-99.0)
[2017-09-26 11:04] LABS: ABSOLUTE GRANULOCYTE CT 13.7 /CUMM (1.4-6.5); ABSOLUTE LYMPH COUNT 1.6 /CUMM (1.2-3.4); ABSOLUTE MONOCYTE COUNT 0.9 /CUMM (0.10-0.60); EOSINOPHIL % 1.3 % (0-5); GRANULOCYTE % 83.6 % (42.2-75.2); MEAN CORPUSCULAR HGB CONC 33.5 G/DL (33.0-37.0); MEAN PLATELET VOLUME 7.2 FL (7.4-10.4); PLATELET COUNT 608 /CUMM (130-400); RBC DISTRIBUTION WIDTH 14.3 % (11.5-14.5); RED BLOOD CELL CT 3.58 /CUMM (4.20-5.40); WHITE BLOOD CELL COUNT 16.4 /CUMM (4.8-10.8)
[2017-09-26 11:19] LABS: HEMATOCRIT 36.3 % (37-47)
--- NOTE | 2017-09-26 11:41 | PN- Nephrology ---
Assessment/Plan Assessment: FSGS. ANURAG most likely due to lisinopril. Cr finally plateauing and should fall next few days. continue to monitor daily renal function. Volume appears okay. Philippe Márquez MD. Suggestion: . Subjective Subjective: Pt comfortable . Cr jama to 4.6 yesterday 4.3 today. Objective Vital Signs and I&Os F NAD 130/70 88 98.7 Lungs clear Cor RRR Abd soft Ext 1+edema Results Pertinent Lab Results: Laboratory Tests 09/26 09/25 09/24 0849 0740 0820 Chemistry Sodium (137 - 145 mmol/L) 134 L 130 L 128 L Potassium (3.5 - 5.1 mmol/L) 4.8 5.0 5.0 Chloride (98 - 107 mmol/L) 96 L 93 L 90 L Carbon Dioxide (22 - 30 mmol/L) 27 26 27 Anion Gap (5 - 16) 11 10 11 BUN (7 - 17 mg/dL) 68 H 59 H 54 H Creatinine (0.5 - 1.0 mg/dL) 4.3 H 4.6 H 3.9 H Estimated GFR (>60 ml/min) 10 L 9 L 11 L BUN/Creatinine Ratio (7 - 25 %) 15.8 12.8 13.8 Hematology CBC w Diff Pending MAN DIFF ORDERED WBC (4.8 - 10.8 /CUMM) Pending 15.7 H RBC (4.20 - 5.40 /CUMM) Pending 3.09 L Hgb (12.0 - 16.0 G/DL) Pending 10.6 L Hct (37 - 47 %) Pending 31.0 L MCV (81.0 - 99.0 FL) Pending 100.1 H MCH (27.0 - 31.0 PG) Pending 34.4 H MCHC (33.0 - 37.0 G/DL) Pending 34.4 RDW (11.5 - 14.5 %) Pending 13.9 Plt Count (130 - 400 /CUMM) Pending 495 H MPV (7.4 - 10.4 FL) Pending 7.3 L Gran % (42.2 - 75.2 %) Pending 82.3 H Lymphocytes % (20.5 - 51.1 %) Pending 9.2 L Monocytes % (1.7 - 9.3 %) Pending 7.2 Eosinophils % (0 - 5 %) Pending 1.1 Basophils % (0.0 - 2.0 %) Pending 0.2 Absolute Granulocytes (1.4 - 6.5 /CUMM) Pending 12.9 H Segmented Neutrophils (42.2 - 75.2 %) 69 Band Neutrophils (0.0 - 5.0 %) 4 Absolute Lymphocytes (1.2 - 3.4 /CUMM) Pending 1.5 Lymphocytes (20.5 - 51.1 %) 14 L Monocytes (1.7 - 9.3 %) 4 Absolute Monocytes (0.10 - 0.60 /CUMM) Pending 1.1 H Eosinophils (0 - 5.0 %) 1 Absolute Eosinophils (0.0 - 0.7 /CUMM) Pending 0.2 Absolute Basophils (0.0 - 0.2 /CUMM) Pending 0 Metamyelocytes (0.0 - 1.0 %) 8 H Normocytic RBCs VERIFIED Normochromic RBCs VERIFIED
[2017-09-26 14:24] VITALS: BP 140/70
[2017-09-26 22:50] VITALS: BP 150/72
[2017-09-27 06:20] VITALS: BP 138/74
--- NOTE | 2017-09-27 08:19 | PN- Housestaff ---
BarryTati 09/27/17 0816: Subjective Follow-up For: Right lower extremity cellulitis Sepsis Chronic lymphedema Nephrotic syndrome on chronic steroids Chronic back pain on opiates Chronic hyponatremia Subjective: No overnight event. Patient was eating breakfast when I entered. Acknowledged that we will try lasix at her full dose today. No specific complaint. Review of Systems Constitutional: Reports: see HPI. Objective Last 24 Hrs of Vital Signs/I&O Vital Signs Date Time Temp Pulse Resp B/P B/P Pulse O2 O2 Flow FiO2 Mean Ox Delivery Rate 09/27 06 98.2 84 18 138/74 95 Room Air 09/26 2250 98.0 82 20 150/72 97 Room Air 09/26 2222 82 150/72 09/26 1424 98.2 85 20 140/70 97 09/26 1218 Room Air 09/26 0953 130/70 Intake & Output 09/27 1600 09/27 0800 09/27 0000 Intake Total 50 400 Output Total 850 250 Balance -800 150 Intake, Oral 50 400 Number 0 1 Bowel Movements Output, Urine 850 250 Physical Exam General Appearance: Alert, Oriented X3, Cooperative, No Acute Distress Cardiovascular: Regular Rate Lungs: Clear to Auscultation, Normal Air Movement Abdomen: Normal Bowel Sounds, Soft, No Tenderness Neurological: Normal Speech Extremities: No Cyanosis, No Edema, Normal Pulses Current Medications: Current Medications Sig/Arsalan Start time Last Medication Dose Route Stop Time Status Admin Acetaminophen 1,000 MG Q6P PRN 09/19 0345 AC N/A 1 UNIT IV Acetaminophen 650 MG Q8P PRN 09/19 0245 AC PO Aspirin Buffered 81 MG QAM 09/19 1000 AC 09/26 PO 0953 Atorvastatin Calcium 40 MG 1700 09/19 1700 AC 09/26 PO 1657 Diphenhydramine HCl 1 FLETCHER Q6-PRN PRN 09/24 1945 AC 09/25 TOP 0430 Ezetimibe 10 MG QPM 09/19 2200 AC 09/26 PO 2221 Famotidine 40 MG DAILY 09/19 1000 AC 09/26 PO 0953 Furosemide 40 MG .STK-MED ONE 09/26 1426 DC PO 09/26 1427 Furosemide 40 MG DAILY 09/26 1400 AC 09/26 PO 1428 Guaifenesin 10 ML Q6P PRN 09/25 0415 AC 09/25 PO 0430 Levothyroxine Sodium 0.05 MG DAILY AC 09/19 0700 AC 09/27 PO 0548 Metoprolol Tartrate 50 MG BID 09/19 1000 AC 09/26 PO 2222 Phenytoin 200 MG BID 09/19 1000 AC 09/26 PO 2222 Prednisone 15 MG BID 09/26 2200 AC 09/26 PO 2222 Prednisone 15 MG BID 09/24 1000 DC 09/26 PO 0954 Last 24 Hrs of Lab/Jeyson Results Last 24 Hrs of Labs/Mics: Laboratory Tests 09/26/17 0849: Anion Gap 11, Estimated GFR 10 L, BUN/Creatinine Ratio 15.8, CBC w Diff MAN DIFF ORDERED, RBC 3.58 L, MCV 101.3 H, MCH 34.0 H, MCHC 33.5, RDW 14.3, MPV 7.2 L, Gran % 83.6 H, Lymphocytes % 9.6 L, Monocytes % 5.4, Eosinophils % 1.3 , Basophils % 0.1, Absolute Granulocytes 13.7 H, Segmented Neutrophils 73, Band Neutrophils 2, Absolute Lymphocytes 1.6, Lymphocytes 10 L, Monocytes 9, Absolute Monocytes 0.9 H, Absolute Eosinophils 0.2, Absolute Basophils 0, Metamyelocytes 2 H, Myelocytes 4 H, Platelet Estimate INCREASED, Normochromic RBCs VERIFIED, Macrocytic Cells 1+ Assessment/Plan Assessment: Ms. Curiel is a 76-year-old female with past medical history of hypertension, hyperlipidemia, peripheral vascular disease, seizure disorder, chronic lower extremity lymphedema, nephrotic syndrome (renal biopsy shows FSGS) on steroids and chronic lower back pain presenting for swelling, pain and redness of right lower extremity found to have cellulitis of the RLE #Nonpurulent right lower extremity cellulitis, resolving WBC 18.5 4 bands -> 14.3 w/ 12 bands -> 15.1 w/ no bands on latest lab. - Sepsis w/ >10% band (within 24hrs of admission), leukocytosis, and tachycardia >100 on presentation, however resolved with treatment now. D-Dimer 217 -> 439 Bcx negative thus far Venous doppler negative for DVT Arterial doppler: some peripheral vascular disease on RLE -Completed 7-day course of ABX (Cefazolin + Keflex). - RLE appeared to be in chronic change from cellulitis without pain/elevated skin temp. Encouraged patient to try her best of OOB to chair. - Cultures negative so far. -Vascular surgery suggested no intervention at this time for PVD. -If patient becomes hypotensive consider IV steroids (stress dose) -f/u wound consult #Acute Kidney Injury from use of Lisinopril (new onset 09/22/2017): Cr increased suddenly from 0.6 -> 2.0 -> 2.6 -> 3.9 -> 4.6 -> 4.3 -> 4.6 on latest lab. likely 2/2 restart of lisinopril after 24hr urine collection, with L kidney KENNEDY. - Will hold lisinopril, spironolactone, and K (to avoid hyperkalemia in CRF). - Recheck BEP daily to trend Cr. - Continued on Lasix 40mg qd as patient's Cr creep up to 4.6 again, however appeared borderline stable from 2 days before, would reassess Cr in the AM. - Will discuss with Renal regarding prednisone tapering and bactrim ppx. #Chronic moderate hyponatremia Na 128 on admission -> 135 on latest lab -at baseline continue to monitor -1200ml fluid restriction per nephro. -Zaroxolyn on hold as well #History of nephrotic syndrome - 24hr urine showed 12.6gm protein, aligned with her underlying nephrotic symdrome. - f/u microalbumin/cr ratio - Hold lisinopril as above. - Continue PO prednisone (15 BID) - Continue Bactrim for PCP prophylaxis in context of chronic steroid use - If blood pressure drops consider IV steroid stress dose #Chronic lower extremity lymhedema - Leg elevation - Holding diuretics as above. #Chronic medical conditions: hyperlipidemia, GERD, HTN, hypothyroid, seizures and chronic back pain - continue Lipitor, Zetia, Pepcid, metoprolol and Vicodin, phenytoin, aspirin, levothyroxine #FULL CODE Heart Healthy Diet #lovenox Problem List: 1. Elevated serum creatinine 2. Nephrotic syndrome 3. Hyponatremia Pain Ratin Pain Location: NA Pain Goal: Remain pain free Pain Plan: see AP Tomorrow's Labs & Rationales: Eneida Lundberg 09/27/17 1245: Attending Review Statement Attending Statement Attending MD Statement: examined this patient, discuss w/resident/PA/RABBIT BREEDER, agreed w/resident/PA/RABBIT BREEDER, discussed with family, reviewed EMR data (avail), discussed with nursing, discussed with case mgmt, reviewed images, amended to note Attending Assessment/Plan: 76 yo F with h/o HTN, PVD, chronic lymphedema, nephrotic syndrome (renal biopsy shows FSGS) on steroids, chronic back pain, seizure disorder, nonobstructive CAD , is here for evaluation of right lower extremity redness, tender , warmth admitted for cellulitis (Also had vascular procedure) now developed acute kidney injury with lisinopril challenge and rule out underlying renal artery stenosis. Patient seen/examined bedside. Denies any new complaints, Watch for fluid overlaod, Cr 4.6 today. Assessment and plan: 1. Right lower extremity cellulitis with improvement 2. Sepsis resoved 3. Chronic lymphedema 4. Nephrotic syndrome on chronic steroids 5. Chronic back pain on opiates 6. Chronic hyponatremia 7. ANURAG with luis miguel inhibitor challenge 8. ??Possible renal artery stenosis. - Monitor for fluid overlaod, Creatinine function. F/u nephrology. LUIS MIGUEL inhibitor discontinue alongwith diuretics. Plan is to resume diuretics as per nephrology. Started lasix 40 mg daily, titrate as per nephro. - f/u Vascular consult recommend no intervention inpatient. - Pain management. - continue outpatient prednisone. - dc planning based on PT recommendations and nephrology. - gi/dvt prophyalxis
[2017-09-27 09:47] LABS: ABSOLUTE BASOPHIL COUNT 0 /CUMM (0.0-0.2); ABSOLUTE EOSINOPHIL COUNT 0.1 /CUMM (0.0-0.7); ABSOLUTE GRANULOCYTE CT 13.9 /CUMM (1.4-6.5); ABSOLUTE LYMPH COUNT 1.2 /CUMM (1.2-3.4); ABSOLUTE MONOCYTE COUNT 0.8 /CUMM (0.10-0.60); BASOPHIL % 0.1 % (0.0-2.0); EOSINOPHIL % 0.5 % (0-5); HEMATOCRIT 33.5 % (37-47); MEAN CORPUSCULAR HGB 34.5 PG (27.0-31.0); MEAN CORPUSCULAR HGB CONC 34.1 G/DL (33.0-37.0); MEAN CORPUSCULAR VOLUME 101.2 FL (81.0-99.0); PLATELET COUNT 677 /CUMM (130-400); RBC DISTRIBUTION WIDTH 13.6 % (11.5-14.5); RED BLOOD CELL CT 3.31 /CUMM (4.20-5.40); WHITE BLOOD CELL COUNT 16.1 /CUMM (4.8-10.8)
--- NOTE | 2017-09-27 09:59 | PN- Nephrology ---
Assessment/Plan Assessment: FSGS. ANURAG most likely due to lisinopril. Cr finally plateauing Await today's labs. Expect Cr to be < 4. If so could increase lasix to 80. Philippe Márquez MD. Suggestion: . Subjective Subjective: Pt feels well. Cr pending. restarted on low dose lasix. Objective Vital Signs and I&Os Pleasant F NAD 138/74 84 98.2 Lungs clear Cor RRR Abd soft Ext 2+edema Results Pertinent Lab Results: Todays labs pending
[2017-09-27 10:46] LABS: GRANULOCYTE % 86.7 % (42.2-75.2)
[2017-09-27 13:57] VITALS: BP 130/60
[2017-09-27 20:25] VITALS: BP 130/70
[2017-09-27 23:22] VITALS: BP 130/70
[2017-09-28 06:08] VITALS: BP 138/62
--- NOTE | 2017-09-28 07:30 | PN- Housestaff ---
BarryTati 09/28/1730: Subjective Follow-up For: Right lower extremity cellulitis Sepsis Chronic lymphedema Nephrotic syndrome on chronic steroids Chronic back pain on opiates Chronic hyponatremia Subjective: No overnight event. Patient had no specific complaint and stated that she is working out everyday with physical therapy. Review of Systems Constitutional: Reports: see HPI. Objective Last 24 Hrs of Vital Signs/I&O Vital Signs Date Time Temp Pulse Resp B/P B/P Pulse O2 O2 Flow FiO2 Mean Ox Delivery Rate 09/28 607 97.8 80 20 138/62 95 Room Air 09/27 2322 98.8 96 20 130/70 97 Room Air 09/27 2024 98.8 97 18 130/70 96 Room Air 09/27 202 97 130/70 09/27 1357 97.8 84 20 130/60 94 Room Air 09/27 1143 Room Air 09/27 1032 84 138/74 Intake & Output 09/28 1600 09/28 0800 09/28 0000 Intake Total 30 600 Output Total 300 Balance -270 600 Intake, Oral 30 600 Output, Urine 300 Physical Exam General Appearance: Alert, Oriented X3, Cooperative, No Acute Distress Cardiovascular: Regular Rate Lungs: Clear to Auscultation, Normal Air Movement Abdomen: Normal Bowel Sounds, Soft, No Tenderness Neurological: Normal Speech Extremities: No Edema, Normal Pulses Current Medications: Current Medications Sig/Arsalan Start time Last Medication Dose Route Stop Time Status Admin Acetaminophen 1,000 MG Q6P PRN 09/19 0345 AC N/A 1 UNIT IV Acetaminophen 650 MG Q8P PRN 09/19 0245 AC PO Aspirin Buffered 81 MG QAM 09/19 1000 AC 09/27 PO 1033 Atorvastatin Calcium 40 MG 1700 09/19 1700 AC 09/27 PO 1543 Diphenhydramine HCl 1 FLETCHER Q6-PRN PRN 09/24 1945 AC 09/25 TOP 0430 Ezetimibe 10 MG QPM 09/19 2200 AC 09/27 PO 2024 Famotidine 40 MG DAILY 09/19 1000 AC 09/27 PO 1032 Furosemide 40 MG DAILY 09/26 1400 AC 09/27 PO 1032 Guaifenesin 10 ML Q6P PRN 09/25 0415 AC 09/25 PO 0430 Levothyroxine Sodium 0.05 MG DAILY AC 09/19 0700 AC 09/28 PO 0657 Metoprolol Tartrate 50 MG BID 09/19 1000 AC 09/27 PO 2023 Patient Medication 1 ED ONE ONE 09/27 1245 DC Teaching ED 09/27 1246 Phenytoin 200 MG BID 09/19 1000 AC 09/27 PO 2023 Prednisone 15 MG BID 09/26 2200 AC 09/27 PO 2023 Last 24 Hrs of Lab/Jeyson Results Last 24 Hrs of Labs/Mics: Laboratory Tests 09/27/17 0835: Anion Gap 14, Estimated GFR 9 L, BUN/Creatinine Ratio 15.2, CBC w Diff NO MAN DIFF REQ, RBC 3.31 L, MCV 101.2 H, MCH 34.5 H, MCHC 34.1, RDW 13.6, MPV 7.0 L, Gran % 86.7 H, Lymphocytes % 7.8 L, Monocytes % 4.9, Eosinophils % 0.5, Basophils % 0.1, Absolute Granulocytes 13.9 H, Absolute Lymphocytes 1.2, Absolute Monocytes 0.8 H, Absolute Eosinophils 0.1, Absolute Basophils 0 Assessment/Plan Assessment: Ms. Curiel is a 76-year-old female with past medical history of hypertension, hyperlipidemia, peripheral vascular disease, seizure disorder, chronic lower extremity lymphedema, nephrotic syndrome (renal biopsy shows FSGS) on steroids and chronic lower back pain presenting for swelling, pain and redness of right lower extremity found to have cellulitis of the RLE #Nonpurulent right lower extremity cellulitis, resolving WBC 18.5 4 bands -> 14.3 w/ 12 bands -> 15.1 w/ no bands on latest lab. - Sepsis w/ >10% band (within 24hrs of admission), leukocytosis, and tachycardia >100 on presentation, however resolved with treatment now. D-Dimer 217 -> 439 Bcx negative thus far Venous doppler negative for DVT Arterial doppler: some peripheral vascular disease on RLE -Completed 7-day course of ABX (Cefazolin + Keflex). - RLE appeared to be in chronic change from cellulitis without pain/elevated skin temp. Encouraged patient to try her best of OOB to chair. - Cultures negative so far. -Vascular surgery suggested no intervention at this time for PVD. -If patient becomes hypotensive consider IV steroids (stress dose) -f/u wound consult #Acute Kidney Injury from use of Lisinopril (new onset 09/22/2017): Cr increased suddenly from 0.6 -> 2.0 -> 2.6 -> 3.9 -> 4.6 -> 4.3 -> 4.6 -> 4.1 on latest lab. likely 2/2 restart of lisinopril after 24hr urine collection, with L kidney KENNEDY. - Will hold lisinopril, spironolactone, and K (to avoid hyperkalemia in CRF). - Recheck BEP daily to trend Cr. - Would increase Lasix to 80mg daily (patient's home lasix dose) today and monitor Cr in the AM. if continue to fall, will discharge to outpatient nephro follow up. - Would discuss with Renal regarding prednisone tapering and bactrim ppx, may as well defer to outpatient. #Chronic moderate hyponatremia Na 128 on admission -> 135 on latest lab -at baseline continue to monitor -1200ml fluid restriction per nephro. Patient's compliance has been excellent. -Zaroxolyn on hold as well #History of nephrotic syndrome - 24hr urine showed 12.6gm protein, aligned with her underlying nephrotic symdrome. - f/u microalbumin/cr ratio - Hold lisinopril as above. - Continue PO prednisone (15 BID), pending nephro input as above. - Continue Bactrim for PCP prophylaxis in context of chronic steroid use - If blood pressure drops consider IV steroid stress dose #Chronic lower extremity lymhedema - Leg elevation - Holding diuretics/renal meds as above. #Chronic medical conditions: hyperlipidemia, GERD, HTN, hypothyroid, seizures and chronic back pain - continue Lipitor, Zetia, Pepcid, metoprolol and Vicodin, phenytoin, aspirin, levothyroxine #FULL CODE Heart Healthy Diet #lovenox Problem List: 1. Elevated serum creatinine 2. Nephrotic syndrome Pain Ratin Pain Location: NA Pain Goal: Remain pain free Pain Plan: see AP Tomorrow's Labs & Rationales: Eneida Lundberg 09/28/17 1251: Attending MD Review Statement Attending Statement Attending MD Statement: examined this patient, discuss w/resident/PA/CONVEYOR TECHNICIAN, agreed w/resident/PA/CONVEYOR TECHNICIAN, discussed with family, reviewed EMR data (avail), discussed with nursing, discussed with case mgmt, reviewed images, amended to note Attending Assessment/Plan: 76 yo F with h/o HTN, PVD, chronic lymphedema, nephrotic syndrome (renal biopsy shows FSGS) on steroids, chronic back pain, seizure disorder, nonobstructive CAD , is here for evaluation of right lower extremity redness, tender , warmth admitted for cellulitis (Also had vascular procedure) now developed acute kidney injury with lisinopril challenge and rule out underlying renal artery stenosis. Patient seen/examined bedside. Denies any new complaints, Watch for fluid overlaod, Cr 4.1 today. Assessment and plan: 1. Right lower extremity cellulitis with improvement 2. Sepsis resoved 3. Chronic lymphedema 4. Nephrotic syndrome on chronic steroids 5. Chronic back pain on opiates 6. Chronic hyponatremia 7. ANURAG with luis miguel inhibitor challenge 8. ??Possible renal artery stenosis. - Monitor for fluid overlaod, Creatinine function. F/u nephrology. LUIS MIGUEL inhibitor discontinue alongwith diuretics. Resumed diuretics as per nephrology. Titrate lasix as per nephro. - f/u Vascular consult recommend no intervention inpatient. - Pain management. - continue outpatient prednisone. Taper steroids as per nephro. - dc planning based on PT recommendations and nephrology. - gi/dvt prophyalxis - anticipate dc once creatinine function improves.
--- NOTE | 2017-09-28 09:16 | PN- Nephrology ---
Assessment/Plan Assessment: FSGS. ANURAG most likely due to lisinopril. Cr finally plateauing Await today's labs. Increase lasix when Cr starts to fall Philippe Márquez MD. Suggestion: . Subjective Subjective: Pt comfortable Cr pending from today (was 4.6 yesterday) Objective Vital Signs and I&Os F NAD 138/62 80 97.8 Lungs clear Cor RRR Abd soft Ext 2+edema Results Pertinent Lab Results: labs pending
[2017-09-28 14:40] VITALS: BP 128/60
[2017-09-28] MEDS ORDERED: PREDNISONE5 M1 PO (15:34)
[2017-09-28 22:39] VITALS: BP 150/70
[2017-09-29 07:34] VITALS: BP 140/80
--- NOTE | 2017-09-29 08:00 | PN- Housestaff ---
BarryTati 09/29/17 0758: Subjective Follow-up For: ANURAG resolving Chronic lymphedema Nephrotic syndrome on chronic steroids Chronic back pain on opiates Chronic hyponatremia Subjective: No overnight event. patient was eating breakfast when I entered. No specific complaint. Last night patient had some redness of RLE however no tenderness/ elevation of skin temp. Review of Systems Constitutional: Reports: see HPI. Objective Last 24 Hrs of Vital Signs/I&O Vital Signs Date Time Temp Pulse Resp B/P B/P Pulse O2 O2 Flow FiO2 Mean Ox Delivery Rate 09/29 0734 97.7 87 18 140/80 96 Room Air 09/28 2239 98.1 84 18 150/70 95 Room Air 09/28 2033 66 118/74 09/28 1440 96.7 80 18 128/60 95 09/28 1026 88 148/68 09/28 0953 Room Air 09/28 0800 Room Air Intake & Output 09/29 0800 09/29 0000 09/28 1600 Intake Total 30 600 591 Output Total 400 250 Balance -370 600 341 Intake, IV 0 Intake, Oral 30 600 591 Number 1 Bowel Movements Output, Urine 400 250 Physical Exam General Appearance: Alert, Oriented X3, Cooperative, No Acute Distress Cardiovascular: Regular Rate, Normal S1, Normal S2 Lungs: Clear to Auscultation, Normal Air Movement Abdomen: Soft, No Tenderness Neurological: Normal Speech Extremities: RLE chronic lymphedematous look with chronic deeper color Current Medications: Current Medications Sig/Arsalan Start time Last Medication Dose Route Stop Time Status Admin Acetaminophen 1,000 MG Q6P PRN 09/19 0345 AC N/A 1 UNIT IV Acetaminophen 650 MG Q8P PRN 09/19 0245 AC PO Aspirin Buffered 81 MG QAM 09/19 1000 AC 09/28 PO 1025 Atorvastatin Calcium 40 MG 1700 09/19 1700 AC 09/28 PO 1650 Diphenhydramine HCl 1 FLETCHER Q6-PRN PRN 09/24 1945 AC 09/25 TOP 0430 Ezetimibe 10 MG QPM 09/19 2200 AC 09/28 PO 2032 Famotidine 40 MG DAILY 09/19 1000 AC 09/28 PO 1026 Furosemide 80 MG DAILY 09/29 1000 AC PO Furosemide 40 MG .STK-MED ONE 09/28 1355 DC PO 09/28 1356 Furosemide 40 MG ONE ONE 09/28 1330 DC 09/28 PO 09/28 1331 1355 Furosemide 40 MG DAILY 09/26 1400 DC 09/28 PO 1025 Guaifenesin 10 ML Q6P PRN 09/25 0415 AC 09/25 PO 0430 Levothyroxine Sodium 0.05 MG DAILY AC 09/19 0700 AC 09/29 PO 0641 Metoprolol Tartrate 50 MG BID 09/19 1000 AC 09/28 PO 2032 Phenytoin 200 MG BID 09/19 1000 AC 09/28 PO 2032 Prednisone 15 MG BID 09/26 2200 AC 09/28 PO 2032 Assessment/Plan Assessment: Ms. Curiel is a 76-year-old female with past medical history of hypertension, hyperlipidemia, peripheral vascular disease, seizure disorder, chronic lower extremity lymphedema, nephrotic syndrome (renal biopsy shows FSGS) on steroids and chronic lower back pain presenting for swelling, pain and redness of right lower extremity found to have cellulitis of the RLE #Nonpurulent right lower extremity cellulitis, resolving WBC 18.5 4 bands -> 14.3 w/ 12 bands -> 15.1 w/ no bands on latest lab. - Sepsis w/ >10% band (within 24hrs of admission), leukocytosis, and tachycardia >100 on presentation, however resolved with treatment now. D-Dimer 217 -> 439 Bcx negative thus far Venous doppler negative for DVT Arterial doppler: some peripheral vascular disease on RLE -Completed 7-day course of ABX (Cefazolin + Keflex). - RLE appeared to be in chronic change from cellulitis without pain/elevated skin temp. Encouraged patient to try her best of OOB to chair. - Cultures negative so far. -Vascular surgery suggested no intervention at this time for PVD. -If patient becomes hypotensive consider IV steroids (stress dose) -f/u wound consult #Acute Kidney Injury from use of Lisinopril (new onset 09/22/2017): Cr increased suddenly from 0.6 -> 2.0 -> 2.6 -> 3.9 -> 4.6 -> 4.3 -> 4.6 -> 4.1 -> 4.2 on latest lab. likely 2/2 restart of lisinopril after 24hr urine collection, with L kidney KENNEDY. - Will hold lisinopril, spironolactone, and K (to avoid hyperkalemia in CRF). - Recheck BEP daily to trend Cr. - Patient's Cr plateaued at 4.2 after receiving 40mg x 2 Lasix from 09/29. Discussed with Renal and will discontinue Lasix and monitor patient's Cr over the weekend. - Patient's scheduled Prednisone taper will start 09/30 to 10mg BID. #Chronic moderate hyponatremia Na 128 on admission -> 135 on latest lab -at baseline continue to monitor -1200ml fluid restriction per nephro. Patient's compliance has been excellent. -Zaroxolyn on hold as well #History of nephrotic syndrome - 24hr urine showed 12.6gm protein, aligned with her underlying nephrotic symdrome. - f/u microalbumin/cr ratio - Hold lisinopril as above. - Continue PO prednisone (15 BID), pending tapering as above - Continue Bactrim for PCP prophylaxis in context of chronic steroid use - If blood pressure drops consider IV steroid stress dose #Chronic lower extremity lymhedema - Leg elevation - Holding diuretics/renal meds as above. #Chronic medical conditions: hyperlipidemia, GERD, HTN, hypothyroid, seizures and chronic back pain - continue Lipitor, Zetia, Pepcid, metoprolol and Vicodin, phenytoin, aspirin, levothyroxine #FULL CODE Heart Healthy Diet #lovenox Problem List: 1. Nephrotic syndrome Pain Ratin Pain Location: NA Pain Goal: Remain pain free Pain Plan: see AP Tomorrow's Labs & Rationales: BEP LeopoldoEneida cervantes 09/29/17 1316: Attending MD Review Statement Attending Statement Attending MD Statement: examined this patient, discuss w/resident/PA/INSTALLATION AND SERVICE TECHNICIAN, agreed w/resident/PA/INSTALLATION AND SERVICE TECHNICIAN, discussed with family, reviewed EMR data (avail), discussed with nursing, discussed with case mgmt, reviewed images, amended to note Attending Assessment/Plan: 76 yo F with h/o HTN, PVD, chronic lymphedema, nephrotic syndrome (renal biopsy shows FSGS) on steroids, chronic back pain, seizure disorder, nonobstructive CAD , is here for evaluation of right lower extremity redness, tender , warmth admitted for cellulitis (Also had vascular procedure) now developed acute kidney injury with lisinopril challenge and rule out underlying renal artery stenosis. Patient seen/examined bedside. Denies any new complaints, Watch for fluid overlaod, Cr 4.2 today. Assessment and plan: 1. Right lower extremity cellulitis with improvement 2. Sepsis resoved 3. Chronic lymphedema 4. Nephrotic syndrome on chronic steroids 5. Chronic back pain on opiates 6. Chronic hyponatremia 7. ANURAG with luis miguel inhibitor challenge 8. ??Possible renal artery stenosis. - Monitor for fluid overlaod, Creatinine function. F/u nephrology. LUIS MIGUEL inhibitor discontinued Resumed diuretics as per nephrology. Titrate lasix as per nephro. ( hold lasix for now) - f/u Vascular consult recommend no intervention inpatient. - Pain management. - continue outpatient prednisone. Taper steroids as per nephro. - dc planning based on PT recommendations and nephrology. - gi/dvt prophyalxis - anticipate dc once creatinine function improves.
--- NOTE | 2017-09-29 09:40 | PN- Nephrology ---
Assessment/Plan Assessment: FSGS. ANURAG most likely due to lisinopril. Cr still not back down. ? ATN related to brief course of lisinopril. Back on lasix 80 daily. Okay to continue. I suspect she may have KENNEDY of the larger kidney. Would continue to monitor inpatient until renal function recovers. Volume status appears okay. Could hold lasix for a day or two and let volume rise a bit to see if this hastens recovery (edema is better than it was on admission). Might consider renal doppler ( diagnostic) although probably would not act on findings right now. Philippe Márquez MD. Suggestion: . Subjective Subjective: Pt feels well. Creatinine down to 4.1 yesterday, 4.2 today. On lasix 80 daily Objective Vital Signs and I&Os Pleasant F NAD 150/70 87 97.7 Lungs clear Cor RRR Abd soft Ext 1+edema Current Medications: Current Medications Sig/Arsalan Start time Last Medication Dose Route Stop Time Status Admin Acetaminophen 1,000 MG Q6P PRN 09/19 0345 AC N/A 1 UNIT IV Acetaminophen 650 MG Q8P PRN 09/19 0245 AC PO Aspirin Buffered 81 MG QAM 09/19 1000 AC 09/29 PO 0859 Atorvastatin Calcium 40 MG 1700 09/19 1700 AC 09/28 PO 1650 Diphenhydramine HCl 1 FLETCHER Q6-PRN PRN 09/24 1945 AC 09/25 TOP 0430 Ezetimibe 10 MG QPM 09/19 2200 AC 09/28 PO 2032 Famotidine 40 MG DAILY 09/19 1000 AC 09/29 PO 0858 Furosemide 80 MG DAILY 09/29 1000 AC 09/29 PO 0859 Furosemide 40 MG .STK-MED ONE 09/28 1355 DC PO 09/28 1356 Furosemide 40 MG ONE ONE 09/28 1330 DC 09/28 PO 09/28 1331 1355 Furosemide 40 MG DAILY 09/26 1400 DC 09/28 PO 1025 Guaifenesin 10 ML Q6P PRN 09/25 0415 AC 09/25 PO 0430 Levothyroxine Sodium 0.05 MG DAILY AC 09/19 0700 AC 09/29 PO 0641 Metoprolol Tartrate 50 MG BID 09/19 1000 AC 09/29 PO 0859 Phenytoin 200 MG BID 09/19 1000 AC 09/29 PO 0859 Prednisone 15 MG BID 09/26 2200 AC 09/29 PO 0858 Results Pertinent Lab Results: Laboratory Tests 09/29 09/28 09/27 0750 0730 0835 Chemistry Sodium (137 - 145 mmol/L) 135 L 135 L 135 L Potassium (3.5 - 5.1 mmol/L) 4.6 4.4 5.0 Chloride (98 - 107 mmol/L) 97 L 100 95 L Carbon Dioxide (22 - 30 mmol/L) 23 23 25 Anion Gap (5 - 16) 15 12 14 BUN (7 - 17 mg/dL) 76 H 68 H 70 H Creatinine (0.5 - 1.0 mg/dL) 4.2 H 4.1 H 4.6 H Estimated GFR (>60 ml/min) 10 L 11 L 9 L BUN/Creatinine Ratio (7 - 25 %) 18.1 16.6 15.2 Hematology CBC w Diff NO MAN DIFF REQ WBC (4.8 - 10.8 /CUMM) 16.1 H RBC (4.20 - 5.40 /CUMM) 3.31 L Hgb (12.0 - 16.0 G/DL) 11.4 L Hct (37 - 47 %) 33.5 L MCV (81.0 - 99.0 FL) 101.2 H MCH (27.0 - 31.0 PG) 34.5 H MCHC (33.0 - 37.0 G/DL) 34.1 RDW (11.5 - 14.5 %) 13.6 Plt Count (130 - 400 /CUMM) 677 H MPV (7.4 - 10.4 FL) 7.0 L Gran % (42.2 - 75.2 %) 86.7 H Lymphocytes % (20.5 - 51.1 %) 7.8 L Monocytes % (1.7 - 9.3 %) 4.9 Eosinophils % (0 - 5 %) 0.5 Basophils % (0.0 - 2.0 %) 0.1 Absolute Granulocytes (1.4 - 6.5 /CUMM) 13.9 H Absolute Lymphocytes (1.2 - 3.4 /CUMM) 1.2 Absolute Monocytes (0.10 - 0.60 /CUMM) 0.8 H Absolute Eosinophils (0.0 - 0.7 /CUMM) 0.1 Absolute Basophils (0.0 - 0.2 /CUMM) 0
[2017-09-29 14:00] VITALS: BP 140/70
[2017-09-29 22:32] VITALS: BP 140/70
[2017-09-30 06:27] VITALS: BP 130/62
--- NOTE | 2017-09-30 08:30 | PN- Housestaff ---
ReddyTati 09/30/17 0828: Subjective Follow-up For: ATN?? Chronic lymphedema Nephrotic syndrome on chronic steroids Chronic back pain on opiates Chronic hyponatremia Subjective: No overnight event. Patient was eating when I entered. Patient acknowledged and agreed for a renal doppler. Patient endorsed some hand and feet tremors on and off for a week but nothing much. Review of Systems Constitutional: Reports: see HPI. Objective Last 24 Hrs of Vital Signs/I&O Vital Signs Date Time Temp Pulse Resp B/P B/P Pulse O2 O2 Flow FiO2 Mean Ox Delivery Rate 09/30 626 97.4 86 20 130/62 98 Room Air 09/29 2232 98.4 91 18 140/70 95 Room Air 09/29 2202 91 140/70 09/29 1400 98.0 85 20 140/70 96 09/29 0859 150/70 Intake & Output 09/30 1600 09/30 0800 09/30 0000 Intake Total 920 Output Total Balance 920 Intake, Oral 920 Physical Exam General Appearance: Alert, Oriented X3, Cooperative, No Acute Distress Cardiovascular: Regular Rate Lungs: Clear to Auscultation, Normal Air Movement Abdomen: Normal Bowel Sounds, Soft, No Tenderness Neurological: Normal Speech, Strength at 5/5 X4 Ext Extremities: No Edema, Normal Pulses, No Tenderness/Swelling Current Medications: Current Medications Sig/Arsalan Start time Last Medication Dose Route Stop Time Status Admin Acetaminophen 650 MG .STK-MED ONE 09/29 1813 DC PO 09/29 1814 Acetaminophen 1,000 MG Q6P PRN 09/19 0345 AC N/A 1 UNIT IV Acetaminophen 650 MG Q8P PRN 09/19 0245 AC 09/29 PO 1814 Aspirin Buffered 81 MG QAM 09/19 1000 AC 09/29 PO 0859 Atorvastatin Calcium 40 MG 1700 09/19 1700 AC 09/29 PO 1631 Diphenhydramine HCl 1 FLETCHER Q6-PRN PRN 09/24 1945 AC 09/25 TOP 0430 Ezetimibe 10 MG QPM 09/19 2200 AC 09/29 PO 2201 Famotidine 40 MG DAILY 09/19 1000 AC 09/29 PO 0858 Furosemide 80 MG DAILY 09/29 1000 DC 09/29 PO 0859 Guaifenesin 10 ML Q6P PRN 09/25 0415 AC 02/04 PO 0430 Levothyroxine Sodium 0.05 MG DAILY AC 09/19 0700 AC 09/30 PO 0540 Metoprolol Tartrate 50 MG BID 09/19 1000 AC 09/29 PO 220 Phenytoin 200 MG BID 09/19 1000 AC 09/29 PO 220 Prednisone 10 MG BID 09/30 1000 AC PO Prednisone 15 MG BID 09/260 DC 09/29 PO 09/29 2300 2201 Assessment/Plan Assessment: Ms. Curiel is a 76-year-old female with past medical history of hypertension, hyperlipidemia, peripheral vascular disease, seizure disorder, chronic lower extremity lymphedema, nephrotic syndrome (renal biopsy shows FSGS) on steroids and chronic lower back pain presenting for swelling, pain and redness of right lower extremity found to have cellulitis of the RLE #Nonpurulent right lower extremity cellulitis, resolved WBC 18.5 4 bands -> 14.3 w/ 12 bands -> 15.1 w/ no bands on latest lab. - Sepsis w/ >10% band (within 24hrs of admission), leukocytosis, and tachycardia >100 on presentation, however resolved with treatment now. D-Dimer 217 -> 439 Bcx negative thus far Venous doppler negative for DVT Arterial doppler: some peripheral vascular disease on RLE -Completed 7-day course of ABX (Cefazolin + Keflex). - RLE appeared to be in chronic change from cellulitis without pain/elevated skin temp. Encouraged patient to try her best of OOB to chair. - Cultures negative so far. -Vascular surgery suggested no intervention at this time for PVD. -If patient becomes hypotensive consider IV steroids (stress dose) #Acute Kidney Injury/ATN from use of Lisinopril (new onset 09/22/2017): Cr increased suddenly from 0.6 -> 2.0 -> 2.6 -> 3.9 -> 4.6 -> 4.3 -> 4.6 -> 4.1 -> 4.2 on latest lab. likely / restart of lisinopril after 24hr urine collection, with L kidney KENNEDY. - Will hold lisinopril, spironolactone, and K (to avoid hyperkalemia in CRF). - Recheck BEP daily to trend Cr. - Patient's Cr plateaued at 4.2 after receiving 40mg x 2 Lasix from 09/29. Discussed with Renal and will discontinue Lasix and monitor patient's Cr over the weekend. - May proceed with a renal Doppler to check for renal artery stenosis. - Patient's scheduled Prednisone taper will start 09/30 to 10mg BID. #Chronic moderate hyponatremia Na 128 on admission -> 135 on latest lab -at baseline continue to monitor -1200ml fluid restriction per nephro. Patient's compliance has been excellent. -Zaroxolyn on hold as well #History of nephrotic syndrome - 24hr urine showed 12.6gm protein, aligned with her underlying nephrotic symdrome. - f/u microalbumin/cr ratio - Hold lisinopril as above. - Continue PO prednisone (15 BID), pending tapering as above - Continue Bactrim for PCP prophylaxis in context of chronic steroid use - If blood pressure drops consider IV steroid stress dose #Chronic lower extremity lymhedema - Leg elevation - Holding diuretics/renal meds as above. #Chronic medical conditions: hyperlipidemia, GERD, HTN, hypothyroid, seizures and chronic back pain - continue Lipitor, Zetia, Pepcid, metoprolol and Vicodin, phenytoin, aspirin, levothyroxine #FULL CODE Heart Healthy Diet #lovenox Problem List: 1. Elevated serum creatinine 2. Nephrotic syndrome Pain Ratin Pain Location: NA Pain Goal: Remain pain free Pain Plan: see AP Tomorrow's Labs & Rationales: BEP Consulting Request: Consulting Specialty: Nephrology Consulting Physician: Reason for Consult: FSGS LeopoldoEneida cervantes 09/30/17 1252: Attending MD Review Statement Attending Statement Attending MD Statement: examined this patient, discuss w/resident/PA/SSIS ETL DEVELOPER, agreed w/resident/PA/SSIS ETL DEVELOPER, discussed with family, reviewed EMR data (avail), discussed with nursing, discussed with case mgmt, reviewed images, amended to note Attending Assessment/Plan: 76 yo F with h/o HTN, PVD, chronic lymphedema, nephrotic syndrome (renal biopsy shows FSGS) on steroids, chronic back pain, seizure disorder, nonobstructive CAD , is here for evaluation of right lower extremity redness, tender , warmth admitted for cellulitis (Also had vascular procedure) now developed acute kidney injury with lisinopril challenge and rule out underlying renal artery stenosis. Patient seen/examined bedside. Denies any new complaints, Watch for fluid overlaod, Cr 4.3 today. Patient is working with PT daily. Assessment and plan: 1. Right lower extremity cellulitis with improvement 2. Sepsis resoved 3. Chronic lymphedema 4. Nephrotic syndrome on chronic steroids 5. Chronic back pain on opiates 6. Chronic hyponatremia 7. ANURAG with luis miguel inhibitor challenge 8. ??Possible renal artery stenosis. - Monitor for fluid overlaod, Creatinine function. F/u nephrology. LUIS MIGUEL inhibitor discontinued Resumed diuretics as per nephrology. Titrate lasix as per nephro. ( held lasix for now) - f/u Vascular consult recommend no intervention inpatient. - Pain management. - continue outpatient prednisone. Taper steroids as per nephro. - dc planning based on PT recommendations and nephrology. Home PT - gi/dvt prophyalxis - anticipate dc once creatinine function improves.
[2017-09-30 09:26] LABS: ABSOLUTE BASOPHIL COUNT 0 /CUMM (0.0-0.2); ABSOLUTE EOSINOPHIL COUNT 0 /CUMM (0.0-0.7); ABSOLUTE GRANULOCYTE CT 15.9 /CUMM (1.4-6.5); ABSOLUTE LYMPH COUNT 1.7 /CUMM (1.2-3.4); BASOPHIL % 0.1 % (0.0-2.0); EOSINOPHIL % 0.2 % (0-5); HEMATOCRIT 33.3 % (37-47); MEAN CORPUSCULAR HGB 34.5 PG (27.0-31.0); MEAN CORPUSCULAR HGB CONC 34.5 G/DL (33.0-37.0); MEAN CORPUSCULAR VOLUME 99.9 FL (81.0-99.0); RED BLOOD CELL CT 3.33 /CUMM (4.20-5.40)
[2017-09-30] MEDS ORDERED: PREDNISONE5 M1 PO (09:49)
[2017-09-30 10:23] LABS: PLATELET COUNT 817 /CUMM (130-400)
[2017-09-30 10:24] LABS: WHITE BLOOD CELL COUNT 18.7 /CUMM (4.8-10.8)
--- NOTE | 2017-09-30 11:59 | PN- Nephrology ---
Assessment/Plan Assessment: FSGS. ANURAG most likely due to lisinopril. Cr still not back down. ? ATN related to brief course of lisinopril. Lasix now on hold. For renal dopplers. Follow renal function over weekend. Philippe Márquez MD. Suggestion: . Subjective Subjective: Pt comfortable. Cr 4.3 Objective Vital Signs and I&Os F NAD 150/80 88 97.4 Lungs clear Cor RRR Abd soft N/T Ext tr - 1+edema Results Pertinent Lab Results: Laboratory Tests 09/30 09/29 09/28 0854 0750 0730 Chemistry Sodium (137 - 145 mmol/L) 135 L 135 L 135 L Potassium (3.5 - 5.1 mmol/L) 4.2 4.6 4.4 Chloride (98 - 107 mmol/L) 96 L 97 L 100 Carbon Dioxide (22 - 30 mmol/L) 25 23 23 Anion Gap (5 - 16) 14 15 12 BUN (7 - 17 mg/dL) 77 H 76 H 68 H Creatinine (0.5 - 1.0 mg/dL) 4.3 H 4.2 H 4.1 H Estimated GFR (>60 ml/min) 10 L 10 L 11 L BUN/Creatinine Ratio (7 - 25 %) 17.9 18.1 16.6 Calcium (8.4 - 10.2 mg/dL) 8.5 Magnesium (1.6 - 2.3 mg/dL) 2.2 Albumin (3.5 - 5.0 g/dL) 3.0 L Hematology CBC w Diff NO MAN DIFF REQ WBC (4.8 - 10.8 /CUMM) 18.7 H RBC (4.20 - 5.40 /CUMM) 3.33 L Hgb (12.0 - 16.0 G/DL) 11.5 L Hct (37 - 47 %) 33.3 L MCV (81.0 - 99.0 FL) 99.9 H MCH (27.0 - 31.0 PG) 34.5 H MCHC (33.0 - 37.0 G/DL) 34.5 RDW (11.5 - 14.5 %) 14.0 Plt Count (130 - 400 /CUMM) 817 H MPV (7.4 - 10.4 FL) 7.0 L Gran % (42.2 - 75.2 %) 85.0 H Lymphocytes % (20.5 - 51.1 %) 9.3 L Monocytes % (1.7 - 9.3 %) 5.4 Eosinophils % (0 - 5 %) 0.2 Basophils % (0.0 - 2.0 %) 0.1 Absolute Granulocytes (1.4 - 6.5 /CUMM) 15.9 H Absolute Lymphocytes (1.2 - 3.4 /CUMM) 1.7 Absolute Monocytes (0.10 - 0.60 /CUMM) 1.0 H Absolute Eosinophils (0.0 - 0.7 /CUMM) 0 Absolute Basophils (0.0 - 0.2 /CUMM) 0
[2017-09-30 14:28] VITALS: BP 138/70
[2017-09-30 22:18] VITALS: BP 130/60
[2017-10-01 06:21] VITALS: BP 148/80
--- NOTE | 2017-10-01 09:25 | PN- Housestaff ---
Robinson Justice MD 10/01/1725: Subjective Follow-up For: cellulitis ANURAG FSGS/CKD Chronic lymphedema Nephrotic syndrome on chronic steroids Chronic back pain Chronic hyponatremia Subjective: cellulitis improved renal function stabilizes, no changes in color, quality or volume of urine output afebrile, no other complaints Review of Systems Constitutional: Reports: see HPI. Objective Last 24 Hrs of Vital Signs/I&O Vital Signs Date Time Temp Pulse Resp B/P B/P Pulse O2 O2 Flow FiO2 Mean Ox Delivery Rate 10/01 1507 98.7 91 20 140/80 95 10/01 0923 70 138/78 10/01 0621 98.0 70 20 148/80 96 Room Air 09/30 2218 98.1 96 20 130/60 97 Room Air 09/30 2040 92 130/70 Intake & Output 10/01 1600 10/01 0800 10/01 0000 Intake Total 500 20 480 Output Total Balance 500 20 480 Intake, IV 10 Intake, Oral 500 10 480 Number 0 Bowel Movements Physical Exam General Appearance: Alert, Oriented X3, Cooperative, No Acute Distress Cardiovascular: Regular Rate, Normal S1, Normal S2, No Murmurs Lungs: Clear to Auscultation, Normal Air Movement Abdomen: Normal Bowel Sounds, Soft, No Tenderness, No Masses Extremities: No Clubbing, No Cyanosis, No Edema, Normal Pulses Assessment/Plan Assessment: Ms. Curiel is a 76-year-old female with past medical history of hypertension, hyperlipidemia, peripheral vascular disease, seizure disorder, chronic lower extremity lymphedema, nephrotic syndrome (renal biopsy shows FSGS) on steroids and chronic lower back pain presenting for swelling, pain and redness of right lower extremity found to have cellulitis of the RLE #Nonpurulent right lower extremity cellulitis, resolved WBC 18.5 4 bands -> 14.3 w/ 12 bands -> 15.1 w/ no bands on latest lab. - Sepsis w/ >10% band (within 24hrs of admission), leukocytosis, and tachycardia >100 on presentation, however resolved with treatment now. D-Dimer 217 -> 439 Bcx negative thus far Venous doppler negative for DVT Arterial doppler: some peripheral vascular disease on RLE -Completed 7-day course of ABX (Cefazolin + Keflex). - RLE appeared to be in chronic change from cellulitis without pain/elevated skin temp. Encouraged patient to try her best of OOB to chair. - Cultures negative so far. -Vascular surgery suggested no intervention at this time for PVD. -If patient becomes hypotensive consider IV steroids (stress dose) #Acute Kidney Injury/ATN from use of Lisinopril (new onset 09/22/2017): Cr increased suddenly from 0.6 -> 2.0 -> 2.6 -> 3.9 -> 4.6 -> 4.3 -> 4.6 -> 4.1 -> 4.2 on latest lab. likely 09/23 restart of lisinopril after 24hr urine collection, with L kidney KENNEDY. - Will hold lisinopril, spironolactone, and K (to avoid hyperkalemia in CRF). - Recheck BEP daily to trend Cr. - Patient's Cr plateaued at 4.2 after receiving 40mg x 2 Lasix from 09/29. Discussed with Renal and will discontinue Lasix and monitor patient's Cr over the weekend. -Renal artery Doppler ultrasound negative for renal artery stenosis. - Patient's scheduled Prednisone taper will start 09/30 to 10mg BID. #Chronic moderate hyponatremia Na 128 on admission -> 135 on latest lab -at baseline continue to monitor -1200ml fluid restriction per nephro. Patient's compliance has been excellent. -Zaroxolyn on hold as well #History of nephrotic syndrome - 24hr urine showed 12.6gm protein, aligned with her underlying nephrotic symdrome. - f/u microalbumin/cr ratio - Hold lisinopril as above. - Continue PO prednisone (15 BID), pending tapering as above - Continue Bactrim for PCP prophylaxis in context of chronic steroid use - If blood pressure drops consider IV steroid stress dose #Chronic lower extremity lymhedema - Leg elevation - Holding diuretics/renal meds as above. #Chronic medical conditions: hyperlipidemia, GERD, HTN, hypothyroid, seizures and chronic back pain - continue Lipitor, Zetia, Pepcid, metoprolol and Vicodin, phenytoin, aspirin, levothyroxine #FULL CODE Heart Healthy Diet #lovenox Problem List: 1. Elevated serum creatinine 2. Nephrotic syndrome 3. Cellulitis 4. Leg edema Pain Ratin Pain Location: n/a Pain Goal: Pain 4 or less Pain Plan: prn Tomorrow's Labs & Rationales: bep Consulting Request: Consulting Specialty: Nephrology Consulting Physician: Reason for Consult: FSGS Adonis FONTENOT,Mable 10/01/17 1210: Attending MD Review Statement Attending Statement Attending MD Statement: examined this patient, discuss w/resident/PA/SUGAR CANE PLANTER, agreed w/resident/PA/SUGAR CANE PLANTER, reviewed EMR data (avail), discussed with nursing, discussed with case mgmt, reviewed images, amended to note Attending Assessment/Plan: Patient seen and examined, feels ok. Cr still in 4s. Renal US neg for renal art stenosis. Vital Signs Date Time Temp Pulse Resp B/P B/P Pulse O2 O2 Flow FiO2 Mean Ox Delivery Rate 10/01 0923 70 138/78 10/01 0621 98.0 70 20 148/80 96 Room Air 09/30 2218 98.1 96 20 130/60 97 Room Air 09/30 2040 92 130/70 09/30 1428 98.8 84 20 138/70 96 Room Air on exam: aox3, nad. cv; s1, s2, rrr resp; clear abd: soft, nt, bs+ ext; no edema. Laboratory Tests 10/01 08 Chemistry Sodium (137 - 145 mmol/L) 137 Potassium (3.5 - 5.1 mmol/L) 4.2 Chloride (98 - 107 mmol/L) 100 Carbon Dioxide (22 - 30 mmol/L) 24 Anion Gap (5 - 16) 14 BUN (7 - 17 mg/dL) 70 H Creatinine (0.5 - 1.0 mg/dL) 4.1 H Estimated GFR (>60 ml/min) 11 L BUN/Creatinine Ratio (7 - 25 %) 17.1 A/P: 76 yo F with h/o HTN, PVD, chronic lymphedema, nephrotic syndrome (renal biopsy shows FSGS) on steroids, chronic back pain, seizure disorder, nonobstructive CAD, is here for evaluation of right lower extremity redness, tender , warmth admitted for cellulitis and treated and now has developed acute renal failure likely 2/2 to LUIS MIGUEL. Per Nepro, continue to monitor kidney function. Unilateral sound negative for renal artery stenosis. Continue to avoid nephrotoxic medications. Continue the rest of the medications and will monitor creatinine tomorrow.
--- NOTE | 2017-10-01 10:54 | ULTRASOUND REPORT ---
EXAMINATION: US ABDOMEN AND PELVIS CLINICAL INFORMATION: Nephrotic syndrome with possible ATN. COMPARISON: None available. TECHNIQUE: Real-time grayscale, color Doppler, and spectral Doppler analysis is performed of the kidneys to assess for the presence of renal artery stenosis. FINDINGS: The right kidney measures 12.2 x 5.8 x 6.4 cm and the left kidney measures 11.6 x 5.6 x 5.7 cm. There is no hydronephrosis. Bladder is unremarkable and ureteral jets are demonstrated bilaterally. Left distal renal artery peak systolic velocity is 44 cm/s with an end-diastolic velocity of 11.5 cm/s and a resistive index of 0.7. Mid left renal artery systolic velocity is 87.8 cm/s with an end-diastolic velocity of 18.1 cm/s and resistive index of 0.79. Proximal left renal artery peak systolic velocity is 37.4 cm/s. Left renal aortic ratio was 0.9. Right distal renal artery peak systolic velocity 68.2 cm/s with an end-diastolic velocity of 15.4 cm/s and a resistive index of 0.77. Right mid renal artery peak systolic velocity is 57.7 cm/s with a maximal end-diastolic velocity of 18.1 cm/s and a resistive index of 0.7. Proximal right renal artery peak systolic velocity is 70.9 cm/s with end-diastolic velocity of 16.5 cm/s and a resistive index of 0.77. The right renal to aortic ratio is 0.7. Abdominal aortic peak systolic velocity is 97.9 cm/s. IMPRESSION: There is no sonographic evidence of renal artery stenosis.
[2017-10-01 15:04] VITALS: BP 110/60
[2017-10-01 15:07] VITALS: BP 140/80
[2017-10-01 22:00] VITALS: BP 170/90
[2017-10-01 22:43] VITALS: BP 140/60
[2017-10-02] VITALS: BP 170/88
[2017-10-02 01:30] VITALS: BP 152/86
[2017-10-02 06:20] VITALS: BP 134/72
[2017-10-02 08:36] LABS: ABSOLUTE BASOPHIL COUNT 0.1 /CUMM (0.0-0.2); ABSOLUTE EOSINOPHIL COUNT 0.1 /CUMM (0.0-0.7); ABSOLUTE GRANULOCYTE CT 13.5 /CUMM (1.4-6.5); ABSOLUTE LYMPH COUNT 1.8 /CUMM (1.2-3.4); ABSOLUTE MONOCYTE COUNT 1.2 /CUMM (0.10-0.60); BASOPHIL % 0.4 % (0.0-2.0); EOSINOPHIL % 0.6 % (0-5); GRANULOCYTE % 80.8 % (42.2-75.2); HEMATOCRIT 28.5 % (37-47); MEAN CORPUSCULAR HGB 34.4 PG (27.0-31.0); MEAN CORPUSCULAR HGB CONC 34.4 G/DL (33.0-37.0); MEAN CORPUSCULAR VOLUME 100.1 FL (81.0-99.0); MEAN PLATELET VOLUME 6.9 FL (7.4-10.4); PLATELET COUNT 686 /CUMM (130-400); RBC DISTRIBUTION WIDTH 13.6 % (11.5-14.5); RED BLOOD CELL CT 2.85 /CUMM (4.20-5.40); WHITE BLOOD CELL COUNT 16.7 /CUMM (4.8-10.8)
--- NOTE | 2017-10-02 08:46 | PN- Housestaff ---
Niesha FONTENOT,Susana 10/02/17 0846: Subjective Follow-up For: ATN, hyponatremia, chronic lower extremity edema Complaints: no complaints Subjective: Patient was seen and examined at bedside. Overnight patient blood pressure was high 170/88 and hydralazine 25 mg was given once. No complaints. He denies chest pain, chest pressure, pain in his lower extremities, shortness of breath, palpitation. Review of Systems Constitutional: Reports: no symptoms. Cardiovascular: Reports: no symptoms. Respiratory: Reports: no symptoms. Gastrointestinal: Reports: no symptoms. Genitourinary: Reports: no symptoms. Musculoskeletal: Reports: no symptoms. Objective Last 24 Hrs of Vital Signs/I&O Vital Signs Date Time Temp Pulse Resp B/P B/P Pulse O2 O2 Flow FiO2 Mean Ox Delivery Rate 10/02 0935 138/74 10/02 0620 98.3 84 20 134/72 96 Room Air 10/02 0130 98.4 84 20 152/86 95 Room Air 10/02 0012 98.4 85 20 170/88 10/02 0000 98.4 85 20 170/88 96 Room Air 10/01 2243 98.8 93 20 140/60 98 Room Air 10/01 2200 88 18 170/90 10/01 2129 88 170/90 10/01 1507 98.7 91 20 140/80 95 Intake & Output 10/02 1600 10/02 0800 10/02 0000 Intake Total 180 300 Output Total Balance 180 300 Intake, Oral 180 300 Physical Exam General Appearance: Alert, Oriented X3, Cooperative, No Acute Distress Skin: No Rashes, No Breakdown HEENT: Atraumatic, PERRLA Neck: No JVD, No thryomegaly, +2 Carotid Pulse wo Bruit Cardiovascular: Normal S1, Normal S2, No Murmurs Lungs: Clear to Auscultation Abdomen: Soft, No Tenderness, No Hepatospenomegaly Neurological: Normal Speech Extremities: BILATERAL LEG EDEMA. RIGHT LEG MORE ERYTHEMATOUS COMPARED TO LEFT Current Medications: Current Medications Sig/Arsalan Start time Last Medication Dose Route Stop Time Status Admin Acetaminophen 1,000 MG Q6P PRN 09/19 0345 AC N/A 1 UNIT IV Acetaminophen 650 MG Q8P PRN 09/19 0245 AC 09/29 PO 1814 Aspirin Buffered 81 MG QAM 09/19 1000 AC 10/02 PO 0935 Atorvastatin Calcium 40 MG 1700 09/19 1700 AC 10/01 PO 1607 Diphenhydramine HCl 1 FLETCHER Q6-PRN PRN 09/24 1945 AC 09/25 TOP 0430 Ezetimibe 10 MG QPM 09/19 2200 AC 10/01 PO 2126 Famotidine 40 MG DAILY 09/19 1000 AC 10/02 PO 0935 Guaifenesin 10 ML Q6P PRN 09/25 0415 AC 09/25 PO 0430 Hydralazine HCl 25 MG ONCE ONE 10/01 2300 CAN PO 10/01 230 Hydralazine HCl 25 MG ONCE ONE 10/01 2300 DC 10/02 PO 10/01 2301 0012 Levothyroxine Sodium 0.05 MG DAILY AC 09/19 0700 AC 10/02 PO 0558 Metoprolol Tartrate 50 MG BID 09/19 1000 AC 10/02 PO 0935 Phenytoin 200 MG BID 09/19 1000 AC 10/02 PO 0935 Prednisone 10 MG BID 09/30 1000 AC 10/02 PO 0935 Last 24 Hrs of Lab/Jeyson Results Last 24 Hrs of Labs/Mics: Laboratory Tests 10/02/17 0752: Anion Gap 9, Estimated GFR 12 L, BUN/Creatinine Ratio 19.2, Magnesium 2.2, CBC w Diff NO MAN DIFF REQ, RBC 2.85 L, MCV 100.1 H, MCH 34.4 H, MCHC 34.4, RDW 13.6, MPV 6.9 L, Gran % 80.8 H, Lymphocytes % 11.1 L, Monocytes % 7.1, Eosinophils % 0.6, Basophils % 0.4, Absolute Granulocytes 13.5 H, Absolute Lymphocytes 1.8, Absolute Monocytes 1.2 H, Absolute Eosinophils 0.1, Absolute Basophils 0.1 Assessment/Plan Assessment: Ms. Curiel is a 76-year-old female with past medical history of hypertension, hyperlipidemia, peripheral vascular disease, seizure disorder, chronic lower extremity lymphedema, nephrotic syndrome (renal biopsy shows FSGS) on steroids and chronic lower back pain presenting for swelling, pain and redness of right lower extremity found to have cellulitis of the RLE #Nonpurulent right lower extremity cellulitis, resolved Bcx negative thus far Venous doppler negative for DVT Arterial doppler: some peripheral vascular disease on RLE Completed 7-day course of ABX (Cefazolin + Keflex). RLE appeared to be in chronic change from cellulitis without pain/elevated skin temp. Encouraged patient to try her best of OOB to chair. Cultures negative so far. Vascular surgery suggested no intervention at this time for PVD. If patient becomes hypotensive consider IV steroids (stress dose) #Acute Kidney Injury/ATN from use of Lisinopril (new onset 09/22/2017): Cr increased suddenly on latest lab. likely 2/2 restart of lisinopril after 24hr urine collection, with L kidney KENNEDY. Will hold lisinopril, spironolactone, and K (to avoid hyperkalemia in CRF). Recheck BEP daily to trend Cr. Patient's Cr today at 3.7. Lasix is held. Renal artery Doppler ultrasound negative for renal artery stenosis. Patient's scheduled Prednisone taper will start 09/30 to 10mg BID. #Chronic moderate hyponatremia Na 128 on admission -> 138 on latest lab at baseline continue to monitor 1200ml fluid restriction per nephro. Patient's compliance has been excellent. Zaroxolyn on hold as well #History of nephrotic syndrome 24hr urine showed 12.6gm protein, aligned with her underlying nephrotic symdrome. f/u microalbumin/cr ratio Hold lisinopril as above. Continue PO prednisone (15 BID), pending tapering as above Continue Bactrim for PCP prophylaxis in context of chronic steroid use If blood pressure drops consider IV steroid stress dose #Chronic lower extremity lymhedema Leg elevation Holding diuretics/renal meds as above. #Chronic medical conditions: hyperlipidemia, GERD, HTN, hypothyroid, seizures and chronic back pain continue Lipitor, Zetia, Pepcid, metoprolol and Vicodin, phenytoin, aspirin, levothyroxine #FULL CODE Heart Healthy Diet #lovenox Problem List: 1. Cellulitis 2. Hyponatremia 3. HTN (hypertension) 4. Elevated serum creatinine Pain Ratin Pain Location: none Pain Goal: Pain 7 or less Pain Plan: tylenol Tomorrow's Labs & Rationales: cbc,bep Consulting Request: Consulting Specialty: Nephrology Consulting Physician: Reason for Consult: BINA Lamb MD,Mable 10/02/17 1213: Attending MD Review Statement Attending Statement Attending MD Statement: examined this patient, discuss w/resident/PA/LEAD MECHANICAL ENGINEER, agreed w/resident/PA/LEAD MECHANICAL ENGINEER, reviewed EMR data (avail), discussed with nursing, reviewed images, amended to note Attending Assessment/Plan: Patient seen and examined, denies any complaints. No other acute issues. vss/. Labs Reviewed. A/P; 76 yo F with h/o HTN, PVD, chronic lymphedema, nephrotic syndrome (renal biopsy shows FSGS) on steroids, chronic back pain, seizure disorder, nonobstructive CAD, is here for evaluation of right lower extremity redness, tender , warmth admitted for cellulitis and treated and now has developed acute renal failure likely 2/2 to LUIS MIGUEL. Creatinine slowly improving. At this down to 3.7 today. Renal ultrasound does not show any renal artery stenosis. Continue to avoid nephrotoxic medications. Continue current medications. DVT prophylaxis: Please start the patient on heparin subcutaneous for DVT prophylaxis if no contraindication.
[2017-10-02 14:41] VITALS: BP 140/78
[2017-10-02 23:10] VITALS: BP 152/80
[2017-10-03 06:20] VITALS: BP 136/78
--- NOTE | 2017-10-03 08:29 | PN- Housestaff ---
Tati Reddy 10/03/17 0828: Subjective Follow-up For: ATN, hyponatremia, chronic lower extremity edema Subjective: No overnight event. Patient was eating had no specific complaint. patient's was wondering if discharge planning for today. Review of Systems Constitutional: Reports: see HPI. Objective Last 24 Hrs of Vital Signs/I&O Vital Signs Date Time Temp Pulse Resp B/P B/P Pulse O2 O2 Flow FiO2 Mean Ox Delivery Rate 10/03 0620 98.4 80 18 136/78 95 Room Air 10/02 2310 98.8 91 20 152/80 95 Room Air 10/02 2140 86 148/84 10/02 1441 98.7 90 20 140/78 95 10/02 0935 138/74 Intake & Output 10/03 1600 10/03 0800 10/03 0000 Intake Total 250 400 Output Total 250 Balance 250 150 Intake, IV 10 Intake, Oral 240 400 Number 1 Bowel Movements Output, Urine 250 Physical Exam General Appearance: Alert, Oriented X3, Cooperative, No Acute Distress Cardiovascular: Regular Rate, Normal S1, Normal S2 Lungs: Clear to Auscultation, Normal Air Movement Abdomen: Normal Bowel Sounds, Soft, No Tenderness Neurological: Normal Speech Extremities: No Edema, Normal Pulses, mild redness on the RLE but no tenderness/ elevated skin temp Assessment/Plan Assessment: Ms. Curiel is a 76-year-old female with past medical history of hypertension, hyperlipidemia, peripheral vascular disease, seizure disorder, chronic lower extremity lymphedema, nephrotic syndrome (renal biopsy shows FSGS) on steroids and chronic lower back pain presenting for swelling, pain and redness of right lower extremity found to have cellulitis of the RLE #Nonpurulent right lower extremity cellulitis, resolved Bcx negative thus far Venous doppler negative for DVT Arterial doppler: some peripheral vascular disease on RLE Completed 7-day course of ABX (Cefazolin + Keflex). RLE appeared to be in chronic change from cellulitis without pain/elevated skin temp. Encouraged patient to try her best of OOB to chair. Cultures negative so far. Vascular surgery suggested no intervention at this time for PVD. If patient becomes hypotensive consider IV steroids (stress dose) #Acute Kidney Injury/ATN from use of Lisinopril (new onset 09/22/2017): Cr increased suddenly on latest lab. likely 2/2 restart of lisinopril after 24hr urine collection, with L kidney KENNEDY. Will hold lisinopril, spironolactone, and K (to avoid hyperkalemia in CRF). Recheck BEP daily to trend Cr. Patient's Cr today at 3.9. Lasix is held. Renal artery Doppler ultrasound negative for renal artery stenosis. Patient's scheduled Prednisone taper will start 09/30 to 10mg BID. Will continue at this dose. Per Renal, would not start Tacrolimus today and defer it to outpatient nephro. #Chronic moderate hyponatremia Na 128 on admission -> 138 on latest lab at baseline continue to monitor 1200ml fluid restriction per nephro. Patient's compliance has been excellent. Zaroxolyn on hold as well #History of nephrotic syndrome 24hr urine showed 12.6gm protein, aligned with her underlying nephrotic symdrome. - Will redo 24hr urine collection. f/u microalbumin/cr ratio Hold lisinopril as above. Continue PO prednisone (15 BID), pending tapering as above Continue Bactrim for PCP prophylaxis in context of chronic steroid use If blood pressure drops consider IV steroid stress dose #Chronic lower extremity lymhedema Leg elevation Holding diuretics/renal meds as above. #Chronic medical conditions: hyperlipidemia, GERD, HTN, hypothyroid, seizures and chronic back pain continue Lipitor, Zetia, Pepcid, metoprolol and Vicodin, phenytoin, aspirin, levothyroxine #FULL CODE Heart Healthy Diet #lovenox Problem List: 1. Elevated serum creatinine 2. Nephrotic syndrome Pain Ratin Pain Location: NA Pain Goal: Remain pain free Pain Plan: see AP Tomorrow's Labs & Rationales: BEP Consulting Request: Consulting Specialty: Nephrology Consulting Physician: Reason for Consult: FSGS Eneida Mina 10/03/17 1154: Attending MD Review Statement Attending Statement Attending MD Statement: examined this patient, discuss w/resident/PA/BIOLOGY TUTOR, agreed w/resident/PA/BIOLOGY TUTOR, discussed with family, reviewed EMR data (avail), discussed with nursing, discussed with case mgmt, reviewed images, amended to note Attending Assessment/Plan: 76 yo F with h/o HTN, PVD, chronic lymphedema, nephrotic syndrome (renal biopsy shows FSGS) on steroids, chronic back pain, seizure disorder, nonobstructive CAD , is here for evaluation of right lower extremity redness, tender , warmth admitted for cellulitis (Also had vascular procedure) now developed acute kidney injury with lisinopril challenge likely ATN possible worsening FSGS. Patient seen/examined bedside. Denies any new complaints, Watch for fluid overlaod, Cr 3.9 today. Patient is working with PT daily. Assessment and plan: 1. Right lower extremity cellulitis with improvement 2. Sepsis resoved 3. Chronic lymphedema 4. Nephrotic syndrome on chronic steroids 5. Chronic back pain on opiates 6. Chronic hyponatremia 7. ANURAG with luis miguel inhibitor challenge - Monitor for fluid overlaod, Creatinine function. F/u nephrology. LUIS MIGUEL inhibitor discontinued Resumed diuretics as per nephrology. Titrate lasix as per nephro. ( held lasix for now) - f/u Vascular consult recommend no intervention inpatient. - Pain management. - continue outpatient prednisone. Taper prednisone as per nephro. Tacrolimus as per nephro. - PT recommends home PT. - anticipate dc as cr function improves with close outpatient follow up with nephrology.
[2017-10-03 08:59] LABS: ABSOLUTE BASOPHIL COUNT 0.1 /CUMM (0.0-0.2); ABSOLUTE EOSINOPHIL COUNT 0.1 /CUMM (0.0-0.7); ABSOLUTE LYMPH COUNT 1.9 /CUMM (1.2-3.4); ABSOLUTE MONOCYTE COUNT 1.3 /CUMM (0.10-0.60); BASOPHIL % 0.6 % (0.0-2.0); EOSINOPHIL % 0.8 % (0-5); GRANULOCYTE % 79.4 % (42.2-75.2); HEMATOCRIT 29.8 % (37-47); MEAN CORPUSCULAR HGB 34.4 PG (27.0-31.0); MEAN CORPUSCULAR HGB CONC 34.4 G/DL (33.0-37.0); MEAN CORPUSCULAR VOLUME 99.9 FL (81.0-99.0); PLATELET COUNT 692 /CUMM (130-400); RBC DISTRIBUTION WIDTH 13.6 % (11.5-14.5); RED BLOOD CELL CT 2.99 /CUMM (4.20-5.40); WHITE BLOOD CELL COUNT 16.4 /CUMM (4.8-10.8)
--- NOTE | 2017-10-03 10:14 | PN- Nephrology ---
Assessment/Plan Assessment: 1. ANURAG: ? ATN due to diuresis & RAAS interruption in face of nephrotic syndrome; ? rapidly progressive FSGS. No KENNEDY by Doppler & w/o atrophic kidney by repeat US. GFR stable w/o renal replacement indication 2. Nephrotic syndrome: bx FSGS; unresponsive to steroids; would not add calcineurin inhibitor at current GFR Suggestion: 1. No diuretics 2. Continue currrent prednisone 3. Recheck u/a If Cr stable next 24 hrs --> try for d/c to home w outpt labs & f/u Subjective Subjective: No uremic sx No SOB Feeling well Objective Vital Signs and I&Os Vital Signs Date Time Temp Pulse Resp B/P B/P Pulse O2 O2 Flow FiO2 Mean Ox Delivery Rate 10/03 0931 80 136/78 10/03 0620 98.4 80 18 136/78 95 Room Air 10/02 2310 98.8 91 20 152/80 95 Room Air 10/02 2140 86 148/84 10/02 1441 98.7 90 20 140/78 95 Intake & Output 10/03 1600 10/03 0400 10/02 1600 10/02 0400 10/01 1600 10/01 0400 Intake Total 250 400 340 300 520 480 Output Total 250 Balance 250 150 340 300 520 480 Intake, IV 10 10 Intake, Oral 240 400 340 300 510 480 Number 1 0 Bowel Movements Output, Urine 250 Physical Exam General Appearance: no apparent distress, alert, awake Head: atraumatic, normal appearance Ears, Nose, Throat: normal ENT inspection Neck: normal inspection Respiratory: normal breath sounds, quiet respiration, lungs clear Cardiovascular: regular rate/rhythm Abdomen: soft, non-tender, no organomegaly Back: no sacral edema Extremities: R leg discolored; 0-trace edema bilat Neurologic/Psychiatric: no motor/sensory deficits, awake, alert, oriented x 3 Current Medications: Current Medications Sig/Arsalan Start time Last Medication Dose Route Stop Time Status Admin Acetaminophen 1,000 MG Q6P PRN 09/19 0345 AC N/A 1 UNIT IV Acetaminophen 650 MG Q8P PRN 09/19 0245 AC 09/29 PO 1814 Aspirin Buffered 81 MG QAM 09/19 1000 AC 10/03 PO 0931 Atorvastatin Calcium 40 MG 1700 09/19 1700 AC 10/02 PO 1643 Diphenhydramine HCl 1 FLETCHER Q6-PRN PRN 09/24 1945 AC 09/25 TOP 0430 Ezetimibe 10 MG QPM 09/19 2200 AC 10/02 PO 2140 Famotidine 40 MG DAILY 09/19 1000 AC 10/03 PO 0931 Guaifenesin 10 ML Q6P PRN 09/25 0415 AC 09/25 PO 0430 Heparin Sodium 5,000 UNIT Q8 10/02 1400 AC 10/02 (Porcine) SC 1328 Levothyroxine Sodium 0.05 MG DAILY AC 09/19 0700 AC 10/03 PO 0602 Metoprolol Tartrate 50 MG BID 09/19 1000 AC 10/03 PO 0931 Phenytoin 200 MG BID 09/19 1000 AC 10/03 PO 0931 Prednisone 10 MG BID 09/30 1000 AC 10/03 PO 0931 Results Pertinent Lab Results: Laboratory Tests 10/03 10/02 0750 0752 Chemistry Sodium (137 - 145 mmol/L) 139 138 Potassium (3.5 - 5.1 mmol/L) 4.0 4.2 Chloride (98 - 107 mmol/L) 105 103 Carbon Dioxide (22 - 30 mmol/L) 25 27 Anion Gap (5 - 16) 10 9 BUN (7 - 17 mg/dL) 64 H 71 H Creatinine (0.5 - 1.0 mg/dL) 3.9 H 3.7 H Estimated GFR (>60 ml/min) 11 L 12 L BUN/Creatinine Ratio (7 - 25 %) 16.4 19.2 Magnesium (1.6 - 2.3 mg/dL) 2.2 Hematology CBC w Diff NO MAN DIFF REQ NO MAN DIFF REQ WBC (4.8 - 10.8 /CUMM) 16.4 H 16.7 H RBC (4.20 - 5.40 /CUMM) 2.99 L 2.85 L Hgb (12.0 - 16.0 G/DL) 10.3 L 9.8 L Hct (37 - 47 %) 29.8 L 28.5 L MCV (81.0 - 99.0 FL) 99.9 H 100.1 H MCH (27.0 - 31.0 PG) 34.4 H 34.4 H MCHC (33.0 - 37.0 G/DL) 34.4 34.4 RDW (11.5 - 14.5 %) 13.6 13.6 Plt Count (130 - 400 /CUMM) 692 H 686 H MPV (7.4 - 10.4 FL) 7.0 L 6.9 L Gran % (42.2 - 75.2 %) 79.4 H 80.8 H Lymphocytes % (20.5 - 51.1 %) 11.4 L 11.1 L Monocytes % (1.7 - 9.3 %) 7.8 7.1 Eosinophils % (0 - 5 %) 0.8 0.6 Basophils % (0.0 - 2.0 %) 0.6 0.4 Absolute Granulocytes (1.4 - 6.5 /CUMM) 13.0 H 13.5 H Absolute Lymphocytes (1.2 - 3.4 /CUMM) 1.9 1.8 Absolute Monocytes (0.10 - 0.60 /CUMM) 1.3 H 1.2 H Absolute Eosinophils (0.0 - 0.7 /CUMM) 0.1 0.1 Absolute Basophils (0.0 - 0.2 /CUMM) 0.1 0.1 10/01 0805 Chemistry Sodium (137 - 145 mmol/L) 137 Potassium (3.5 - 5.1 mmol/L) 4.2 Chloride (98 - 107 mmol/L) 100 Carbon Dioxide (22 - 30 mmol/L) 24 Anion Gap (5 - 16) 14 BUN (7 - 17 mg/dL) 70 H Creatinine (0.5 - 1.0 mg/dL) 4.1 H Estimated GFR (>60 ml/min) 11 L BUN/Creatinine Ratio (7 - 25 %) 17.1 Imaging/Other Studies: Renal US/Doppler The right kidney measures 12.2 x 5.8 x 6.4 cm and the left kidney measures 11.6 x 5.6 x 5.7 cm. There is no hydronephrosis. Bladder is unremarkable and ureteral jets are demonstrated bilaterally. There is no sonographic evidence of renal artery stenosis
[2017-10-03 13:48] VITALS: BP 130/70
[2017-10-03 21:14] VITALS: BP 140/82
[2017-10-04 05:57] VITALS: BP 150/80
--- NOTE | 2017-10-04 07:43 | PN- Housestaff ---
See Addendum Subjective Follow-up For: ATN, hyponatremia, chronic lower extremity edema Subjective: No overnight event. patient offered no complaint. Will complete 24hr urine collection in the afternoon. Review of Systems Constitutional: Reports: see HPI. Objective Last 24 Hrs of Vital Signs/I&O Vital Signs Date Time Temp Pulse Resp B/P B/P Pulse O2 O2 Flow FiO2 Mean Ox Delivery Rate 10/04 0557 98.1 84 20 150/80 97 Room Air 10/03 2114 97.9 85 18 140/82 95 Room Air 10/03 2035 85 140/82 10/03 1348 97.9 92 18 130/70 95 Room Air 10/03 0931 80 136/78 Intake & Output 10/04 1600 10/04 0800 10/04 0000 Intake Total 600 Output Total 600 Balance 0 Intake, Oral 600 Output, Urine 600 Physical Exam General Appearance: Alert, Oriented X3, Cooperative, No Acute Distress Cardiovascular: Regular Rate Lungs: Clear to Auscultation, Normal Air Movement Abdomen: Normal Bowel Sounds, Soft, No Tenderness Extremities: No Edema, Normal Pulses Current Medications: Current Medications Sig/Arsalan Start time Last Medication Dose Route Stop Time Status Admin Acetaminophen 650 MG .STK-MED ONE 10/03 1548 DC PO 10/03 1549 Acetaminophen 1,000 MG Q6P PRN 09/19 0345 AC N/A 1 UNIT IV Acetaminophen 650 MG Q8P PRN 09/19 0245 AC 10/03 PO 1548 Aspirin Buffered 81 MG QAM 09/19 1000 AC 10/03 PO 0931 Atorvastatin Calcium 40 MG 1700 09/19 1700 AC 10/03 PO 1545 Diphenhydramine HCl 1 FLETCHER Q6-PRN PRN 09/24 1945 AC 09/25 TOP 0430 Ezetimibe 10 MG QPM 09/19 2200 AC 10/03 PO 2034 Famotidine 40 MG DAILY 09/19 1000 AC 10/03 PO 0931 Guaifenesin 10 ML Q6P PRN 09/25 0415 AC 09/25 PO 0430 Heparin Sodium 5,000 UNIT Q8 10/02 1400 AC 10/04 (Porcine) SC 0555 Levothyroxine Sodium 0.05 MG DAILY AC 09/19 0700 AC 10/04 PO 0555 Metoprolol Tartrate 50 MG BID 09/19 1000 AC 02/12 PO 2035 Phenytoin 200 MG BID 09/19 1000 AC 10/03 PO 2033 Prednisone 10 MG BID 09/30 1000 AC 10/03 PO 2033 Last 24 Hrs of Lab/Jeyson Results Last 24 Hrs of Labs/Mics: Laboratory Tests 10/04/17 0700: Anion Gap 9, Estimated GFR 12 L, BUN/Creatinine Ratio 15.0 10/03/17 1121: Urine Color YEL, Urine Clarity CLEAR, Urine pH 7.0, Ur Specific [place] 1.020, Urine Protein 100 H, Urine Ketones NEG, Urine Nitrite NEG, Urine Bilirubin NEG, Urine Urobilinogen 0.2, Ur Leukocyte Esterase NEG, Ur Microscopic SEDIMENT EXAMINED, Urine RBC 3-5, Urine WBC 1-3 H, Ur Epithelial Cells FEW, Urine Bacteria FEW H, Urine Hemoglobin SMALL H, Urine Glucose NEG Assessment/Plan Assessment: Ms. Curiel is a 76-year-old female with past medical history of hypertension, hyperlipidemia, peripheral vascular disease, seizure disorder, chronic lower extremity lymphedema, nephrotic syndrome (renal biopsy shows FSGS) on steroids and chronic lower back pain presenting for swelling, pain and redness of right lower extremity found to have cellulitis of the RLE #Nonpurulent right lower extremity cellulitis, resolved Bcx negative thus far Venous doppler negative for DVT Arterial doppler: some peripheral vascular disease on RLE Completed 7-day course of ABX (Cefazolin + Keflex). RLE appeared to be in chronic change from cellulitis without pain/elevated skin temp. Encouraged patient to try her best of OOB to chair. Cultures negative so far. Vascular surgery suggested no intervention at this time for PVD. If patient becomes hypotensive consider IV steroids (stress dose) #Acute Kidney Injury/ATN from use of Lisinopril (new onset 09/22/2017): Cr increased suddenly on latest lab. likely 2/2 restart of lisinopril after 24hr urine collection, with L kidney KENNEDY. Will hold lisinopril, spironolactone, and K (to avoid hyperkalemia in CRF). Recheck BEP daily to trend Cr. Patient's Cr today at 3.9. Lasix is held. Renal artery Doppler ultrasound negative for renal artery stenosis. Patient's scheduled Prednisone taper will start 09/30 to 10mg BID. Will continue at this dose. Per Renal, would not start Tacrolimus today and defer it to outpatient nephro. #Chronic moderate hyponatremia Na 128 on admission -> 138 on latest lab at baseline continue to monitor 1200ml fluid restriction per nephro. Patient's compliance has been excellent. Zaroxolyn on hold as well #History of nephrotic syndrome 24hr urine showed 12.6gm protein, aligned with her underlying nephrotic symdrome. - Will redo 24hr urine collection. f/u microalbumin/cr ratio Hold lisinopril as above. Continue PO prednisone (10 BID) per patient's tapering schedule. Continue Bactrim for PCP prophylaxis in context of chronic steroid use If blood pressure drops consider IV steroid stress dose #Chronic lower extremity lymhedema Leg elevation Holding diuretics/renal meds as above. #Chronic medical conditions: hyperlipidemia, GERD, HTN, hypothyroid, seizures and chronic back pain continue Lipitor, Zetia, Pepcid, metoprolol and Vicodin, phenytoin, aspirin, levothyroxine #FULL CODE Heart Healthy Diet #lovenox Problem List: 1. Nephrotic syndrome 2. Elevated serum creatinine Pain Ratin Pain Location: NA Pain Goal: Remain pain free Pain Plan: see AP Tomorrow's Labs & Rationales: NA Consulting Request: Consulting Specialty: Nephrology Consulting Physician: Reason for Consult: FSGS
--- NOTE | 2017-10-04 11:19 | PN- Nephrology ---
Assessment/Plan Assessment: 1. ANURAG: ? ATN due to diuresis & RAAS interruption in face of nephrotic syndrome; ? rapidly progressive FSGS. GFR stable w/o renal replacement indication 2. Nephrotic syndrome: bx FSGS; steroid resistant --> no calcineurin inhibitors at current GFR Suggestion: 1. Continue currrent prednisone 2. recheck U prot/Cr ratio --> can do on 4-8 hr collection today w/o full 24 hr urine Favor d/c home on 80 mg po Lasix out of hospital w outpt labs end of this week - -> has outpt apppt already for f/u next week in our office w Dr Gardner Subjective Subjective: No uremic sx No SOB Objective Vital Signs and I&Os Vital Signs Date Time Temp Pulse Resp B/P B/P Pulse O2 O2 Flow FiO2 Mean Ox Delivery Rate 10/04 0949 84 150/80 10/04 0557 98.1 84 20 150/80 97 Room Air 10/03 2114 97.9 85 18 140/82 95 Room Air 10/03 2035 85 140/82 10/03 1348 97.9 92 18 130/70 95 Room Air Intake & Output 10/04 1600 10/04 0400 10/03 1600 10/03 0400 10/02 1600 10/02 0400 Intake Total 600 750 400 340 300 Output Total 600 500 250 Balance 0 250 150 340 300 Intake, IV 10 Intake, Oral 600 740 400 340 300 Number 1 Bowel Movements Output, Urine 600 500 250 Physical Exam General Appearance: well developed/nourished, no apparent distress, alert, awake Head: atraumatic Ears, Nose, Throat: normal ENT inspection Neck: normal inspection Respiratory: normal breath sounds, quiet respiration, lungs clear Cardiovascular: regular rate/rhythm Abdomen: soft, non-tender Extremities: trace edema Neurologic/Psychiatric: no motor/sensory deficits, awake, alert Current Medications: Current Medications Sig/Arsalan Start time Last Medication Dose Route Stop Time Status Admin Acetaminophen 650 MG .STK-MED ONE 10/03 1548 DC PO 10/03 1549 Acetaminophen 1,000 MG Q6P PRN 09/19 0345 AC N/A 1 UNIT IV Acetaminophen 650 MG Q8P PRN 09/19 0245 AC 10/03 PO 1548 Aspirin Buffered 81 MG QAM 09/19 1000 AC 10/04 PO 0949 Atorvastatin Calcium 40 MG 1700 09/19 1700 AC 10/03 PO 1545 Diphenhydramine HCl 1 FLETCHER Q6-PRN PRN 09/24 1945 AC 09/25 TOP 0430 Ezetimibe 10 MG QPM 09/19 2200 AC 10/03 PO 2034 Famotidine 40 MG DAILY 09/19 1000 AC 10/04 PO 0949 Guaifenesin 10 ML Q6P PRN 09/25 0415 AC 09/25 PO 0430 Heparin Sodium 5,000 UNIT Q8 10/02 1400 AC 10/04 (Porcine) SC 0555 Levothyroxine Sodium 0.05 MG DAILY AC 09/19 0700 AC 10/04 PO 0555 Metoprolol Tartrate 50 MG BID 09/19 1000 AC 10/04 PO 0949 Phenytoin 200 MG BID 09/19 1000 AC 10/04 PO 0948 Prednisone 10 MG BID 09/30 1000 AC 10/04 PO 0949 Results Pertinent Lab Results: Laboratory Tests 10/04 10/03 0700 1121 Chemistry Sodium (137 - 145 mmol/L) 140 Potassium (3.5 - 5.1 mmol/L) 4.2 Chloride (98 - 107 mmol/L) 104 Carbon Dioxide (22 - 30 mmol/L) 27 Anion Gap (5 - 16) 9 BUN (7 - 17 mg/dL) 57 H Creatinine (0.5 - 1.0 mg/dL) 3.8 H Estimated GFR (>60 ml/min) 12 L BUN/Creatinine Ratio (7 - 25 %) 15.0 Urines Urine Color (YEL,AMB,STR) YEL Urine Clarity (CLEAR) CLEAR Urine pH (5.0 - 8.0) 7.0 Ur Specific [place] (1.001 - 1.035) 1.020 Urine Protein (NEG,<30 MG/DL) 100 H Urine Ketones (NEG) NEG Urine Nitrite (NEG) NEG Urine Bilirubin (NEG) NEG Urine Urobilinogen (0.1 - 1.0 EU/dl) 0.2 Ur Leukocyte Esterase (NEG) NEG Ur Microscopic SEDIMENT EXAMINED Urine RBC (0 - 5 /HPF) 3-5 Urine WBC (0 - 2 /HPF) 1-3 H Ur Epithelial Cells (NONE,FEW) FEW Urine Bacteria (NEG/NONE) FEW H Urine Hemoglobin (NEG) SMALL H Urine Glucose (N MG/DL) NEG 10/03 10/02 0750 0752 Chemistry Sodium (137 - 145 mmol/L) 139 138 Potassium (3.5 - 5.1 mmol/L) 4.0 4.2 Chloride (98 - 107 mmol/L) 105 103 Carbon Dioxide (22 - 30 mmol/L) 25 27 Anion Gap (5 - 16) 10 9 BUN (7 - 17 mg/dL) 64 H 71 H Creatinine (0.5 - 1.0 mg/dL) 3.9 H 3.7 H Estimated GFR (>60 ml/min) 11 L 12 L BUN/Creatinine Ratio (7 - 25 %) 16.4 19.2 Magnesium (1.6 - 2.3 mg/dL) 2.2 Hematology CBC w Diff NO MAN DIFF REQ NO MAN DIFF REQ WBC (4.8 - 10.8 /CUMM) 16.4 H 16.7 H RBC (4.20 - 5.40 /CUMM) 2.99 L 2.85 L Hgb (12.0 - 16.0 G/DL) 10.3 L 9.8 L Hct (37 - 47 %) 29.8 L 28.5 L MCV (81.0 - 99.0 FL) 99.9 H 100.1 H MCH (27.0 - 31.0 PG) 34.4 H 34.4 H MCHC (33.0 - 37.0 G/DL) 34.4 34.4 RDW (11.5 - 14.5 %) 13.6 13.6 Plt Count (130 - 400 /CUMM) 692 H 686 H MPV (7.4 - 10.4 FL) 7.0 L 6.9 L Gran % (42.2 - 75.2 %) 79.4 H 80.8 H Lymphocytes % (20.5 - 51.1 %) 11.4 L 11.1 L Monocytes % (1.7 - 9.3 %) 7.8 7.1 Eosinophils % (0 - 5 %) 0.8 0.6 Basophils % (0.0 - 2.0 %) 0.6 0.4 Absolute Granulocytes (1.4 - 6.5 /CUMM) 13.0 H 13.5 H Absolute Lymphocytes (1.2 - 3.4 /CUMM) 1.9 1.8 Absolute Monocytes (0.10 - 0.60 /CUMM) 1.3 H 1.2 H Absolute Eosinophils (0.0 - 0.7 /CUMM) 0.1 0.1 Absolute Basophils (0.0 - 0.2 /CUMM) 0.1 0.1
[2017-10-04 13:52] VITALS: BP 150/60
[2017-10-04] MEDS ORDERED: PREDNISONE5 M1 PO (14:34)
== END 2017-10-04 16:25 | DRG 871 ==
LOC: ERH 19:50 → 2NA 23:10 → ERHI 23:10 → ENRESERV 09-19 01:04 → 2NA 09-19 02:53 → ENPENDDIS 10-04 14:35 → ENTRNSPT 10-04 15:57 → CMPTRNSPT 10-04 15:59 → 2NA 10-04 16:25
PROVIDERS: Internal Medicine; Pediatrics; Student in an Organized Health Care Education/Training Program
DX: A41.9 Sepsis, unspecified organism (principal); N17.0 Acute kidney failure with tubular necrosis; I50.32 Chronic diastolic (congestive) heart failure; I13.0 Hypertensive heart and chronic kidney disease with heart failure and stage 1 through stage 4 chronic kidney disease, or unspecified chronic kidney disease; L03.115 Cellulitis of right lower limb; E87.1 Hypo-osmolality and hyponatremia; L97.819 Non-pressure chronic ulcer of other part of right lower leg with unspecified severity; N14.1 Nephropathy induced by other drugs, medicaments and biological substances; G40.909 Epilepsy, unspecified, not intractable, without status epilepticus; E78.5 Hyperlipidemia, unspecified; I89.0 Lymphedema, not elsewhere classified; I73.9 Peripheral vascular disease, unspecified; G89.29 Other chronic pain; T46.4X5A Adverse effect of angiotensin-converting-enzyme inhibitors, initial encounter; M54.9 Dorsalgia, unspecified; N18.9 Chronic kidney disease, unspecified; I25.10 Atherosclerotic heart disease of native coronary artery without angina pectoris; E03.9 Hypothyroidism, unspecified; K21.9 Gastro-esophageal reflux disease without esophagitis; Z79.52 Long term (current) use of systemic steroids; Z79.891 Long term (current) use of opiate analgesic
CPT/HCPCS: 2NASP; ERO; 36415; 71046; 73562-RT; 73590-RT; 81001; 82436; 82570; 87040; 87804; 87804-59; 93005; 93010; 93925; 96374; 97110-GO; 97116-GO; 97161-GP; 97530-GO; J0131; J0690; J1644; J1650; J2270; J7512